=== PATIENT | female | born 1940 | race Caucasian/White ===

== ENCOUNTER → 2019-05-20 | Outpatient (CLI) | payer MEDICARE ==
--- NOTE | 2019-05-20 14:16 | BD ---
EXAMINATION TYPE: Axial Bone Density DATE OF EXAM: 05/20/2019 COMPARISON: 08.26.2014 CLINICAL HISTORY: 79 YR OLD WOMAN...ICD-10 CODE: M85.80 BONE DISORDER Height: 61.4 Weight: 166 FRAX RISK QUESTIONS: Secondary Osteoporosis: YES 4. Malnutrition: YES, VOMITING OFTEN, LACK OF NUTRIENTS. RISK FACTORS HISTORY OF: HX OF ELBOW FX CHILD, Family History of Osteoporosis: POSSIBLY MOTHER, W/O FX OF HIP Diet low in dairy products/other sources of calcium: YES Postmenopausal woman: TOTAL HYST AT AGE 51 Take estrogen and/or progesterone medications: PREMARIN IN THE PAST FOR ABOUT 10 YRS Lost more than 2 inches in height since high school: YES Frequent falls: USES A CANE MEDICATIONS: Thyroid Medications: YES, LEVOTHYROXINE FOR ABOUT 15 YRS Additional Medications: BP MEDS, REFLUX MEDS, VITAMINS, ASPIRIN, TYLENOL, IRON TABLET, STATIN FOR CHO LESTEROL Additional History: FREQUENT VOMITING, OSTEOARTHRITIS, REFLUX, HYPERTENSION, EXAM MEASUREMENTS: Bone mineral densitometry was performed using the Vusion System. Bone mineral density as measured about the Lumbar spine is: ----- L1-L4(G/cm2): 1.355 T Score Values are as follows: ----- L1: 1.1 ----- L2: 0.8 ----- L3: 1.6 ----- L4: 2.1 ----- L1-L4: 1.5 Bone mineral density has: Increased 6.2% SINCE STUDY OF, 08.26.2014 Bone mineral density about the R hip (g/cm2): 0.904 Bone mineral density about the L hip (g/cm2): 0.819 T Score values are as follows: -----R Neck: -2.4 -----L Neck: -2.7 -----R Total: -0.8 -----L Total: -1.5 Bone mineral density has: Decreased -12.5% SINCE STUDY OF , 08.26.2014 FRAX%s: THERE IS A 19.9% CHANCE FOR A MAJOR OSTEOPOROTIC FX AND 7.2% FOR HIP....PROBABILITY FOR FX IN 10 YRS TIME IMPRESSION: Osteoporosis (T Score less than -2.5). There is increased fracture risk and therapy is usually indicated based on age. Re-Screen 1-2 years. NOTE: T-SCORE=SD OF THE YOUNG ADULT MEAN.
--- NOTE | 2019-05-24 09:25 | MM ---
Reason for exam: screening (asymptomatic). Last mammogram was performed 2 years and 8 months ago. History: Patient is postmenopausal. 2 benign excisional biopsies of the left breast. 2 benign excisional biopsies of the right breast. Took estrogen for 13 years beginning at age 51. Physical Findings: A clinical breast exam by your physician is recommended on an annual basis and results should be correlated with mammographic findings. MG 3D Screening Mammo W/Cad Bilateral CC and MLO view(s) were taken. Prior study comparison: September 25, 2016, left breast MG work up mamm w CAD LT. September 09, 2016, bilateral MG screening mammo w CAD. The breast tissue is heterogeneously dense. This may lower the sensitivity of mammography. No significant changes when compared with prior studies. ASSESSMENT: Benign, BI-RAD 2 RECOMMENDATION: Routine screening mammogram of both breasts in 1 year.
== END | disposition home or self-care (01) ==
LOC: RADMAMWWP 09:42
PROVIDERS: ATTEND Internal Medicine
DX: Z12.31 Encounter for screening mammogram for malignant neoplasm of breast (principal); M81.0 Age-related osteoporosis without current pathological fracture
CPT/HCPCS: 77063; 77067; 77080

== ENCOUNTER → 2019-06-29 | Outpatient (CLI) | payer MEDICARE ==
--- NOTE | 2019-06-29 10:44 | US ---
EXAMINATION TYPE: US abdomen complete DATE OF EXAM: 06/29/2019 COMPARISON: NONE CLINICAL HISTORY: Abnormal Wt Loss R63.4. Abnormal weight loss. Bloating. EXAM MEASUREMENTS: Liver Length: 16.9 cm Gallbladder Wall: Surgically absent cm CBD: 0.6 cm Spleen: 8.3 cm Right Kidney: 9.0 x 3.5 x 4.0 cm Left Kidney: 9.3 x 4.0 x 3.3 cm Pancreas: Obscured by bowel gas Liver: Again there are numerous hepatic cysts varying in size. Some of these contain thin internal s epta. These appear to measure up to at least 4.2 cm. No solid hepatic lesion is demonstrated on today 's exam. Numerous hepatic cysts are seen on the prior exam of 02/04/2012. Gallbladder: Surgically absent Evidence for sonographic Contreras's sign: No CBD: wnl Spleen: wnl Right Kidney: wnl Left Kidney: wnl Upper IVC: wnl Abd Aorta: wnl The liver is heterogenous with numerous cysts. The intrahepatic portion of the IVC and proximal abdom inal aorta are within normal limits. Gallbladder surgically absent. Common bile duct is unremarkable . The visualized portions of the pancreas are homogenous. The spleen is unremarkable. Kidneys are symmetric and free of hydronephrosis. No renal lesions are seen. IMPRESSION: 1. Pancreas is obscured by overlying bowel gas. 2. Numerous simple appearing hepatic cysts with no internal complexity nor solid lesion seen at this time.
--- NOTE | 2019-06-29 10:47 | US ---
EXAMINATION TYPE: US pelvic complete DATE OF EXAM: 06/29/2019 COMPARISON: NONE CLINICAL HISTORY: Abnormal Wt Loss R63.4. Abnormal weight loss. Total hysterectomy. TECHNIQUE: Transabdominal (TA). EXAM MEASUREMENTS: Uterus: Surgically absent cm Endometrial Stripe: Surgically absent cm Right Ovary: Surgically absent cm Left Ovary: Surgically absent cm 1. Uterus: Surgically absent 2. Endometrium: Surgically absent 3. Right Ovary: Surgically absent 4. Left Ovary: Surgically absent 5. Bilateral Adnexa: wnl IMPRESSION: Surgical absence of the ovaries and uterus. No solid mass or suspicious cystic mass is se en within the pelvis.
== END | disposition home or self-care (01) ==
LOC: RADUSWWP 09:16
PROVIDERS: ATTEND Internal Medicine Gastroenterology
DX: K76.89 Other specified diseases of liver (principal); Z90.710 Acquired absence of both cervix and uterus; Z90.722 Acquired absence of ovaries, bilateral
CPT/HCPCS: 76700; 76856; 76857

== ENCOUNTER 2019-08-04 10:53 | Day surgery (SDC) | payer MEDICARE ==
[2019-08-02 15:50] VITALS: BMI 30.4
[~2019-08-04 10:53] MED LIST: LACTATED RINGERS 1,000 ML IV SCH; LIDOCAINE 1% 20 ML VIAL (10MG/ML) FOR IV START INTRADERMA PRN
[2019-08-04 11:24] VITALS: RESP 18; TEMP 98.8
[2019-08-04] MEDS ORDERED: LIDOCAINE 1% INJ 10MG/ML (20 ML MDV) ONE (12:31)
[2019-08-04] MEDS ORDERED: PROPOFOL 10 MG/ML 20 ML VIAL IV ONE (12:31)
--- NOTE | 2019-08-04 12:42 | P.PCN ---
Date of Procedure: 08/04/19 Procedure(s) Performed: BRIEF HISTORY: Patient is a 79-year-old, pleasant, white female scheduled for an upper endoscopy as a part of evaluation of chronic persistent intermittent epigastric pain associated with loss of almost 30 pounds in the last 6 months duration. He was treated with Prilosec 20 mg daily with some improvement in his symptoms. She is hence scheduled for an upper endoscopy to evaluate further. PROCEDURE PERFORMED: Esophagogastroduodenoscopy with biopsy. PREOPERATIVE DIAGNOSIS: Chronic intermittent epigastric pain for 6 months duration and progressive weight. IV sedation per anesthesia. PROCEDURE: After informed consent was obtained, the patient was brought into the endoscopy unit. IV sedation was administered by Anesthesia under continuous monitoring. Initially the Olympus GIF-140 video endoscope was inserted into the mouth. Esophagus intubated without any difficulty. It was gradually advanced into the stomach and duodenum and carefully examined. The bulb and the second part of the duodenum appeared normal. The scope at this time was withdrawn to the stomach, adequately insufflated with air, and upon careful examination the antrum had mild gastritis and biopsies were done from this area., Rest of the mucosa of the body, cardia and the fundus appeared normal. The scope was then withdrawn into the esophagus. The GE junction was located at 39 cm from the incisors. There was a moderate size paraesophageal hiatal hernia noted. The esophagus appeared normal. There were no erosions or ulcerations seen and the patient tolerated the procedure well. IMPRESSION: 1. Paraesophageal hiatal hernia. 2. Mild antral gastritis. RECOMMENDATIONS: The findings of this examination were discussed with the patient as well as her family. She was advised to follow with the biopsy results. In the meantime she will continue with Prilosec 20 mg twice daily and follow antireflux measures. She was increased on the small frequent meals. She will also be scheduled for CT of abdomen to rule out pancreatic pathology. She was advised to follow up in office in 2 weeks
[2019-08-04 13:07] VITALS: BP 131/70; PULSE 62
== END 2019-08-04 13:15 | disposition home or self-care (01) ==
LOC: ORWHC2ENDO 10:53
PROVIDERS: ATTEND Internal Medicine Gastroenterology
DX: K29.50 Unspecified chronic gastritis without bleeding (principal); K29.80 Duodenitis without bleeding; K21.9 Gastro-esophageal reflux disease without esophagitis; K44.9 Diaphragmatic hernia without obstruction or gangrene; G89.29 Other chronic pain; I10 Essential (primary) hypertension; E07.9 Disorder of thyroid, unspecified; Z88.2 Allergy status to sulfonamides; Z88.0 Allergy status to penicillin; Z88.1 Allergy status to other antibiotic agents; Z88.5 Allergy status to narcotic agent; Z88.8 Allergy status to other drugs, medicaments and biological substances; Z79.899 Other long term (current) drug therapy; Z79.890 Hormone replacement therapy
CPT/HCPCS: 88305; 43239; J2001; J2704

== ENCOUNTER → 2019-08-06 | Outpatient (CLI) | payer MEDICARE ==
--- NOTE | 2019-08-06 13:32 | CT ---
EXAMINATION TYPE: CT abdomen pelvis w con DATE OF EXAM: 08/06/2019 HISTORY: Abdominal pain and bloating. 20lb weight loss over past year and half. CT DLP: 1190mGycm Automated Exposure Control for Dose Reduction was Utilized. CONTRAST: CT scan of the abdomen and pelvis is performed with IV Contrast, patient injected with 100 mL of Isov ue M300. COMPARISON: Complete abdominal ultrasound June 29, 2019 FINDINGS: LUNG BASES: There is intrathoracic stomach with abnormal twisting as the greater curvature is more cr anial in position than lesser curvature. This is more paraesophageal type as gastroesophageal juncti on remains below diaphragm Moderate three-vessel coronary artery calcification is present which is no manolo marked of underlying coronary artery disease. LIVER/GB: Enlarged right hepatic lobe. Innumerable simple appearing thin-walled cysts along with some lobulated simple cysts and simple appearing cysts within septa are scattered throughout the liver. T here are areas of parenchymal calcification more prominent in the upper liver. Cholecystectomy clips are noted. Findings correlate with ultrasound. PANCREAS: No significant abnormality is seen. SPLEEN: No significant abnormality is seen. ADRENALS: No significant abnormality is seen. KIDNEYS: No significant abnormality is seen. BOWEL: Oral contrast reaches the level of the splenic flexure. Low-lying cecum at the right pelvis is present. No suspicious small or large bowel dilatation. Some diverticula in the left and sigmoid col on are present. No CT evidence for acute diverticulitis. UTERUS/ADNEXA: Uterus is surgically absent. LYMPH NODES: No greater than 1cm abdominal or pelvic lymph nodes are appreciated. OSSEOUS STRUCTURES: Moderate narrowing and spurring left L4-L5 level. OTHER: Moderate calcified plaque of the aorta extends into branch vessels. IMPRESSION: 1. No ascites. No bowel obstruction. 2. No suspicious mass or adenopathy. 3. Large paraesophageal hernia or intrathoracic stomach with abnormal twisting. Advise surgical refer ral if this is not known finding. 4. Right lobe hepatomegaly with innumerable fairly simple appearing cysts scattered throughout the li shari redemonstrated.
== END | disposition home or self-care (01) ==
LOC: RADCTMAIN 10:19
PROVIDERS: ATTEND Internal Medicine Gastroenterology
DX: R16.0 Hepatomegaly, not elsewhere classified (principal); R10.13 Epigastric pain
CPT/HCPCS: 82565; 84520; 74177; 36415; Q9967

== ENCOUNTER 2020-04-25 10:43 | Day surgery (SDC) | payer MEDICARE ==
[2020-04-19 16:22] VITALS: BMI 30.2
[~2020-04-25 10:43] MED LIST changes: +ALPRAZolam 0.25 MG TAB PO PRN; +ALPRAZolam 0.5 MG TAB PO PRN; -LACTATED RINGERS 1,000 ML IV SCH; -LIDOCAINE 1% 20 ML VIAL (10MG/ML) FOR IV START INTRADERMA PRN; +NITROGLYCERIN SL TABS 0.4 MG TAB SUBLINGUAL PRN; +SODIUM CHLORIDE 0.9% 1,000 ML in EMPTY BAG 1 BAG IV ONE
[2020-04-25] MEDS ORDERED: LIDOCAINE 1% INJ 10MG/ML (20 ML MDV) SQ ONE (13:19)
[2020-04-25] MEDS ORDERED: MIDAZOLAM 2 MG/2 ML VIAL IV ONE (13:20)
[2020-04-25] MEDS ORDERED: BIVALIRUDIN BOLUS 250 MG/50 ML IV ONE (13:30)
[2020-04-25] MEDS ORDERED: NITROGLYCERIN 1000MCG/10ML SYRINGE INTRACORON ONE (13:34)
[2020-04-25] MEDS ORDERED: BIVALIRUDIN 250 MG in SODIUM CHLORIDE 0.9% 39.5 ML IV ONE (13:34)
[2020-04-25] MEDS ORDERED: CLOPIDOGREL 75 MG TAB PO ONE (13:34)
[2020-04-25] MEDS ORDERED: IOPAMIDOL-370 125ML BTL INJ ONE (13:35)
[2020-04-25] MEDS ORDERED: ATROPINE SULFATE 0.1 MG/ML 10ML SYRINGE IV PRN (13:48)
[2020-04-25] MEDS ORDERED: MAG HYDROX/AL HYDROX/SIMETH 30 ML CUP PO PRN (13:48)
[2020-04-25] MEDS ORDERED: ZOLPIDEM 5 MG TAB PO PRN (13:48)
[2020-04-25] MEDS ORDERED: RX INFO: IV CONTRAST WAS GIVEN 1 EACH MISC MISCELLANE PRN (13:48)
[2020-04-25] MEDS ORDERED: SODIUM CHLORIDE 0.9% 1,000 ML IV SCH (14:00)
--- NOTE | 2020-04-25 17:03 | CC ---
CARDIAC CATHETERIZATION REPORT DATE OF SERVICE: 04/25/2020. PERFORMING PHYSICIAN: Rosalino Franco M.D. PROCEDURE PERFORMED: 1. Selective right and left coronary angiogram. 2. Left heart catheterization. 3. Successful stenting of the mid right coronary artery using a 4.0 x 15 mm Xience drug-eluting stent with an excellent angiographic result. INDICATION: This is a 80-year-old female patient with hypertension and dyslipidemia who was experiencing symptoms of shortness of breath with exertion in spite of maximized medical treatment. Because of that, heart catheterization was advised. APPROACH: Right common femoral artery. COMPLICATIONS: None. LEVEL OF SEDATION: Moderate, with sedation length of 18 minutes. PROCEDURE DESCRIPTION: After obtaining informed consent, the patient was brought to the cardiac catheter finisher and inspector. The right common femoral artery was cannulated using micropuncture technique. The micropuncture wire passed easily. Then I placed a 6-British sheath. After that I did selective right and left coronary angiogram with JR3.5 and JL3.5 catheters. Left heart catheterization was performed using 6-British pigtail catheter. After that I did intervene on the RCA. Please see separate paragraph for that. SELECTIVE CORONARY ANGIOGRAM: 1. The RCA is a large-caliber vessel. It is a dominant vessel. The mid RCA has a lesion that appeared to be in the range of 70%. 2. The left main is angiographically normal. It bifurcates into LCX and LAD. 3. The LCX is a large-caliber vessel. It is a nondominant vessel. The LCX has mild disease only. In the mid portion it gives rise to an OM1 and OM2 and both appeared to be angiographically normal. 4. The LAD. The proximal LAD appeared to be angiographically normal. The mid LAD has mild disease only by the bifurcation of a medium-sized diagonal branch. The LAD distally appeared to be tortuous but angiographically normal. 5. HEMODYNAMICS: The LVEDP was 10 to 12 mmHg without significant gradient across the aortic valve. of the RCA. PERCUTANEOUS CORONARY INTERVENTION OF THE RIGHT CORONARY ARTERY: Anticoagulation was initiated using Angiomax. Subsequently I did engage the RCA using JR3.5 guide. I did wire it using a run-through wire. After that I did direct stenting of the lesion in the RCA using 4.0 x 15 mm Xience LISA where the stent was positioned under fluoroscopic guidance and deployed under 8 atmospheres for 20 seconds. The following angiogram showed good angiographic results and the procedure was completed without any complication. CONCLUSION: 1. 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 2. Mild disease involving the left coronary system. 3. Successful stenting of the mid RCA using a 4.0 x 15 mm Xience LISA with an excellent angiographic result. POST-PROCEDURE MANAGEMENT: 1. Medical treatment. 2. Follow up with the patient. MMODL / IJN: [id number] /
[2020-04-25] MEDS ORDERED: lisinopriL 20 MG TAB PO SCH (21:00)
[2020-04-26] MEDS ORDERED: LEVOTHYROXINE 100 MCG TAB PO SCH (06:30)
[2020-04-26 07:54] LABS: Basophils % (A) 0 %; Eosinophils # (A) 0.2 k/uL (0-0.7); Eosinophils % (A) 4 %; HCT 35.6 % (34.0-46.0); HGB 11.2 gm/dL (11.4-16.0); Lymphocytes # (A) 1.3 k/uL (1.0-4.8); Lymphocytes % (A) 32 %; MCH 28.9 pg (25.0-35.0); MCHC 31.6 g/dL (31.0-37.0); MCV 91.6 fL (80.0-100.0); Mean Platelet Volume 8.3; Monocytes # (A) 0.3 k/uL (0-1.0); Monocytes % (A) 8 %; Neutrophils # (A) 2.1 k/uL (1.3-7.7); Neutrophils % (A) 52 %; Platelet Count 170 k/uL (150-450); RBC 3.89 m/uL (3.80-5.40); RDW 13.4 % (11.5-15.5)
[2020-04-26 08:06] LABS: African American GFR (CKD) >90 (>60 ml/min/1.73 sqM); Anion Gap 4 mmol/L; Blood Urea Nitrogen 18 mg/dL (7-17); Calcium 8.2 mg/dL (8.4-10.2); Carbon Dioxide 24 mmol/L (22-30); Chloride 108 mmol/L (98-107); Glucose 80 mg/dL (74-99); Non-African American GFR(CKD) 81 (>60 ml/min/1.73 sqM); Potassium 4.1 mmol/L (3.5-5.1); Sodium 136 mmol/L (137-145)
--- NOTE | 2020-04-26 08:17 | P.DS ---
Providers Date of admission: March 262019 Attending physician: Rosalino Franco Consults: 04/25/20 13:48 Consult Physician Routine Consulting Provider: [facility] Consult Reason/Comments: Post Interventional patient Do you want consulting provider notified?: Already Contacted Primary care physician: Olive Hendrickson [facility] Course: This is a 80-year-old female patient was hypertension and dyslipidemia was experiencing symptoms of shortness of breath with exertion. She underwent heart catheterization yesterday and that revealed severe single-vessel coronary artery disease involving the mid RCA. She underwent successful stenting of the RCA with a good angiographic results and without any complication from a right groin approach The right groin is soft and nontender and without any bruises. The patient is going to be discharged home on dual antiplatelet therapy along with high intensity statin. I am going to follow-up with the patient next week in the office. Plan - Discharge Summary Discharge Rx Participant: No New Discharge Prescriptions: New Aspirin 325 mg PO DAILY #90 tab Atorvastatin Calcium [Lipitor] 80 mg PO DAILY #90 tablet Clopidogrel [Plavix] 75 mg PO DAILY #90 tab No Action Nadolol [Corgard] 40 mg PO DAILY Furosemide [Lasix] 20 mg PO DAILY Enalapril [Vasotec] 20 mg PO DAILY Alendronate Sodium [Fosamax] 70 mg PO WE Omeprazole [PriLOSEC] 20 mg PO AC-BRKFST Levothyroxine Sodium 100 mcg PO DAILY Vit C/E/Zn/Coppr/Lutein/Zeaxan [Preservision Areds 2 Softgel] 1 each PO DAILY Multivitamin with Iron [Multivitamins with Iron] 1 each PO DAILY Enalapril [Vasotec] 10 mg PO HS ALPRAZolam [Xanax] 0.25 mg PO BID PRN PRN Reason: Anxiety Acetaminophen Tab [Tylenol] 325 mg PO DAILY PRN PRN Reason: Pain Mineral Supplement 1 tab PO DAILY Discharge Medication List ALPRAZolam [Xanax] 0.25 mg PO BID PRN 08/02/19 [History] Alendronate Sodium [Fosamax] 70 mg PO WE 08/02/19 [History] Enalapril [Vasotec] 10 mg PO HS 08/02/19 [History] Enalapril [Vasotec] 20 mg PO DAILY 08/02/19 [History] Furosemide [Lasix] 20 mg PO DAILY 08/02/19 [History] Levothyroxine Sodium 100 mcg PO DAILY 08/02/19 [History] Multivitamin with Iron [Multivitamins with Iron] 1 each PO DAILY 08/02/19 [History] Nadolol [Corgard] 40 mg PO DAILY 08/02/19 [History] Omeprazole [PriLOSEC] 20 mg PO AC-BRKFST 08/02/19 [History] Vit C/E/Zn/Coppr/Lutein/Zeaxan [Preservision Areds 2 Softgel] 1 each PO DAILY 08/02/19 [History] Acetaminophen Tab [Tylenol] 325 mg PO DAILY PRN 04/19/20 [History] Mineral Supplement 1 tab PO DAILY 04/19/20 [History] Aspirin 325 mg PO DAILY #90 tab 04/26/20 [Rx] Atorvastatin Calcium [Lipitor] 80 mg PO DAILY #90 tablet 04/26/20 [Rx] Clopidogrel [Plavix] 75 mg PO DAILY #90 tab 04/26/20 [Rx] Follow up Appointment(s)/Referral(s): Rosalino Franco MD [STAFF PHYSICIAN] - 05/04/20 1:00 pm
[2020-04-26] MEDS ORDERED: ASPIRIN 325 MG TAB PO SCH (09:00)
[2020-04-26] MEDS ORDERED: lisinopriL 20 MG TAB PO SCH (09:00)
[2020-04-26] MEDS ORDERED: CLOPIDOGREL 75 MG TAB PO SCH (12:00)
[2020-04-26] MEDS ORDERED: NON FORMULARY DRUG (Alendronate Sodium [Fosamax] 70 MG) PO SCH (13:50)
[2020-04-28 05:35] VITALS: BP 143/60; PULSE 54; RESP 16; TEMP 97.5
== END 2020-04-26 10:00 | disposition home or self-care (01) ==
LOC: CATHCVL 10:43 → 3SCARD 18:35 → CATHCVL 04-26 10:00
PROVIDERS: ATTEND Internal Medicine Interventional Cardiology
DX: I25.110 Atherosclerotic heart disease of native coronary artery with unstable angina pectoris (principal); I10 Essential (primary) hypertension; I38 Endocarditis, valve unspecified; E78.5 Hyperlipidemia, unspecified; Z82.49 Family history of ischemic heart disease and other diseases of the circulatory system; Z79.899 Other long term (current) drug therapy; Z88.2 Allergy status to sulfonamides; Z88.5 Allergy status to narcotic agent
CPT/HCPCS: 93458; 80048; 85025; C9600; C1760; C1769 ×3; C1894; C1887; C1874; J2250; J2001; J0583; Q9967

== ENCOUNTER → 2021-05-08 | Outpatient (CLI) | payer MEDICARE ==
--- NOTE | 2021-05-08 10:06 | US ---
EXAMINATION TYPE: US abdomen complete DATE OF EXAM: 05/08/2021 COMPARISON: 08/06/2019, 06/29/2019 CLINICAL HISTORY: R94.5 ABN LIVER FUNCTIONS. no symptoms, h/o liver cysts and cholecystectomy, recent abn liver function test EXAM MEASUREMENTS: Liver Length: 16.0 cm Gallbladder Wall: Surgically absent CBD: 0.8 cm Spleen: 8.0 cm Right Kidney: 9.8 x 3.7 x 3.3 cm Left Kidney: 8.9 x 3.5 x 4.2 cm Pancreas: wnl Liver: innumerable liver cysts seen that distorts views of liver Gallbladder: Surgically absent Evidence for sonographic Contreras's sign: no CBD: wnl Spleen: wnl Right Kidney: wnl Left Kidney: wnl Upper IVC: wnl Abd Aorta: wnl Common bile duct is unremarkable. The visualized portions of the pancreas are homogenous. The splee n is unremarkable. Kidneys are symmetric and free of hydronephrosis. No renal lesions are seen. IMPRESSION: 1. Hepatic cysts are again seen. 2. Status post cholecystectomy.
== END | disposition home or self-care (01) ==
LOC: RADUSWWP 07:44
PROVIDERS: ATTEND Family Medicine
DX: K76.89 Other specified diseases of liver (principal); Z90.49 Acquired absence of other specified parts of digestive tract
CPT/HCPCS: 76700

== ENCOUNTER → 2021-08-28 | Outpatient (CLI) | payer MEDICARE ==
[2021-08-28 11:50] LABS: HGB 12.5 gm/dL (11.4-16.0); MCH 31.2 pg (25.0-35.0); MCHC 33.8 g/dL (31.0-37.0); MCV 92.4 fL (80.0-100.0); Mean Platelet Volume 8.3; Platelet Count 199 k/uL (150-450); RDW 13.3 % (11.5-15.5); WBC 5.5 k/uL (3.8-10.6)
== END | disposition home or self-care (01) ==
LOC: LABPAT 10:23
PROVIDERS: ATTEND Obstetrics & Gynecology
DX: Z01.818 Encounter for other preprocedural examination (principal); I10 Essential (primary) hypertension; Q52.5 Fusion of labia; N95.2 Postmenopausal atrophic vaginitis; R00.1 Bradycardia, unspecified
CPT/HCPCS: 85027; 93005

== ENCOUNTER 2021-08-30 05:57 | Day surgery (SDC) | payer MEDICARE ==
[2021-08-29 10:04] VITALS: BMI 26.9
[~2021-08-30 05:57] MED LIST changes: -ALPRAZolam 0.25 MG TAB PO PRN; -ALPRAZolam 0.5 MG TAB PO PRN; +LACTATED RINGERS 1,000 ML IV SCH; +LIDOCAINE 1% (10MG/ML) FOR IV START INTRADERMA PRN; -NITROGLYCERIN SL TABS 0.4 MG TAB SUBLINGUAL PRN; +ONDANSETRON 4 MG/2 ML VIAL IVP ONE; +Pre Op ABX Message 1 EACH MISC MISCELLANE ONE; -SODIUM CHLORIDE 0.9% 1,000 ML in EMPTY BAG 1 BAG IV ONE
[2021-08-30] MEDS ORDERED: fentaNYL (PF) 50 MCG/ML 2 ML AMP IV PRN (07:00)
[2021-08-30] MEDS ORDERED: LIDOCAINE 1% (10MG/ML) FOR IV START INTRADERMA ONE (07:03)
[2021-08-30] MEDS ORDERED: FAMOTIDINE 20 MG/2 ML VIAL IVP ONE (07:11)
[2021-08-30] MEDS ORDERED: DEXAMETHASONE SOD PHOSPHATE 4 MG/ML 1 ML VIAL IV ONE (07:11)
[2021-08-30] MEDS ORDERED: PROPOFOL 10 MG/ML 20 ML VIAL IV ONE (08:02)
[2021-08-30] MEDS ORDERED: LIDOCAINE 1% INJ 10MG/ML (20 ML MDV) ONE (08:02)
[2021-08-30] MEDS ORDERED: fentaNYL (PF) 50 MCG/ML 2 ML AMP ONE (08:02)
--- NOTE | 2021-08-30 08:32 | P.OP ---
Date of Procedure: 08/30/21 Preoperative Diagnosis: Near complete labial fusion Postoperative Diagnosis: Same, severe vaginal atrophy Procedure(s) Performed: Separation labial fusion Anesthesia: LOULOUA Surgeon: Ashley Fleming Estimated Blood Loss (ml): 2 IV fluids (ml): 100 Urine output (ml): 75 Pathology: none sent Condition: stable Disposition: PACU Description of Procedure: Patient is brought to the operating suite where anesthesia is administered without difficulty. She's placed in the dorsal lithotomy position. The appropriate timeout is performed to assure proper patient and procedural identification after prepping and draping of the perineal body. A Bovie is used on cutting, 25 W power, to begin the labial separation split. Once a plane is developed, sponge rolled finger tips are used to separate the near complete labial fusion. An excellent plane is noted, and the tissues separate with a moderate amount of traction. [place] catheter is then used to drain the bladder as the urethra is now visualized, 75 mL of clear yellow urine obtained. The inner labial amezcua and vaginal vault are hemostatically intact. Silvadene cream is used generously on this area. A 3-4 cm vaginal opening is obtained. Regina Pad is placed. All sponge and instrument counts are correct. Toradol is given, patient is then brought back to the recovery room in stable condition with a pulse of 52, blood pressure 132/57. 99% O2 saturation. Postoperative instructions are provided. Patient will follow-up with me in the office in 2 weeks for postoperative check. The Silvadene cream is given to the family, patient is to use this in each morning on the perineal body, and continue estrogen cream liberally at night.
[2021-08-30 08:39] VITALS: TEMP 97
[2021-08-30] MEDS ORDERED: KETOROLAC 15 MG/ML 1 ML VIAL ONE (08:44)
[2021-08-30] MEDS ORDERED: ONDANSETRON 4 MG/2 ML VIAL ONE (08:44)
[2021-08-30] MEDS ORDERED: ONDANSETRON 4 MG/2 ML VIAL IVP ONE (08:46)
[2021-08-30] MEDS ORDERED: KETOROLAC 15 MG/ML 1 ML VIAL IVP ONE (08:46)
[2021-08-30 09:41] VITALS: RESP 20
[2021-08-30 09:52] VITALS: PULSE 47
[2021-08-30 09:58] VITALS: BP 152/55
== END 2021-08-30 10:25 | disposition home or self-care (01) ==
LOC: OR 05:57
PROVIDERS: ATTEND Obstetrics & Gynecology
DX: N95.2 Postmenopausal atrophic vaginitis (principal)
CPT/HCPCS: 56441; J1100; J2405; J2001; J3010; J1885; J2704

== ENCOUNTER → 2022-05-13 | Outpatient (CLI) | payer MEDICARE ==
--- NOTE | 2022-05-13 09:40 | BD ---
EXAMINATION TYPE: Axial Bone Density DATE OF EXAM: 05/13/2022 COMPARISON: 08.26.2014 IN DATABASE CLINICAL HISTORY: 82 years year old Female. ICD-10 CODE: M81.0 Age-related osteoporosis without curr ent pat Height: 61 Weight: 152 FRAX RISK QUESTIONS: Secondary Osteoporosis: YES 4. Malnutrition: VOMITING OFTEN...LACK OF NUTRIENTS RISK FACTORS HISTORY OF: Family History of Osteoporosis: MOTHER ...NO FX Postmenopausal woman: TOTAL HYST AT 51 YRS OLD Take estrogen and/or progesterone medications: YES, FOR 10 YRS...NONE NOW Lost more than 2 inches in height since high school: YES Frequent falls: USES CANE, A BIT UNSTABLE Hyperparathyroidism: NO Adrenal Insufficiency: NO MEDICATIONS: Thyroid Medications: YES, SYNTHROID PRODUCT FOR 18 YRS Osteoporosis Medications: YES, FOSAMAX IN PAST, CANNOT TAKE NOW, WANTS TO TAKE PROLIA, DR MARIN BD FI RST Additional Medications: BP MEDS, REFLUX MEDS, VITAMINS, ASPIRIN, TYLENOL, FE SUPP. STATIN FOR CHOLEST IRMA, Additional History: ARTHRITIS, FREQUENT VOMITING, REFLUX, HYPERTENSION, EXAM MEASUREMENTS: Bone mineral densitometry was performed using the Scaleform System. Bone mineral density as measured about the Lumbar spine is: ----- L1-L4(G/cm2): 1.244 T Score Values are as follows: ----- L1: 0.6 ----- L2: 1.0 ----- L3: -0.4 ----- L4: 0.4 ----- L1-L4: 0.5 Bone mineral density has: Decreased -1.7% since study of: 08.26.2014 Bone mineral density about the R hip (g/cm2): 0.932 Bone mineral density about the L hip (g/cm2): 0.836 T Score values are as follows: -----R Neck: -2.1 -----L Neck: -2.3 -----R Total: -0.6 -----L Total: -1.4 Bone mineral density has: Decreased -10.2% since study of: 08.26.2014 FRAX%s: The graph provided illustrates a 17.5% chance for a major osteoporotic fx and a 5.9% chance f or the hips probability for fx in 10 years time. IMPRESSION: Osteopenia (T Score between -2.5 and -1). There is slightly increased risk of fracture and the patient may be considered for treatment. Re-Screen 2-5 years. NOTE: T-SCORE=SD OF THE YOUNG ADULT MEAN.
== END | disposition home or self-care (01) ==
LOC: RADBDWWP 08:08
PROVIDERS: ATTEND Internal Medicine
DX: M85.89 Other specified disorders of bone density and structure, multiple sites (principal)
CPT/HCPCS: 77080

== ENCOUNTER 2022-12-06 23:46 | Observation (INO) | payer MEDICARE ==
[2022-12-07] MEDS ORDERED: SODIUM CHLORIDE 0.9% 1,000 ML IV STA (00:11)
[2022-12-07] MEDS ORDERED: ONDANSETRON 4 MG/2 ML VIAL IVP STA ×2 (00:12→02:59)
[2022-12-07] MEDS ORDERED: fentaNYL (PF) 50 MCG/ML 2 ML AMP IVP STA (00:12)
[2022-12-07] MEDS ORDERED: FAMOTIDINE 20 MG/2 ML VIAL IV STA (00:13)
--- NOTE | 2022-12-07 00:19 | ED ---
General Adult HPI - General Chief complaint: Nausea/Vomiting/Diarrhea Stated complaint: Abdominal Pain Time Seen by Provider: 12/06/22 23:58 Source: patient, family, RN notes reviewed, old records reviewed Mode of arrival: wheelchair Limitations: no limitations - History of Present Illness Initial comments: This is a pleasant 82-year-old female that presents with family with complaints of diffuse abdominal pain that started earlier this morning. Patient states that for several years she has had bouts of this abdominal pain that usually only lasts 3-4 hours. This pain is worse then previous episodes and is lasting much longer. She has had an endoscopy and colonoscopy with Dr. Whipple in the past and they're unable to determine the cause of her discomfort. States she felt chilled all day but denies fevers. Has not had a bowel movement today. Did have some vomiting clear liquid today. She does have a history of hiatal hernia, GERD, hypertension and coronary artery disease with stent. Denies any previous abdominal surgeries. -: days(s) (1) Location: abdomen Severity scale (1-10): 4 Quality: constant Consistency: constant Improves with: none Associated Symptoms: fever/chills (chills), nausea/vomiting - Related Data Home Medications Medication Instructions Recorded Confirmed ALPRAZolam [Xanax] 0.25 mg PO BID PRN 08/02/19 08/29/21 Alendronate Sodium [Fosamax] 70 mg PO FR 08/02/19 08/29/21 Enalapril [Vasotec] 20 mg PO DAILY 08/02/19 08/29/21 Furosemide [Lasix] 20 mg PO DAILY 08/02/19 08/29/21 Levothyroxine Sodium 100 mcg PO DAILY 08/02/19 08/29/21 Vit C/E/Zn/Coppr/Lutein/Zeaxan 1 each PO DAILY 08/02/19 08/29/21 [Preservision Areds 2 Softgel] nadoloL [Corgard] 40 mg PO DAILY 08/02/19 08/29/21 Aspirin 81 mg PO DAILY 08/29/21 08/29/21 Atorvastatin Calcium [Lipitor] 40 mg PO DAILY 08/29/21 08/29/21 Allergies Allergy/AdvReac Type Severity Reaction Status Date / Time amoxicillin [From Prevpac] Allergy Unknown Rash/Hives Verified 12/06/22 23:55 clarithromycin [From Prevpac] Allergy Unknown Rash/Hives Verified 08/30/21 06:38 hydrocodone [From Lortab] Allergy Unknown RED FACE Verified 08/30/21 06:38 AND SKIN YELLOW lansoprazole [From Prevpac] Allergy Unknown Rash/Hives Verified 08/30/21 06:38 morphine Allergy Unknown Nausea & Verified 08/30/21 06:38 Vomiting Sulfa (Sulfonamide Allergy Unknown Unknown Verified 08/30/21 06:38 Antibiotics) NSAIDS (Non-Steroidal AdvReac Vomiting Verified 08/30/21 06:38 Anti-Inflamma Patient : No Review of Systems ROS Statement: Those systems with pertinent positive or pertinent negative responses have been documented in the HPI. ROS Other: All systems not noted in ROS Statement are negative. 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 hx palpitations, SOB, "calcificaton in veins in heart", abdominal pain and bloating, diet contol "pre diabetic", urinary leakage, History of Any Multi-Drug Resistant Organisms: None Reported Past Surgical History: Bladder Surgery, Cholecystectomy, Hysterectomy Additional Past Surgical History / Comment(s): CHRISSY CATARACTS, BLADDER SUSPENSION, Past Anesthesia/Blood Transfusion Reactions: No Reported Reaction Additional Past Anesthesia/Blood Transfusion Reaction / Comment(s): DIFF IV STARTS Past Psychological History: Anxiety, Depression Past Alcohol Use History: Rare - Past Family History Mother Family Medical History: Cancer Additional Family Medical History / Comment(s): PANCREATIC CANCER General Exam Limitations: no limitations General appearance: alert, in no apparent distress Head exam: Present: atraumatic Eye exam: Absent: scleral icterus, conjunctival injection, periorbital swelling ENT exam: Present: mucous membranes moist Respiratory exam: Absent: respiratory distress, accessory muscle use Cardiovascular Exam: Present: bradycardia GI/Abdominal exam: Present: soft, tenderness (LLQ and epigastric). Absent: distended, guarding, rebound, rigid Extremities exam: Present: normal capillary refill. Absent: tenderness, pedal edema Neurological exam: Present: alert, oriented X3 Psychiatric exam: Present: normal affect, normal mood Skin exam: Present: warm, dry, normal color. Absent: cyanosis, diaphoretic Course Vital Signs 12/06/22 12/07/22 23:52 00:41 Temperature 98.1 F Pulse Rate 52 L 52 L Respiratory 20 18 Rate Blood Pressure 219/72 145/83 O2 Sat by Pulse 99 97 Oximetry - Reevaluation(s) Reevaluation #1: 12/07/22 02:[address] Mo who states can admit patient and they will watch her. Time: 02:14 EKG Findings - EKG Results: EKG shows: bradycardia (Sinus bradycardia with a ventricular rate of 52, NC interval 0.159, QRS 0.94, QTC 0.426; total T waves noted in V3-V5) Medical Decision Making - Medical Decision Making CT of the abdomen and pelvis shows a very large hiatal hernia and intrathoracic stomach. Heart size is normal. There are numerous cysts throughout the liver. Spleen is intact. No evidence of pancreatic mass. Colonic diverticulosis without diverticulitis. No bowel obstruction. Patient and family state that they are aware of hepatic cysts. Labs are unremarkable. EKG shows sinus bradycardia with a ventricular rate of 52, NC interval 0.159, QRS 0.94, QTC 0.426; total T waves noted in V3-V5 Urinalysis positive for leukocyte esterase, bacteria and 14 white blood cells. She was treated with Rocephin. Case discussed with Dr. Mo who states patient can be admitted with him on consult. Patient and family are agreeable to this plan of care. Case discussed with Dr. Castaneda Was pt. sent in by a medical professional or institution (, PA, OPERATIONS TRAINER, urgent care, hospital, or alf...) When possible be specific @ -no Did you speak to anyone other than the patient for history (EMS, parent, family, police, friend...)? What history was obtained from this source @ -family Did you review nursing and triage notes (agree or disagree)? Why? @ -yes i agree Were old charts reviewed (outside hosp., previous admission, EMS record, old EKG, old radiological studies, urgent care reports/EKG's, alf records)? Report findings @ -old ekg Differential Diagnosis (chest pain, altered mental status, abdominal pain women, abdominal pain men, vaginal bleeding, weakness, fever, dyspnea, syncope, headache, dizziness, GI bleed, back pain, seizure, CVA, palpatations, mental health, musculoskeletal)? @ -Differential Abdominal Pain Women: Appendicitis, Cholecystitis, diverticulosis, ischemic bowel, pancreatitis, hepatitis, UTI, gastroenteritis, AAA, incarcerated hernia, bowel obstruction, constipation, inflammatory bowel, hepatitis, peptic ulcer disease, splenic infarction, perforated viscus, kidney stone, this is not meant to be an all- inclusive list EKG interpreted by me (3pts min.). @ -yes as above X-rays interpreted by me (1pt min.). @ -[None done] CT interpreted by me (1pt min.). @ -CT interpreted by me shows numerous hepatic cysts and a large hiatal hernia. U/S interpreted by me (1pt. min.). @ -[None done] What testing was considered but not performed or refused? (CT, X-rays, U/S, labs)? Why? @ -no What meds were considered but not given or refused? Why? @ -no Did you discuss the management of the patient with other professionals (professionals i.e. , PA, OPERATIONS TRAINER, lab, RT, psych nurse, social media content manager, speech and language tutor, teacher, unclaimed property officer, counter caser)? Give summary @ -Dr Mo surgery Was smoking cessation discussed for >3mins.? @ -n/a Was critical care preformed (if so, how long)? @ -no Were there social determinants of health that impacted care today? How? (Homelessness, low income, unemployed, alcoholism, drug addiction, transportation, low edu. Level, literacy, decrease access to med. care, care home, rehab)? @ -no Was there de-escalation of care discussed even if they declined (Discuss DNR or withdrawal of care, Hospice)? DNR status @ -no What co-morbidities impacted this encounter? (DM, HTN, Smoking, COPD, CAD, Cancer, CVA, ARF, Chemo, Hep., AIDS, mental health diagnosis, sleep apnea, morbi d obesity)? @ -Hypertension, GERD, coronary artery disease Was patient admitted / discharged? Hospital course, mention meds given and route, prescriptions, significant lab abnormalities, going to OR and other pertinent info. @ -admitted Undiagnosed new problem with uncertain prognosis? @ -[No] Drug Therapy requiring intensive monitoring for toxicity (Heparin, Nitro, Insulin, Cardizem)? @ -no Were any procedures done? @ -no Diagnosis/symptom? @ -Large hiatal hernia with intrathoracic stomach, UTI Acute, or Chronic, or Acute on Chronic? @ -Acute on chronic hiatal hernia, acute UTI Uncomplicated (without systemic symptoms) or Complicated (systemic symptoms)? @ -complicated Side effects of treatment? @ -[No] Exacerbation, Progression, or Severe Exacerbation? @ -[No] Poses a threat to life or bodily function? How? (Chest pain, [place], [place], pneumonia, PE, COPD, DKA, ARF, appy, cholecystitis, CVA, Diverticulitis, Homicidal, Suicidal, threat to staff... and all critical care pts) @ -yes, large hiatal hernia with intrathoracic stomach with persistent nausea vomiting - Lab Data Result diagrams: 12/07/22 00:24 12/07/22 00:24 Lab Results 12/07/22 12/07/22 12/07/22 Range/Units 00:24 00:24 00:24 WBC 7.6 (3.8-10.6) k/uL RBC 4.51 (3.80-5.40) m/uL Hgb 13.2 (11.4-16.0) gm/dL Hct 40.8 (34.0-46.0) % MCV 90.5 (80.0-100.0) fL MCH 29.2 (25.0-35.0) pg MCHC 32.3 (31.0-37.0) g/dL RDW 13.7 (11.5-15.5) % Plt Count 202 (150-450) k/uL MPV 8.9 Neutrophils % 70 % Lymphocytes % 18 % Monocytes % 6 % Eosinophils % 3 % Basophils % 1 % Neutrophils # 5.3 (1.3-7.7) k/uL Lymphocytes # 1.4 (1.0-4.8) k/uL Monocytes # 0.5 (0-1.0) k/uL Eosinophils # 0.3 (0-0.7) k/uL Basophils # 0.1 (0-0.2) k/uL PT 10.4 (9.0-12.0) sec INR 1.0 (<1.2) APTT 24.3 (22.0-30.0) sec Sodium (137-145) mmol/L Potassium (3.5-5.1) mmol/L Chloride (98-107) mmol/L Carbon Dioxide (22-30) mmol/L Anion Gap mmol/L BUN (7-17) mg/dL Creatinine (0.52-1.04) mg/dL Est GFR (CKD-EPI)AfAm (>60 ml/min/1.73 sqM) Est GFR (CKD-EPI)NonAf (>60 ml/min/1.73 sqM) Glucose (74-99) mg/dL Plasma Lactic Acid [place] (0.7-2.0) mmol/L Calcium (8.4-10.2) mg/dL Total Bilirubin (0.2-1.3) mg/dL AST (14-36) U/L ALT (4-34) U/L Alkaline Phosphatase (38-126) U/L Troponin I (0.000-0.034) ng/mL Total Protein (6.3-8.2) g/dL Albumin (3.5-5.0) g/dL Amylase (30-110) U/L Lipase (23-300) U/L Urine Color Yellow Urine Appearance Clear (Clear) Urine pH 5.5 (5.0-8.0) Ur Specific [place] 1.023 (1.001-1.035) Urine Protein Negative (Negative) Urine Glucose (UA) Negative (Negative) Urine Ketones 1+ H (Negative) Urine Blood Negative (Negative) Urine Nitrite Negative (Negative) Urine Bilirubin Negative (Negative) Urine Urobilinogen <2.0 (<2.0) mg/dL Ur Leukocyte Esterase Moderate H (Negative) Urine RBC 2 (0-5) /hpf Urine WBC 14 H (0-5) /hpf Ur Squamous Epith Cells 1 (0-4) /hpf Urine Bacteria Rare H (None) /hpf Hyaline Casts 3 H (0-2) /lpf Urine Mucus Rare H (None) /hpf 12/07/22 12/07/22 12/07/22 Range/Units 00:24 00:24 00:24 WBC (3.8-10.6) k/uL RBC (3.80-5.40) m/uL Hgb (11.4-16.0) gm/dL Hct (34.0-46.0) % MCV (80.0-100.0) fL MCH (25.0-35.0) pg MCHC (31.0-37.0) g/dL RDW (11.5-15.5) % Plt Count (150-450) k/uL MPV Neutrophils % % Lymphocytes % % Monocytes % % Eosinophils % % Basophils % % Neutrophils # (1.3-7.7) k/uL Lymphocytes # (1.0-4.8) k/uL Monocytes # (0-1.0) k/uL Eosinophils # (0-0.7) k/uL Basophils # (0-0.2) k/uL PT (9.0-12.0) sec INR (<1.2) APTT (22.0-30.0) sec Sodium 136 L (137-145) mmol/L Potassium 4.4 (3.5-5.1) mmol/L Chloride 106 (98-107) mmol/L Carbon Dioxide 25 (22-30) mmol/L Anion Gap 5 mmol/L BUN 22 H (7-17) mg/dL Creatinine 0.80 (0.52-1.04) mg/dL Est GFR (CKD-EPI)AfAm 80 (>60 ml/min/1.73 sqM) Est GFR (CKD-EPI)NonAf 70 (>60 ml/min/1.73 sqM) Glucose 123 H (74-99) mg/dL Plasma Lactic Acid [place] 1.1 (0.7-2.0) mmol/L Calcium 9.6 (8.4-10.2) mg/dL Total Bilirubin 0.6 (0.2-1.3) mg/dL AST 23 (14-36) U/L ALT 21 (4-34) U/L Alkaline Phosphatase 93 (38-126) U/L Troponin I <0.012 (0.000-0.034) ng/mL Total Protein 6.9 (6.3-8.2) g/dL Albumin 4.2 (3.5-5.0) g/dL Amylase 102 (30-110) U/L Lipase 183 (23-300) U/L Urine Color Urine Appearance (Clear) Urine pH (5.0-8.0) Ur Specific [place] (1.001-1.035) Urine Protein (Negative) Urine Glucose (UA) (Negative) Urine Ketones (Negative) Urine Blood (Negative) Urine Nitrite (Negative) Urine Bilirubin (Negative) Urine Urobilinogen (<2.0) mg/dL Ur Leukocyte Esterase (Negative) Urine RBC (0-5) /hpf Urine WBC (0-5) /hpf Ur Squamous Epith Cells (0-4) /hpf Urine Bacteria (None) /hpf Hyaline Casts (0-2) /lpf Urine Mucus (None) /hpf Disposition Clinical Impression: Large hiatal hernia, UTI (urinary tract infection) Disposition: ADMITTED IP TO THIS HOSP Decision Date: 12/07/22 Decision Time: 02:16
[2022-12-07 01:10] LABS: Albumin 4.2 g/dL (3.5-5.0); Calcium 9.6 mg/dL (8.4-10.2); Potassium 4.4 mmol/L (3.5-5.1); Total Bilirubin 0.6 mg/dL (0.2-1.3); Total Protein 6.9 g/dL (6.3-8.2)
[2022-12-07] MEDS ORDERED: SODIUM CHLORIDE 0.9% 500 ML 500 ML IV ONE (01:23)
[2022-12-07 01:28] LABS: Basophils # (A) 0.1 k/uL (0-0.2); Basophils % (A) 1 %; Eosinophils # (A) 0.3 k/uL (0-0.7); Eosinophils % (A) 3 %; HCT 40.8 % (34.0-46.0); HGB 13.2 gm/dL (11.4-16.0); Lymphocytes # (A) 1.4 k/uL (1.0-4.8); Lymphocytes % (A) 18 %; MCH 29.2 pg (25.0-35.0); MCHC 32.3 g/dL (31.0-37.0); MCV 90.5 fL (80.0-100.0); Mean Platelet Volume 8.9; Monocytes # (A) 0.5 k/uL (0-1.0); Monocytes % (A) 6 %; Neutrophils # (A) 5.3 k/uL (1.3-7.7); Neutrophils % (A) 70 %; Platelet Count 202 k/uL (150-450); RBC 4.51 m/uL (3.80-5.40); RDW 13.7 % (11.5-15.5); WBC 7.6 k/uL (3.8-10.6)
[2022-12-07 01:36] LABS: Partial Thromboplastin Time 24.3 sec (22.0-30.0); Prothrombin Time 10.4 sec (9.0-12.0)
--- NOTE | 2022-12-07 01:55 | CT ---
EXAMINATION TYPE: CT abdomen pelvis w con DATE OF EXAM: 12/07/2022 COMPARISON: 08/06/2019 HISTORY: N/V/D, ABD PAIN. PRIOR ON PACS CT DLP: 773 mGycm Automated exposure control for dose reduction was used. CONTRAST: Performed with IV Contrast, patient injected with 100 mL of Isovue 300. Images obtained from the diaphragm to the floor the pelvis with the IV contrast. Lung bases are clear of consolidation. There is some mild atelectasis at the lung bases. There is shari y large hiatal hernia and intrathoracic stomach. Heart size is normal. No pericardial effusion. No pl eural effusion. There are numerous cysts throughout the liver. Spleen is intact. No evidence of pancr eatic mass. The bile ducts are not dilated. There are clips from cholecystectomy. There is no adrenal mass. Kidneys show satisfactory contrast opacification. No hydronephrosis. The ur eters are not dilated. Bladder distends smoothly. No inguinal hernia. No free fluid in the pelvis. No pelvic mass. There are sigmoid multiple diverticula. No diverticulitis. Abdominal aorta is atheromat ous. There are multiple calcifications throughout the liver. The lumbar vertebra appear intact. No co mpression fracture. There is narrowing at L4-5 disc. The bony pelvis is intact. The hip joints are in tact. Appendix not seen. IMPRESSION: Numerous hepatic cysts. Hepatomegaly. Liver measures 21.5 cm. This is consistent with polycystic dise ase. Intrathoracic stomach. Colonic diverticulosis without diverticulitis. No bowel obstruction. No a dverse change compared to old exam.
[2022-12-07] MEDS ORDERED: NALOXONE 0.4 MG/ML 1 ML VIAL IV PRN (02:23)
[2022-12-07 02:39] LABS: Appearance,Urine Clear (Clear); Bacteria,Urine Rare /hpf; Bilirubin,Urine Negative (Negative); Blood,Urine Negative (Negative); Color,Urine Yellow; Glucose,Urine (UA) Negative (Negative); Hyaline Casts,Urine 3 /lpf (0-2); Ketones,Urine 1+ (Negative); Leukocyte Esterase,Urine Moderate (Negative); Mucus,Urine Rare /hpf; Nitrite,Urine Negative (Negative); PH, Urine 5.5 (5.0-8.0); Protein,Urine Negative (Negative); RBC,Urine 2 /hpf (0-5); Specific Gravity,Urine 1.023 (1.001-1.035); Squamous Epithelial Cell,Urine 1 /hpf (0-4); Urobilinogen,Urine <2.0 mg/dL (<2.0); WBC,Urine 14 /hpf (0-5)
[2022-12-07] MEDS ORDERED: HYDROmorphone 0.5 MG/0.5 ML SYRINGE IVP STA (03:40)
[2022-12-07] MEDS ORDERED: cloNIDine HCL 0.1 MG TAB PO PRN (04:09)
[2022-12-07] MEDS ORDERED: HYDROmorphone 0.5 MG/0.5 ML SYRINGE IVP PRN (04:10)
--- NOTE | 2022-12-07 04:39 | P.HPIM ---
History of Present Illness H&P Date: 12/07/22 Chief Complaint: abd pain , 82 year old female with CAD , hypertension , hypothyroid patient coming in due to worsening abd pain , food intolerance, nausea and dry heaving . she is known to have hiatal hernia , and for years she has been experiencing pain episodes lasting 2-4 hours, however, this time, started suddenly this morning and was not going away, for which she decided to get evaluated, she had EGD and C scope with GI in the past , but she is not sure if anything was found. denies fever, chills, chest pain , trouble breathing, wheezing, focal neuro deficits. denies any urinary changes. she denies any chest pain , or trouble breathing. Review of Systems Pertinent positives as noted in HPI. 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 hx palpitations, SOB, "calcificaton in veins in heart", abdominal pain and bloating, diet contol "pre diabetic", urinary leakage, History of Any Multi-Drug Resistant Organisms: None Reported Past Surgical History: Bladder Surgery, Cholecystectomy, Hysterectomy Additional Past Surgical History / Comment(s): CHRISSY CATARACTS, BLADDER SUSPENSION, Past Anesthesia/Blood Transfusion Reactions: No Reported Reaction Additional Past Anesthesia/Blood Transfusion Reaction / Comment(s): DIFF IV STARTS Past Psychological History: Anxiety, Depression Past Alcohol Use History: Rare - Past Family History Mother Family Medical History: Cancer Additional Family Medical History / Comment(s): PANCREATIC CANCER Medications and Allergies Home Medications Medication Instructions Recorded Confirmed Type ALPRAZolam [Xanax] 0.25 mg PO BID PRN 08/02/19 08/29/21 History Alendronate Sodium [Fosamax] 70 mg PO FR 08/02/19 08/29/21 History Enalapril [Vasotec] 20 mg PO DAILY 08/02/19 08/29/21 History Furosemide [Lasix] 20 mg PO DAILY 08/02/19 08/29/21 History Levothyroxine Sodium 100 mcg PO DAILY 08/02/19 08/29/21 History Vit C/E/Zn/Coppr/Lutein/Zeaxan 1 each PO DAILY 08/02/19 08/29/21 History [Preservision Areds 2 Softgel] nadoloL [Corgard] 40 mg PO DAILY 08/02/19 08/29/21 History Aspirin 81 mg PO DAILY 08/29/21 08/29/21 History Atorvastatin Calcium [Lipitor] 40 mg PO DAILY 08/29/21 08/29/21 History Allergies Allergy/AdvReac Type Severity Reaction Status Date / Time amoxicillin [From [facility]] Allergy Unknown Rash/Hives Verified 12/06/22 23:55 clarithromycin [From [facility]] Allergy Unknown Rash/Hives Verified 08/30/21 06:38 hydrocodone [From Lortab] Allergy Unknown RED FACE Verified 08/30/21 06:38 AND SKIN YELLOW lansoprazole [From [facility]] Allergy Unknown Rash/Hives Verified 08/30/21 06:38 morphine Allergy Unknown Nausea & Verified 08/30/21 06:38 Vomiting Sulfa (Sulfonamide Allergy Unknown Unknown Verified 08/30/21 06:38 Antibiotics) NSAIDS (Non-Steroidal AdvReac Vomiting Verified 08/30/21 06:38 Anti-Inflamma Physical Exam Vitals: Vital Signs Temp Pulse Resp BP Pulse Ox 12/07/22 00:41 52 L 18 145/83 97 12/06/22 23:52 98.1 F 52 L 20 219/72 99 Intake and Output 12/06/22 12/06/22 12/07/22 14:59 22:59 06:59 Other: Weight 63.503 kg Constitutional: No acute distress, conversant, pleasant Eyes: Anicteric sclerae, moist conjunctiva, Pupils equal round reactive to light ENMT: NC/AT Oropharynx clear, no erythema, or exudates Neck: Supple, no masses, or JVD No carotid bruits No thyromegaly Lungs: Clear to auscultation, decrease breath sound right lung base Clear to percussion Normal respiratory effort, no accessory muscle use Cardiovascular: Heart regular in rate and rhythm, No murmurs, gallops, or rubs No peripheral edema Abdominal: Soft Nontender, increase tympanic note of percussion throughout , no guarding, rebound or rigidity Abdomen moving with respiration Normoactive bowel sounds No hepatomegaly, No splenomegaly No palpable mass No abdominal wall hernia noted Skin: Normal temperature, tone, texture, turgor Extremities: No digital cyanosis No clubbing Pedal pulses intact and symmetrical Radial pulses intact and symmetrical No calf tenderness Psychiatric: Alert and oriented to person, place and time Appropriate affect fair judgement Neuro Muscles Strength 5/5 in all 4 extremities Sensation to light touch grossly present throughout Cranial nerves II-XII grossly intact Lymphatics: no palpable cervical or supraclavicular lymph nodes Results CBC & Chem 7: 12/07/22 00:24 12/07/22 00:24 Labs: Abnormal Lab Results - Last 24 Hours (Table) 12/07/22 12/07/22 Range/Units 00:24 00:24 Sodium 136 L (137-145) mmol/L BUN 22 H (7-17) mg/dL Glucose 123 H (74-99) mg/dL Urine Ketones 1+ H (Negative) Ur Leukocyte Esterase Moderate H (Negative) Urine WBC 14 H (0-5) /hpf Urine Bacteria Rare H (None) /hpf Hyaline Casts 3 H (0-2) /lpf Urine Mucus Rare H (None) /hpf Assessment and Plan Assessment: 82 year old female with hypertension , CAD s/p stents, coming in with sudden worsening of abd pain, I discussed the case with ED , I accepted rosalie admission for abd and chest pain , found to have large hiatal hernia , admitted with anticipated length of stay < 48 hours. haital hernia with intrathoracic stomach extension supportive care , IVF hydration whit normal saline and LR pain control with dilaudid IVP 0.5 mg TID PRN for systolic blood pressure >180 CT abd showed polycycstic disease of the liver. zofran 4 mg IVP PRN for nausea and vomiting renal function reviewed and stable NUN22/ Cr0.08 , hemoglobin stable 13.2 EKG showing peaked T wave, no electrolytes abnormalities. IVF hydration . continue with normal saline at 150 cc per our hypertension , poorly controlled , chronic added PRN clonidin 0.1 mg for systolic blood pressure >180 hypothyroid , resume levothyroxin 100 mcg daily h/o CAD s/p stents EKG showing hyperacute t wave K level normal 4.4 continue to monitor chronic afib , resume metoprolol incidental finding of polycystic hepatic system consider OP follow up with PCP no code DVT PPX heparin sc tid
[2022-12-07] MEDS: LEVOTHYROXINE 100 MCG TAB PO SCH (05:47)
[2022-12-07] MEDS: HEPARIN SODIUM,PORCINE/PF 5,000 UNIT/0.5 ML SYRINGE SQ SCH ×3 (09:18→23:29)
[2022-12-07] MEDS: lisinopriL 20 MG TAB PO SCH (09:19)
[2022-12-07] MEDS: PANTOPRAZOLE 40 MG TABLET PO SCH (09:19)
[2022-12-07] MEDS: ATORVASTATIN 40 MG TAB PO SCH (09:19)
--- NOTE | 2022-12-07 09:32 | P.GSCN ---
History of Present Illness Consult date: 12/07/22 Reason for Consult: Intrathoracic stomach History of present illness: This is an 82-year-old female who's had complaints of epigastric pain and dysphagia. Patient has a known hiatal hernia with large intrathoracic stomach. Patient states that her symptoms have worsened over the last several months. They've increased in frequency. 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 hx palpitations, SOB, "calcificaton in veins in heart", abdominal pain and bloating, diet contol "pre diabetic", urinary leakage, History of Any Multi-Drug Resistant Organisms: None Reported Past Surgical History: Bladder Surgery, Cholecystectomy, Hysterectomy Additional Past Surgical History / Comment(s): CHRISSY CATARACTS, BLADDER SUSPENSION, Past Anesthesia/Blood Transfusion Reactions: No Reported Reaction Additional Past Anesthesia/Blood Transfusion Reaction / Comm: DIFF IV STARTS Past Psychological History: Anxiety, Depression Past Alcohol Use History: Rare - Past Family History Mother Family Medical History: Cancer Additional Family Medical History / Comment(s): PANCREATIC CANCER Medications and Allergies Home Medications Medication Instructions Recorded Confirmed Type ALPRAZolam [Xanax] 0.25 mg PO BID PRN 08/02/19 08/29/21 History Alendronate Sodium [Fosamax] 70 mg PO FR 08/02/19 08/29/21 History Enalapril [Vasotec] 20 mg PO DAILY 08/02/19 08/29/21 History Furosemide [Lasix] 20 mg PO DAILY 08/02/19 08/29/21 History Levothyroxine Sodium 100 mcg PO DAILY 08/02/19 08/29/21 History Vit C/E/Zn/Coppr/Lutein/Zeaxan 1 each PO DAILY 08/02/19 08/29/21 History [Preservision Areds 2 Softgel] nadoloL [Corgard] 40 mg PO DAILY 08/02/19 08/29/21 History Aspirin 81 mg PO DAILY 08/29/21 08/29/21 History Atorvastatin Calcium [Lipitor] 40 mg PO DAILY 08/29/21 08/29/21 History Allergies Allergy/AdvReac Type Severity Reaction Status Date / Time amoxicillin [From [facility]] Allergy Unknown Rash/Hives Verified 12/06/22 23:55 clarithromycin [From [facility]] Allergy Unknown Rash/Hives Verified 08/30/21 06:38 hydrocodone [From [facility]] Allergy Unknown RED FACE Verified 08/30/21 06:38 AND SKIN YELLOW lansoprazole [From [facility]] Allergy Unknown Rash/Hives Verified 08/30/21 06:38 morphine Allergy Unknown Nausea & Verified 08/30/21 06:38 Vomiting Sulfa (Sulfonamide Allergy Unknown Unknown Verified 08/30/21 06:38 Antibiotics) NSAIDS (Non-Steroidal AdvReac Vomiting Verified 08/30/21 06:38 Anti-Inflamma Surgical - Exam Vital Signs Temp Pulse Resp BP Pulse Ox 98.1 F 52 L 20 219/72 99 12/06/22 23:52 12/06/22 23:52 12/06/22 23:52 12/06/22 23:52 12/06/22 23:52 - General well developed, well nourished, no distress - Eyes PERRL - ENT normal pinna - Neck no masses - Respiratory normal expansion - Cardiovascular Rhythm: regular - Abdomen Abdomen: soft, non tender Results - Labs 12/07/22 00:24 12/07/22 00:24 Abnormal Lab Results - Last 24 Hours (Table) 12/07/22 12/07/22 Range/Units 00:24 00:24 Sodium 136 L (137-145) mmol/L BUN 22 H (7-17) mg/dL Glucose 123 H (74-99) mg/dL Urine Ketones 1+ H (Negative) Ur Leukocyte Esterase Moderate H (Negative) Urine WBC 14 H (0-5) /hpf Urine Bacteria Rare H (None) /hpf Hyaline Casts 3 H (0-2) /lpf Urine Mucus Rare H (None) /hpf Microbiology - Last 24 Hours (Table) 12/07/22 00:24 Urine Culture - Preliminary Urine,Voided Diabetes panel 12/07/22 Range/Units 00:24 Sodium 136 L (137-145) mmol/L Potassium 4.4 (3.5-5.1) mmol/L Chloride 106 (98-107) mmol/L Carbon Dioxide 25 (22-30) mmol/L BUN 22 H (7-17) mg/dL Creatinine 0.80 (0.52-1.04) mg/dL Glucose 123 H (74-99) mg/dL Calcium 9.6 (8.4-10.2) mg/dL AST 23 (14-36) U/L ALT 21 (4-34) U/L Alkaline Phosphatase 93 (38-126) U/L Total Protein 6.9 (6.3-8.2) g/dL Albumin 4.2 (3.5-5.0) g/dL Calcium panel 12/07/22 Range/Units 00:24 Calcium 9.6 (8.4-10.2) mg/dL Albumin 4.2 (3.5-5.0) g/dL Pituitary panel 12/07/22 Range/Units 00:24 Sodium 136 L (137-145) mmol/L Potassium 4.4 (3.5-5.1) mmol/L Chloride 106 (98-107) mmol/L Carbon Dioxide 25 (22-30) mmol/L BUN 22 H (7-17) mg/dL Creatinine 0.80 (0.52-1.04) mg/dL Glucose 123 H (74-99) mg/dL Calcium 9.6 (8.4-10.2) mg/dL Adrenal panel 12/07/22 Range/Units 00:24 Sodium 136 L (137-145) mmol/L Potassium 4.4 (3.5-5.1) mmol/L Chloride 106 (98-107) mmol/L Carbon Dioxide 25 (22-30) mmol/L BUN 22 H (7-17) mg/dL Creatinine 0.80 (0.52-1.04) mg/dL Glucose 123 H (74-99) mg/dL Calcium 9.6 (8.4-10.2) mg/dL Total Bilirubin 0.6 (0.2-1.3) mg/dL AST 23 (14-36) U/L ALT 21 (4-34) U/L Alkaline Phosphatase 93 (38-126) U/L Total Protein 6.9 (6.3-8.2) g/dL Albumin 4.2 (3.5-5.0) g/dL Assessment and Plan Assessment: Paraesophageal hernia with intrathoracic stomach. Patient will undergo EGD on Friday.
--- NOTE | 2022-12-07 12:53 | P.PN ---
Progress Note - Text Progress Note Date: 12/07/22 Patient was seen today. Please refer to H&P for full documentation. Patient reports well-controlled abdominal pain. She denies any nausea and vomiting. Patient is in no acute distress. Plans to undergo EGD on Friday for paraesophageal hernia with intrathoracic stomach.
[2022-12-08 02:37] VITALS: RESP 17
[2022-12-08] MEDS: LEVOTHYROXINE 100 MCG TAB PO SCH (06:26)
[2022-12-08] MEDS: PANTOPRAZOLE 40 MG TABLET PO SCH (06:26)
[2022-12-08] MEDS: ATORVASTATIN 40 MG TAB PO SCH (09:16)
[2022-12-08] MEDS: HEPARIN SODIUM,PORCINE/PF 5,000 UNIT/0.5 ML SYRINGE SQ SCH ×2 (09:16→17:06)
[2022-12-08] MEDS: lisinopriL 20 MG TAB PO SCH (09:16)
--- NOTE | 2022-12-08 10:55 | P.PN ---
Progress Note - Text Progress Note Date: 12/08/22 Patient feels better today. She has states her epigastric pain is improved. She denies any nausea. She's tolerated some liquids for breakfast this morning. On exam her lesser stable. Abdomen soft. Large hiatal hernia with approximately. Patient is still unsure if she wants to undergo EGD. She has been tentatively aborted for EGD tomorrow. This will be canceled if she does not wish to proceed.
[2022-12-08] MEDS ORDERED: bisacodyL 10 MG SUPP RECTAL STA (11:21)
--- NOTE | 2022-12-08 11:50 | P.PN ---
Subjective Progress Note Date: 12/08/22 Patient has noted complaints today. Says he has not had a bowel movement since arrival.. She says her pain has improved, no longer nauseous. Does not wish to proceed with EGD tomorrow. Gen: awake, alert HEENT: normocephalic, atraumatic, good hearing acuity, moist mucous membranes Resp: good air exchange, breathing comfortably with no accessory muscle use CVS: good distal perfusion x 4, GI: soft, NTTP, ND : no SPT, no CVAT, cardona catheter not present MSK: no pitting edema, no clubbing Neuro: non-focal, moving all extremities Psych: cooperative, euthymic mood Hospital course: 82-year-old woman with medical history of hypertension, CAD status post PCI, hypertension, hypothyroidism, permanent atrial fibrillation, rate controlled, hiatal hernia presented with sudden worsening of abdominal pain. In the emergency room, patient was afebrile, 219/72, heart rate 52, 99% on room air. CBC was unremarkable. Chemistries showed hyponatremia to 136, BUN is 22, creatinine is 0.8. Liver function tests are unremarkable. Troponins less than 0.012. Amylase is 102. Lipase is 183. UA shows 1+ ketones, moderate leukocyte esterase, 14 white blood cells, rare bacteria, 3 hyaline casts. Coags are unremarkable. Abdomen/pelvis CT shows numerous hepatic cysts, hepatomegaly, intrathoracic stomach, colonic diverticulosis without diverticulitis. EKG shows sinus bradycardia with peaked T waves, LVH with early repolarization changes, no ischemic changes. Case was discussed with the emergency room physician and decision was made to admit the patient for observation with consultation to surgery for consideration of EGD. Surgeries recommendations were to proceed with EGD, however, patient symptoms had resolved and she declined to proceed. Assessment: Abdominal pain Hiatal hernia with intrathoracic stomach Hypertensive urgency Hypothyroidism CAD Polycystic hepatic syndrome Plan: No CBC, chemistries to review today Case was discussed with nursing, patient has hesitancy to proceed with EGD, case was also discussed with patient's daughter who is at bedside, patient is been having some memory issues which are worse since hospitalization. Patient reports not having had a bowel movement since admission. Patient reports good appetite. Patient's blood pressures have been reviewed, improved to 151/51, heart rates remained between 48-54. See hospital course above for my independent review and interpretation of EKG See hospital course above for my review of abdomen/pelvis CT note Ordered bisacodyl suppository today Nothing by mouth at midnight for possible EGD tomorrow should patient change her mind Hold parameters added for nadolol, to be held for heart rate less than 55 Patient is no code DVT prophylaxis with heparin 5000 units subcu 3 times a day Objective - Vital Signs Vital signs: Vital Signs Temp 97.8 F 12/08/22 07:37 Pulse 48 L 12/08/22 07:37 Resp 17 12/08/22 07:37 BP 151/51 12/08/22 07:37 Pulse Ox 98 12/08/22 07:37 FiO2 Intake & Output 12/07/22 12/08/22 12/08/22 18:59 06:59 18:59 Other: Voiding Method Toilet # Voids 3 - Labs CBC & Chem 7: 12/07/22 00:24 12/07/22 00:24 Labs: Microbiology - Last 24 Hours (Table) 12/07/22 00:24 Urine Culture - Final Urine,Voided
[2022-12-09] MEDS: HEPARIN SODIUM,PORCINE/PF 5,000 UNIT/0.5 ML SYRINGE SQ SCH ×3 (00:05→15:43)
[2022-12-09 02:10] VITALS: TEMP 98.3
[2022-12-09] MEDS: PANTOPRAZOLE 40 MG TABLET PO SCH (06:36)
[2022-12-09] MEDS: LEVOTHYROXINE 100 MCG TAB PO SCH (06:36)
[2022-12-09 08:56] LABS: Basophils # (A) 0.02 X 10*3/uL (0.00-0.10); Basophils % (A) 0.4 %; Eosinophils # (A) 0.22 X 10*3/uL (0.04-0.35); Eosinophils % (A) 4.7 %; HCT 30.3 % (37.2-46.3); HGB 9.6 g/dL (12.0-15.0); Immature Grans, Automated 0.4 %; Lymphocytes # (A) 1.69 X 10*3/uL (0.90-5.00); Lymphocytes % (A) 36.2 %; MCH 29.3 pg (27.0-32.0); MCHC 31.7 g/dL (32.0-37.0); MCV 92.4 fL (80.0-97.0); Mean Platelet Volume 12.7 fL (9.5-12.2); Monocytes # (A) 0.48 X 10*3/uL (0.20-1.00); Monocytes % (A) 10.3 %; NRBC Per 100 WBC 0 /100 WBCS (0.0-0.0); Neutrophils # (A) 2.24 X 10*3/uL (1.80-7.70); Platelet Count 155 X 10*3/uL (140-440); RBC 3.28 X 10*6/uL (4.10-5.20); RDW 14.6 % (11.5-14.5); WBC 4.67 X 10*3/uL (4.50-10.00)
[2022-12-09 09:15] LABS: African American GFR (CKD) 69.5 (60.0-200.0); Anion Gap 8.4 mmol/L (10.00-18.00); BUN/Creat Ratio 16.22 Ratio (12.00-20.00); Blood Urea Nitrogen 14.6 mg/dL (9.0-27.0); Calcium 8.1 mg/dL (8.7-10.3); Carbon Dioxide 21.6 mmol/L (20.0-27.5); Magnesium 1.9 mg/dL (1.5-2.4)
[2022-12-09 13:11] VITALS: BP 180/72; PULSE 50
[2022-12-09] MEDS: lisinopriL 20 MG TAB PO SCH (13:11)
[2022-12-09] MEDS: ATORVASTATIN 40 MG TAB PO SCH (13:11)
--- NOTE | 2022-12-09 17:43 | P.DS ---
Providers Date of admission: 12/07/22 02:43 Expected date of discharge: 12/09/22 Attending physician: Brian Olmedo MD Consults: 12/07/22 02:23 Consult Physician Routine Consulting Provider: Abdiel Mo Consult Reason/Comments: large hiatal hernia and intrathoracic stomach Do you want consulting provider notified?: Already Contacted Primary care physician: Clint Brown MD Hospital Course: Assessment: Abdominal pain Hiatal hernia with intrathoracic stomach Hypertensive urgency Hypothyroidism CAD Polycystic hepatic syndrome Hospital course: 82-year-old woman with medical history of hypertension, CAD status post PCI, hypertension, hypothyroidism, permanent atrial fibrillation, rate controlled, hiatal hernia presented with sudden worsening of abdominal pain. In the emergency room, patient was afebrile, 219/72, heart rate 52, 99% on room air. CBC was unremarkable. Chemistries showed hyponatremia to 136, BUN is 22, creatinine is 0.8. Liver function tests are unremarkable. Troponins less than 0.012. Amylase is 102. Lipase is 183. UA shows 1+ ketones, moderate leukocyte esterase, 14 white blood cells, rare bacteria, 3 hyaline casts. Coags are unremarkable. Abdomen/pelvis CT shows numerous hepatic cysts, hepatomegaly, intrathoracic stomach, colonic diverticulosis without diverticulitis. EKG shows sinus bradycardia with peaked T waves, LVH with early repolarization changes, no ischemic changes. Case was discussed with the emergency room physician and decision was made to admit the patient for observation with consultation to surgery for consideration of EGD. Surgeries recommendations were to proceed with EGD, however, patient symptoms had resolved and she declined to proceed. Patient was ultimately discharged home with primary care physician follow-up, and she was also referred to outpatient surgery for further evaluation of hiatal hernia with intrathoracic stomach. Patient was noted be intermittently bradycardic during hospitalization, her nadolol was decreased to 20 mg daily. She was also started on PPI daily. I spent 35 minutes corrugating this discharge on 12/09 Gen: awake, alert HEENT: normocephalic, atraumatic, good hearing acuity, moist mucous membranes Resp: good air exchange, breathing comfortably with no accessory muscle use CVS: good distal perfusion x 4, GI: soft, NTTP, ND : no SPT, no CVAT, cardona catheter not present MSK: no pitting edema, no clubbing Neuro: non-focal, moving all extremities Psych: cooperative, euthymic mood Patient Condition at Discharge: Good Plan - Discharge Summary Discharge Rx Participant: Yes New Discharge Prescriptions: New Pantoprazole [Protonix] 40 mg PO AC-BRKFST #30 tab Continue Furosemide [Lasix] 20 mg PO DAILY Enalapril [Vasotec] 20 mg PO DAILY Levothyroxine Sodium 100 mcg PO DAILY Estradiol Cream [Estrace Cream 0.01%] 1 gm VAGINAL HS Changed Atorvastatin Calcium [Lipitor] 40 mg PO HS #0 nadoloL [Corgard] 20 mg PO DAILY #0 Discharge Medication List Enalapril [Vasotec] 20 mg PO DAILY 08/02/19 [History] Furosemide [Lasix] 20 mg PO DAILY 08/02/19 [History] Levothyroxine Sodium 100 mcg PO DAILY 08/02/19 [History] Estradiol Cream [Estrace Cream 0.01%] 1 gm VAGINAL HS 12/07/22 [History] Atorvastatin Calcium [Lipitor] 40 mg PO HS #0 12/09/22 [Rx] Pantoprazole [Protonix] 40 mg PO AC-BRKFST #30 tab 12/09/22 [Rx] nadoloL [Corgard] 20 mg PO DAILY #0 12/09/22 [Rx] Follow up Appointment(s)/Referral(s): Clint Brown MD [Primary Care Provider] - 01/23/23 3:00 pm Gwendolyn Anders DO [Doctor of Osteopathic Medicine] - 12/23/22 11:30 am (for follow up of hiatal hernia) Patient Instructions/Handouts: Pantoprazole (By mouth), Hiatal Hernia (DC), How to Take a Pulse (GEN) Activity/Diet/Wound Care/Special Instructions: Please note the changes to medication dosing - atorvastatin (lipitor) should be taken at night time for maximum effectiveness. Nadolol was cut in half for dosing from 40mg daily to 20mg daily, you can cut your existing tablets in half. Please check heart rate prior to taking this medication, and only take it when the heart rate is greater than or equal to 55 beats/minute. Please follow up with your primary care doctor and Dr. Anders as seen in the appointment section of these discharge instructions. Discharge Disposition: HOME SELF-CARE
== END 2022-12-09 15:55 | disposition home or self-care (01) ==
LOC: EC 23:46 → INTOOBSV 12-07 02:43 → 4SSUR 12-07 02:43 → UNDODISIN 12-09 15:55
PROVIDERS: ADMIT Internal Medicine; ATTEND Internal Medicine
DX: K44.9 Diaphragmatic hernia without obstruction or gangrene (principal); N39.0 Urinary tract infection, site not specified; R00.1 Bradycardia, unspecified; K57.32 Diverticulitis of large intestine without perforation or abscess without bleeding; K76.89 Other specified diseases of liver; K21.9 Gastro-esophageal reflux disease without esophagitis; I16.0 Hypertensive urgency; I10 Essential (primary) hypertension; I25.10 Atherosclerotic heart disease of native coronary artery without angina pectoris; F41.9 Anxiety disorder, unspecified; F32.A Depression, unspecified; M17.0 Bilateral primary osteoarthritis of knee; I70.0 Atherosclerosis of aorta; J98.11 Atelectasis; E03.9 Hypothyroidism, unspecified; Q44.6 Cystic disease of liver; I48.21 Permanent atrial fibrillation; E87.1 Hypo-osmolality and hyponatremia; Z79.82 Long term (current) use of aspirin; Z79.899 Other long term (current) drug therapy; Z88.2 Allergy status to sulfonamides; Z88.5 Allergy status to narcotic agent; Z88.1 Allergy status to other antibiotic agents; Z90.49 Acquired absence of other specified parts of digestive tract; Z90.710 Acquired absence of both cervix and uterus; Z98.42 Cataract extraction status, left eye; Z98.41 Cataract extraction status, right eye; Z80.0 Family history of malignant neoplasm of digestive organs
CPT/HCPCS: 96361 ×2; 96372 ×3; 96375 ×2; 96376; 96374; 99285; 36415; 93005; 80053; 80048; 82150; 83605; 83690; 83735; 84484; 85025 ×2; 85610; 85730; 81001; 87086; 74177; G0378 ×3; J2405; J3010; J1170; Q9967; J1644 ×3

== ENCOUNTER → 2023-05-01 | Outpatient (CLI) | payer MEDICARE ==
[2023-05-01 15:34] LABS: HCT 37.6 % (37.2-46.3); HGB 12.3 d/dL (12.0-15.0); MCH 29.5 pg (27.0-32.0); MCHC 32.7 d/dL (32.0-37.0); MCV 90.2 FL (80.0-97.0); Mean Platelet Volume 11.7 FL (9.5-12.2); NRBC Per 100 WBC 0 X 10*3/uL (0.00-0.01); Platelet Count 220 X 10*3/uL (140-440); RBC 4.17 X 10*6/uL (4.10-5.20); RDW 14.3 % (11.5-14.5); WBC 5.09 X 10*3/uL (4.50-10.00)
[2023-05-01 15:55] LABS: Chloride 101 mmol/L (96-109); Potassium 4.8 mmol/L (3.5-5.5); Sodium 138 mmol/L (135-145)
== END | disposition home or self-care (01) ==
LOC: LABPAT 10:23
PROVIDERS: ATTEND Internal Medicine Interventional Cardiology
DX: Z01.812 Encounter for preprocedural laboratory examination (principal); I25.10 Atherosclerotic heart disease of native coronary artery without angina pectoris
CPT/HCPCS: 80051; 82565; 84520; 85027

== ENCOUNTER → 2023-05-15 | Day surgery (SDC) | payer MEDICARE ==
[2023-05-12 10:56] VITALS: BMI 26.4
[~2023-05-15] MED LIST changes: +ALPRAZolam 0.25 MG TAB PO PRN; +ALPRAZolam 0.5 MG TAB PO ONE; +ALPRAZolam 0.5 MG TAB PO PRN; +ASPIRIN 325 MG TAB PO STA; +ATORVASTATIN 80 MG TAB PO STA; +ENALAPRILAT 1.25 MG/ML 1 ML VIAL IV ONE; +ENALAPRILAT 1.25 MG/ML 1 ML VIAL ONE; +HEPARIN SODIUM 1,000 UN/ML (10ML VL) IV ONE; +HEPARIN SODIUM 1,000 UN/ML (10ML VL) ONE; +HEPARIN SODIUM,PORCINE 10,000 UNIT in SODIUM CHLORIDE 0.9% 1,000 ML IRRIGATION PRN; +HEPARIN SODIUM,PORCINE 2,500 UNIT in SODIUM CHLORIDE 0.9% 250 ML IRRIGATION PRN; +IOPAMIDOL-370 100ML BTL INJ ONE; +IV FLUID CONTINUATION 1,000 ML IV ONE; -LACTATED RINGERS 1,000 ML IV SCH; -LIDOCAINE 1% (10MG/ML) FOR IV START INTRADERMA PRN; +LIDOCAINE 1% INJ 10MG/ML (5 ML VIAL-PF) SQ ONE; +MIDAZOLAM 2 MG/2 ML VIAL IVP ONE; +NITROGLYCERIN SL TABS 0.4 MG TAB SUBLINGUAL PRN; -ONDANSETRON 4 MG/2 ML VIAL IVP ONE; -Pre Op ABX Message 1 EACH MISC MISCELLANE ONE; +RX INFO: IV CONTRAST WAS GIVEN 1 EACH MISC MISCELLANE PRN; +SODIUM CHLORIDE 0.9% 1,000 ML IV SCH; +SODIUM CHLORIDE 0.9% 1,000 ML in EMPTY BAG 1 BAG IV ONE; +VERAPAMIL 2.5 MG/ML 2 ML AMP ONE; +VERAPAMIL SYRINGE (5 MG/10 ML) INTRAARTER ONE
[2023-05-15 06:57] VITALS: RESP 16; TEMP 98.2
--- NOTE | 2023-05-15 08:17 | P.PCN ---
Date of Procedure: 05/15/23 Operative Findings: CARDIAC CATHETERIZATION PERFORMING PHYSICIAN: Rosalino Franco MD, RPVI PROCEDURE PERFORMED: 1. Selective right and left coronary angiogram 2. Left heart catheterization INDICATION: Chest discomfort and abnormal myocardial perfusion imaging stress test COMPLICATION: None APPROACH: Right radial artery LEVEL OF SEDATION: Moderate with a sedation length of 10 minutes PROCEDURE DESCRIPTION: After obtaining an informed consent, the patient was brought to cardiac clinical laboratory aide. Local anesthesia was performed using lidocaine subcutaneously. The right radial artery was cannulated using Seldinger technique, the guidewire passed easily, following that we advanced a 5-[place] sheath dilator assembly, the wire and dilator were removed and sheath was flushed. Following that, 2 mg of verapamil along with 5000 unit heparin were given. Selective right and left coronary angiogram using a 6-[place] JR4 and JL 3.5 catheters. Following that we did left heart catheterization using 6-[place] pigtail catheter. The procedure was completed there was no complication. SELECTIVE CORONARY ANGIOGRAM: The right coronary artery: Large-caliber vessel and a dominant vessel. The RCA stented in the midportion. After that is tortuous was mild disease only Left main: Is normal. The left circumflex: Large caliber vessel nondominant vessel appears to have mild disease only and gives rises into OM1 underwent 2 and both appeared to be angiographically normal The left anterior descending artery: Large-caliber vessel. Proximally appears to be normal. In the midportion appears to have mild disease only. Gives rises into the first and second diagonals was appeared to be angiographically normal HEMODYNAMICS: LVEDP was 6 mmHg was no significant gradient across aortic valve CONCLUSION: 1. Patent stent in the mid RCA. Tortuous mid RCA distal to the stented segment was mild disease only 2. Normal left-sided filling pressure POSTPROCEDURE MANAGEMENT: Medical treatment
[2023-05-15 14:18] VITALS: BP 129/68; PULSE 40
== END ==
LOC: CATHCVL 05:40
PROVIDERS: ATTEND Internal Medicine Interventional Cardiology
DX: I25.10 Atherosclerotic heart disease of native coronary artery without angina pectoris (principal); I10 Essential (primary) hypertension; E78.5 Hyperlipidemia, unspecified; Z86.59 Personal history of other mental and behavioral disorders; Z95.5 Presence of coronary angioplasty implant and graft; Z79.899 Other long term (current) drug therapy
CPT/HCPCS: 93458; C1769 ×2; C1894; J2250; J2001; J1644; Q9967

== ENCOUNTER → 2023-07-07 | Outpatient (CLI) | payer MEDICARE ==
[2023-07-07 10:41] LABS: African American GFR (CKD) 82 (>60 ml/min/1.73 sqM); Blood Urea Nitrogen 14 mg/dL (7-17); Non-African American GFR(CKD) 71 (>60 ml/min/1.73 sqM)
--- NOTE | 2023-07-07 11:16 | CT ---
EXAMINATION TYPE: CT brain wo/w con DATE OF EXAM: 07/07/2023 COMPARISON: HISTORY: Changes in memory. CT DLP: 2180.8mGycm CONTRAST: CT scan of the head is performed without and with IV Contrast, patient injected with 100ml mL of Isov ue 300. Unenhanced followed by contrast enhanced CT of the brain is submitted for evaluation. The ventricles are midline. There is no evidence for intracranial hemorrhage or extra-axial collection. No mass e ffects are identified. Visualized bony calvarium is intact. Contrast is administered and no enhanci ng lesions are detected. No pathologic enhancement is identified. If symptoms persist consider MRI. IMPRESSION: Age-related atrophic and chronic small vessel ischemic change. No acute intracranial proc ess or enhancing lesion seen.
== END | disposition home or self-care (01) ==
LOC: RADCTMAIN 09:50
PROVIDERS: ATTEND Family Medicine
DX: I67.82 Cerebral ischemia (principal); R41.3 Other amnesia; G31.1 Senile degeneration of brain, not elsewhere classified
CPT/HCPCS: 82565; 84520; 70470; 36415; Q9967

== ENCOUNTER → 2023-09-04 | Outpatient (CLI) | payer MEDICARE | END | disposition home or self-care (01) | LOC: LABWHC1 10:21 | PROVIDERS: ATTEND Family Medicine | DX: E03.9 Hypothyroidism, unspecified (principal) | CPT/HCPCS: 36415; 84443 ==

== ENCOUNTER → 2023-12-31 | Outpatient (CLI) | payer MEDICARE ==
[2023-12-31 17:38] LABS: BUN/Creat Ratio 23.33 Ratio (12.00-20.00); Chloride 104 mmol/L (96-109); Glucose 122 mg/dL (70-110); Potassium 4.7 mmol/L (3.5-5.5); Sodium 138 mmol/L (135-145)
[2023-12-31 17:39] LABS: Calcium 9.8 mg/dL (8.7-10.3)
== END | disposition home or self-care (01) ==
LOC: LABWHC1 13:18
PROVIDERS: ATTEND Psychiatry & Neurology Neurology
DX: E87.1 Hypo-osmolality and hyponatremia (principal)
CPT/HCPCS: 36415; 80048; 82306; 82607; 83930; 84207

== ENCOUNTER → 2024-01-22 | Outpatient (CLI) | payer MEDICARE ==
--- NOTE | 2024-01-22 16:36 | MR ---
EXAMINATION TYPE: MR brain wo con DATE OF EXAM: 01/22/2024 COMPARISON: CT brain 07/07/2023 HISTORY: AMS. CONTRAST: Performed utilizing mL intravenous gadolinium contrast. TECHNIQUE: Multiplanar, multiecho imaging on a 3.0 Tamiko magnet is performed through the brain. Stud y is performed within 24 hours of arrival to the hospital. The craniovertebral junction is normal. The pituitary is normal. Diffusion-weighted imaging is performed. No abnormal hyperintensity is present to suggest an acute i ntracranial infarct or acute ischemic change. There are scattered punctate areas of hyperintensity on T2 and Inversion Recovery weighted sequences which are non-specific but can be related to microvascular ischemic changes. Ventricles and sulci are appropriate for the patient age. Mucosal thickening is within the bilateral maxillary sinuses. Small retention cysts within the anteri or left maxillary sinus. Minimal mucosal thickening is diffusely through the ethmoid air cells. Sphen oid sinuses clear. Frontal sinuses are clear. IMPRESSION: 1. Chronic appearing periventricular white matter ischemic-type changes.
== END | disposition home or self-care (01) ==
LOC: RADMRIMAIN 14:38
PROVIDERS: ATTEND Psychiatry & Neurology Neurology
DX: G93.89 Other specified disorders of brain (principal); I67.82 Cerebral ischemia; R41.82 Altered mental status, unspecified
CPT/HCPCS: 70551

== ENCOUNTER → 2024-05-03 | Outpatient (CLI) | payer MEDICARE ==
[2024-05-03 19:50] LABS: Microalbumin Creatinine Ratio <56 mg/g Cr (0-30); Urine Creatinine 21.3 mg/dL (28.0-217.0)
[2024-05-04 03:11] LABS: Blood Urea Nitrogen 22.8 mg/dL (9.0-27.0)
== END | disposition home or self-care (01) ==
LOC: LABWHC1 16:12
PROVIDERS: ATTEND Family Medicine
DX: E11.9 Type 2 diabetes mellitus without complications (principal); E03.9 Hypothyroidism, unspecified
CPT/HCPCS: 36415; 82043; 82565; 82570; 84443; 84520

== ENCOUNTER 2025-01-28 12:43 | Inpatient (IN) | payer MEDICARE ==
[2025-01-28 12:56] LABS: Glucose,Whole Blood 144 mg/dL (70-110)
--- NOTE | 2025-01-28 12:59 | ED ---
General Adult HPI - General Stated complaint: unresponsive Time Seen by Provider: 01/28/25 12:46 Source: EMS Mode of arrival: EMS Limitations: altered mental status - History of Present Illness Initial comments: Patient is an 85-year-old female with unknown past medical history presenting today for altered mental status. Patient presents presents from [facility]. She last known well was 10:30 PM last night. Was found just prior to arrival on the ground with a left gaze and right sided weakness. She was noted to have seizure-like activity on her right side as well and so given was 2.5 mg Versed by EMS. After that patient had snoring respirations and a GCS of 3. She is not on blood thinners. Blood glucose prior to arrival was 150. Reportedly patient had "a very high blood pressure" prior to arrival. - Related Data Home Medications Medication Instructions Recorded Confirmed Enalapril [Vasotec] 20 mg PO BID@08,199908/02/19 01/28/25 Furosemide [Lasix] 20 mg PO DAILY@79908/02/19 01/28/25 Levothyroxine Sodium 100 mcg PO MOTUWETHFRSA@79908/02/19 01/28/25 Aspirin 81 mg PO DAILY@79905/12/23 01/28/25 Acetaminophen Tab [Tylenol] 650 mg PO Q4H PRN 01/28/25 01/28/25 Atorvastatin [Lipitor] 40 mg PO HS@199901/28/25 01/28/25 Fluticasone Nasal [place] [Flonase 1 spray EA NOSTRIL BID@01/28/2501/18 Nasal [place]] Hydrocortisone Oint 1 applic TOPICAL BID@01/28/25 01/28/25 [Hydrocortisone 2.5% Oint] I-Myranda Lutein Tab-Healthy Eyes 1 tab PO DAILY PRN 01/28/25 01/28/25 Levothyroxine Sodium 50 mcg PO HOWARD@79901/28/25 01/28/25 Sertraline [Zoloft] 50 mg PO DAILY@79901/28/25 01/28/25 amLODIPine [Norvasc] 5 mg PO DAILY@79901/28/25 01/28/25 nadoloL [Corgard] 20 mg PO DAILY@79901/28/2525 Allergies Allergy/AdvReac Type Severity Reaction Status Date / Time amoxicillin [From Prevpac] Allergy Unknown Rash/Hives Verified 01/28/25 14:41 clarithromycin [From Prevpac] Allergy Unknown Rash/Hives Verified 01/28/25 14:41 hydrocodone [From Lortab] Allergy Unknown RED FACE Verified 01/28/25 14:41 AND SKIN YELLOW lansoprazole [From Prevpac] Allergy Unknown Rash/Hives Verified 01/28/25 14:41 morphine Allergy Unknown Nausea & Verified 01/28/25 14:41 Vomiting Sulfa (Sulfonamide Allergy Unknown Unknown Verified 01/28/25 14:41 Antibiotics) NSAIDS (Non-Steroidal AdvReac Vomiting Verified 01/28/25 14:41 Anti-Inflamma Review of Systems ROS Statement: Those systems with pertinent positive or pertinent negative responses have been documented in the HPI. 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 hx palpitations, SOB, "calcificaton in veins in heart", abdominal pain and bloating, diet contol "pre diabetic", urinary leakage, alopecia, History of Any Multi-Drug Resistant Organisms: None Reported Past Surgical History: Heart Catheterization With Stent, Hysterectomy Additional Past Surgical History / Comment(s): CHRISSY CATARACTS, BLADDER SUSPENSION, Past Anesthesia/Blood Transfusion Reactions: No Reported Reaction Additional Past Anesthesia/Blood Transfusion Reaction / Comment(s): DIFF IV STARTS Past Psychological History: Anxiety, Depression Smoking Status: Unknown if ever smoked Past Alcohol Use History: Rare Past Drug Use History: Unable to Obtain - Past Family History Mother Family Medical History: Cancer Additional Family Medical History / Comment(s): PANCREATIC CANCER General Exam - General Exam Comments Initial Comments: PE: CONSTITUTIONAL: no apparent distress, ill-appearing, minimally responsive SKIN: Warm, dry, no jaundice, hives or petechiae EYES: Pupils are equally round, appears to have left gaze deviation though intermittent roving eye movements without nystagmus, pupils are 3mm reactive HENT: Normocephalic, atraumatic, moist mucus membranes, oropharynx clear without exudates NECK: , Full range of motion, normal appearance PULMONARY: Clear to auscultation without wheezes, rhonchi, or rales, normal excursion, no accessory muscle use and no stridor CARDIOVASCULAR: Regular rate, rhythm, normal S1 and S2. No appreciated murmurs, rubs or gallops. Strong radial pulses with intact distal perfusion. No lower extremity edema GASTROINTESTINAL: Soft, active bowel sounds throughout, non-tender, non- distended, no palpable masses, no rebound or guarding. No hepatosplenomegaly MUSCULOSKELETAL: Extremities have no gross deformity, no edema, redness, or swelling or signs of injury. No calf swelling NEUROLOGIC:_a/o x 0 GCS 3, exam is limited due to patient's unresponsiveness, no verbal response to painful stimuli, patient does not withdraw extremities to painful stimuli PSYCHIATRIC: Unable to assess 2/2 above Limitations: altered mental status Course Vital Signs 01/28/25 01/28/25 01/28/25 12:45 13:09 14:08 Temperature 97.5 F L 97.6 F Pulse Rate 57 L 57 L 65 Respiratory 18 18 18 Rate Blood Pressure 152/70 185/63 205/75 O2 Sat by Pulse 99 99 97 Oximetry 01/28/25 01/28/25 01/28/25 14:09 15:00 15:30 Temperature 97.6 F Pulse Rate 57 L 66 62 Respiratory 18 16 16 Rate Blood Pressure 185/63 189/72 180/81 O2 Sat by Pulse 99 99 99 Oximetry 01/28/25 01/28/25 01/28/25 16:00 16:30 18:16 Temperature 99.1 F Pulse Rate 67 57 L 67 Respiratory 16 18 20 Rate Blood Pressure 187/74 176/69 151/66 O2 Sat by Pulse 98 98 98 Oximetry 01/28/25 01/28/25 01/29/25 19:03 22:30 05:00 Temperature Pulse Rate 64 72 60 Respiratory 18 18 18 Rate Blood Pressure 144/68 99/57 150/59 O2 Sat by Pulse 96 96 93 L Oximetry 01/29/25 09:33 Temperature Pulse Rate 58 L Respiratory 18 Rate Blood Pressure 141/58 O2 Sat by Pulse 96 Oximetry EKG Findings - EKG Comments: EKG Findings:: EKG shows sinus rhythm, rate 60 bpm NC interval 206 ms, QT/QTc 428/429 ms, normal axis, no ST elevations or depressions no arrhythmia, no STEMI Medical Decision Making - Medical Decision Making Was pt. sent in by a medical professional or institution ([facility]UEL James, [employer], urgent care, hospital, or [facility]...) When possible be specific @ -No Did you speak to anyone other than the patient for history (EMS, parent, family, police, friend...)? What history was obtained from this source @ -Spoke to EMS, state they patient's last known normal 10:30 PM last night, gave her 2.5 mg Versed for right sided seizure-like activity that has since resolved Did you review nursing and triage notes (agree or disagree)? Why? @ -I reviewed nursing and triage notes- disagree, pt was found minimally responsive in her bed this morning, LKW was 10:30 PM last night, GCS 3 was given after receiving versed for seizure like activity, pt reportedly found with left gaze deviation and right sided weakness Were old charts reviewed (outside hosp., previous admission, EMS record, old EKG, old radiological studies, urgent care reports/EKG's, [facility] records)? Report findings @ -Medical records reviewed- reviewed paperwork sent with patient from [facility], patient does not appear to be on any blood thinners Differential Diagnosis (chest pain, altered mental status, abdominal pain women, abdominal pain men, vaginal bleeding, weakness, fever, dyspnea, syncope, headache, dizziness, GI bleed, back pain, seizure, CVA, palpatations, mental health, musculoskeletal)? @Differential Altered Mental Status: Hypoglycemia, DKA, hypercapnia, ETOH, overdose, trauma, myxedema coma, HTN encephalopathy, infection, encephalitis, psychosis, intercranial hemorrhage, hepatic encephalopathy, meningitis, CVA, this is not meant to be an all- inclusive list Differential CVA Ischemic stroke, hemorrhagic stroke, brain tumor, atypical migraine, Wernicke's encephalopathy, seizure, multiple sclerosis, meningitis, encephalitis, hypoglycemia, Guillain-Lewis, electrolytes disturbance, myasthenia gravis.... This is not meant to be an all-inclusive list EKG interpreted by me (3pts min.). @ -As above X-rays interpreted by me (1pt min.). @ Personally reviewed CXR, appears to have few rib fractures on left side anterior ribs, no pneumothorax, perihilar fullness, possible left pleural effusion, Radiologist read as no acute osseous pathology, rib fractures potentially old, notes perihilar fullness potentially due to patient positioning, otherwise agree with radiologist interpretation CT interpreted by me (1pt min.). Reviewed CT brain I see no evidence of hemorrhage or mass effect, reviewed CTA see no evidence of dissection or large vessel occlusion, I agree with radiologist interpretation U/S interpreted by me (1pt. min.). @ -None done What testing was considered but not performed or refused? (CT, X-rays, U/S, labs)? Why? @ -None What meds were considered but not given or refused? Why? @ -None Did you discuss the management of the patient with other professionals (professionals i.e. , PA, WORK TICKET DISTRIBUTOR, lab, RT, psych nurse, social scientist, maternal fetal physician, teacher, anti air warfare operations officer, case supervisor)? Give summary @Was discussed with Dr. Torres, neurointerventionist, out of [facility], patient is not a tNK candidate, as LKW >4.5 hours ago, will follow imaging patient may potentially be a thrombectomy candidate if LVO, however would discuss with patient's family patient's goals of care, before proceeding with intervention. Prior to final read of CTA, I did discuss this possibility with patient's son and daughter who stated patient would not want that type of inter vention/aggressive measures if offered. CTA ultimately read as negative for evidence of occlusion. I did call Dr. Torres back after completion of imaging due to patient's improving, though still altered, mentation. He will review imaging and call back after completion of the case he was currently working on. Was smoking cessation discussed for >3mins.? @ -No Was critical care preformed (if so, how long)? Yes 45 minutes Were there social determinants of health that impacted care today? How? (Ho melessness, low income, unemployed, alcoholism, drug addiction, transportation, low edu. Level, literacy, decrease access to med. care, residential, rehab)? @ -No Was there de-escalation of care discussed even if they declined (Discuss DNR or withdrawal of care, Hospice)? Comfort care/hospice was discussed with patient's daughter daughter and son however as there is no conclusive reason for altered mental status at this point patient will remain DNR/DNI until further investigation can be done What co-morbidities impacted this encounter? (DM, HTN, Smoking, COPD, CAD, Cancer, CVA, ARF, Chemo, Hep., AIDS, mental health diagnosis, sleep apnea, morbid obesity)? Hypertension, Alzheimer's Was patient admitted / discharged? Hospital course, mention meds given and route, prescriptions, significant lab abnormalities, going to OR and other pertinent info. @Admission- Patient is an 85-year-old female presenting from [facility] due to altered mental status. Last known well 10:30 PM last night. Reportedly had left gaze preference with right-sided weakness on EMS arrival with seizure- like activity. Received 2.5 mg Versed prior to arrival and then became minimally responsive. On arrival patient has a GCS of 3, left gaze deviation with roving eye movements. She is protecting her airway however with a pulse ox of 99% on room air, respirations are unlabored, normal rate and rhythm on cardia c exam. Patient is not a tenecteplase candidate however a stroke alert was called as patient w/in 24 hours LKN. Patient was reported to have very high blood pressure prior to arrival, though exact number was not recorded, so I am concerned for hemorrhagic CVA. Please see note above regarding discussion with neurointerventionalist. Imaging was negative for acute intracranial process. On reassessment patient responding to voice when her name is stated and answers with "yes", though does not answer additional questions, eye closed, eye movements remain the same, now withdraws from painful stimuli in all 4 extremities. Patient's son and daughter at bedside, updated them to patient's status and findings thus far. Prior to CTA resulting I did discuss with them the patient's wishes regarding goals of care and the extent to which she would want aggressive interventions/interventions such as thrombectomy if offered, and they stated she would not. She is currently a DNR. They added additional hx, stating she has had progressively working alzheimers, so was transitioned to [facility] earlier this week. Is able to identify her son and daughter at baseline. Patient's workup otherwise significant for hyponatremia with Na 125. Though this could contribute to pt's AMS, I do not think with Na at this level that it precipitated seizure. 500 NS bolus ordered. Patient's BP did increase to 195 systolic. As it is unclear if hypertension contributed to pt's altered mentation, as she was noted to have elevated BP when evaluated and found seizing at [facility], ordered 10 mg IV labetolol to maintain SBP between 180-220. Will allow for some permissive hypertension in case pt's altered mentation is 2/2 CVA. Discussed with patient's son and daughter findings and plan for admission for EEG/MRI/ further monitoring and workup as to what has caused pt's AMS, they are agreeable with POC. Case discussed with Dr. Negrete, kindly accepts pt for admission. Drug Therapy requiring intensive monitoring for toxicity (Heparin, Nitro, Insulin, Cardizem)? @ -No Were any procedures done? @ -No Diagnosis/symptom? @ Acute encephalopathy, new onset seizure-like activity, hyponatremia Acute, or Chronic, or Acute on Chronic? @ acute Uncomplicated (without systemic symptoms) or Complicated (systemic symptoms)? @complicated Side effects of treatment? @ -No Exacerbation, Progression, or Severe Exacerbation? @ -No Poses a threat to life or bodily function? How? (Chest pain, [place], [place], pneumonia, PE, COPD, DKA, ARF, appy, cholecystitis, CVA, Diverticulitis, Homicidal, Suicidal, threat to staff... and all critical care pts) @ Yes - Lab Data Result diagrams: 01/29/25 07:28 01/29/25 07:28 Lab Results 01/28/25 01/28/25 01/28/25 Range/Units 12:54 12:55 12:55 WBC 6.67 (4.50-10.00) 10*3/uL RBC 4.31 (4.10-5.20) 10*6/uL Hgb 12.9 (12.0-15.0) g/dL Hct 36.8 L (37.2-46.3) % MCV 85.4 (80.0-97.0) fL MCH 29.9 (27.0-32.0) pg MCHC 35.1 (32.0-37.0) g/dL Plt Count 271 (140-440) 10*3/uL MPV 9.7 (9.5-12.2) fL Immature Gran % (Auto) 0.6 % Neutrophils % 74.1 % Lymphocytes % 12.0 % Monocytes % 8.4 % Eosinophils % 4.6 % Basophils % 0.3 % Immature Gran # 0.04 (0.00-0.04) 10*3/uL Neutrophils # 4.94 (1.80-7.70) 10*3/uL Lymphocytes # 0.80 L (0.90-5.00) 10*3/uL Monocytes # 0.56 (0.20-1.00) 10*3/uL Eosinophils # 0.31 (0.04-0.35) 10*3/uL Basophils # 0.02 (0.00-0.10) 10*3/uL PT (10.0-12.5) sec INR (<1.2) APTT (22.0-30.0) sec Sodium 125 L (137-145) mmol/L Potassium 4.4 (3.5-5.1) mmol/L Chloride 95 L (98-107) mmol/L Carbon Dioxide 26 (22-30) mmol/L Anion Gap 4 mmol/L BUN 12 (7-17) mg/dL Creatinine 0.56 (0.52-1.04) mg/dL Est GFR (CKD-EPI)AfAm >90 (>60 ml/min/1.73 sqM) Est GFR (CKD-EPI)NonAf 86 (>60 ml/min/1.73 sqM) Glucose 147 H (74-99) mg/dL POC Glucose (mg/dL) 144 H (70-110) mg/dL POC Glu [employer] Assembler ID Jese Zander Osmolality ([phone]) mOsm/kg Calcium 8.8 (8.4-10.2) mg/dL Total Bilirubin 1.0 (0.2-1.3) mg/dL AST 40 H (14-36) U/L ALT 48 H (4-34) U/L Alkaline Phosphatase 116 (38-126) U/L Creatine Kinase 168 H (30-135) U/L Troponin I (0.000-0.034) ng/mL Total Protein 6.7 (6.3-8.2) g/dL Albumin 3.9 (3.5-5.0) g/dL Urine Color Urine Appearance (Clear) Urine pH (5.0-8.0) Ur Specific [place] (1.001-1.035) Urine Protein (Negative) Urine Glucose (UA) (Negative) Urine Ketones (Negative) Urine Blood (Negative) Urine Nitrite (Negative) Urine Bilirubin (Negative) Urine Urobilinogen (<2.0) mg/dL Ur Leukocyte Esterase (Negative) Urine RBC (0-5) /hpf Urine WBC (0-5) /hpf Ur Squamous Epith Cells (0-4) /hpf Hyaline Casts (0-2) /lpf Urine Osmolality (400-1100) mOsm/kg Ur Random Sodium (40-220) mmol/L Urine Opiates Screen (NotDetected) Ur Oxycodone Screen (NotDetected) Urine Methadone Screen (NotDetected) Ur Barbiturates Screen (NotDetected) U Tricyclic Antidepress (NotDetected) Ur Phencyclidine Scrn (NotDetected) Ur Amphetamines Screen (NotDetected) U Methamphetamines Scrn (NotDetected) U Benzodiazepines Scrn (NotDetected) Urine Cocaine Screen (NotDetected) U Marijuana (THC) Screen (NotDetected) 01/28/25 01/28/25 01/28/25 Range/Units 12:55 12:55 13:15 WBC (4.50-10.00) 10*3/uL RBC (4.10-5.20) 10*6/uL Hgb (12.0-15.0) g/dL Hct (37.2-46.3) % MCV (80.0-97.0) fL MCH (27.0-32.0) pg MCHC (32.0-37.0) g/dL Plt Count (140-440) 10*3/uL MPV (9.5-12.2) fL Immature Gran % (Auto) % Neutrophils % % Lymphocytes % % Monocytes % % Eosinophils % % Basophils % % Immature Gran # (0.00-0.04) 10*3/uL Neutrophils # (1.80-7.70) 10*3/uL Lymphocytes # (0.90-5.00) 10*3/uL Monocytes # (0.20-1.00) 10*3/uL Eosinophils # (0.04-0.35) 10*3/uL Basophils # (0.00-0.10) 10*3/uL PT (10.0-12.5) sec INR (<1.2) APTT (22.0-30.0) sec Sodium (137-145) mmol/L Potassium (3.5-5.1) mmol/L Chloride (98-107) mmol/L Carbon Dioxide (22-30) mmol/L Anion Gap mmol/L BUN (7-17) mg/dL Creatinine (0.52-1.04) mg/dL Est GFR (CKD-EPI)AfAm (>60 ml/min/1.73 sqM) Est GFR (CKD-EPI)NonAf (>60 ml/min/1.73 sqM) Glucose (74-99) mg/dL POC Glucose (mg/dL) (70-110) mg/dL POC Glu [employer] Assembler ID Osmolality [id number] L ([id number]) mOsm/kg Calcium (8.4-10.2) mg/dL Total Bilirubin (0.2-1.3) mg/dL AST (14-36) U/L ALT (4-34) U/L Alkaline Phosphatase (38-126) U/L Creatine Kinase (30-135) U/L Troponin I <0.012 (0.000-0.034) ng/mL Total Protein (6.3-8.2) g/dL Albumin (3.5-5.0) g/dL Urine Color Colorless Urine Appearance Clear (Clear) Urine pH 7.0 (5.0-8.0) Ur Specific [place] 1.011 (1.001-1.035) Urine Protein 1+ H (Negative) Urine Glucose (UA) Negative (Negative) Urine Ketones Negative (Negative) Urine Blood Trace H (Negative) Urine Nitrite Negative (Negative) Urine Bilirubin Negative (Negative) Urine Urobilinogen <2.0 (<2.0) mg/dL Ur Leukocyte Esterase Negative (Negative) Urine RBC 11 H (0-5) /hpf Urine WBC <1 (0-5) /hpf Ur Squamous Epith Cells <1 (0-4) /hpf Hyaline Casts 1 (0-2) /lpf Urine Osmolality (400-1100) mOsm/kg Ur Random Sodium (40-220) mmol/L Urine Opiates Screen (NotDetected) Ur Oxycodone Screen (NotDetected) Urine Methadone Screen (NotDetected) Ur Barbiturates Screen (NotDetected) U Tricyclic Antidepress (NotDetected) Ur Phencyclidine Scrn (NotDetected) Ur Amphetamines Screen (NotDetected) U Methamphetamines Scrn (NotDetected) U Benzodiazepines Scrn (NotDetected) Urine Cocaine Screen (NotDetected) U Marijuana (THC) Screen (NotDetected) 01/28/25 01/28/25 01/28/25 Range/Units 13:15 13:15 13:15 WBC (4.50-10.00) 10*3/uL RBC (4.10-5.20) 10*6/uL Hgb (12.0-15.0) g/dL Hct (37.2-46.3) % MCV (80.0-97.0) fL MCH (27.0-32.0) pg MCHC (32.0-37.0) g/dL Plt Count (140-440) 10*3/uL MPV (9.5-12.2) fL Immature Gran % (Auto) % Neutrophils % % Lymphocytes % % Monocytes % % Eosinophils % % Basophils % % Immature Gran # (0.00-0.04) 10*3/uL Neutrophils # (1.80-7.70) 10*3/uL Lymphocytes # (0.90-5.00) 10*3/uL Monocytes # (0.20-1.00) 10*3/uL Eosinophils # (0.04-0.35) 10*3/uL Basophils # (0.00-0.10) 10*3/uL PT (10.0-12.5) sec INR (<1.2) APTT (22.0-30.0) sec Sodium (137-145) mmol/L Potassium (3.5-5.1) mmol/L Chloride (98-107) mmol/L Carbon Dioxide (22-30) mmol/L Anion Gap mmol/L BUN (7-17) mg/dL Creatinine (0.52-1.04) mg/dL Est GFR (CKD-EPI)AfAm (>60 ml/min/1.73 sqM) Est GFR (CKD-EPI)NonAf (>60 ml/min/1.73 sqM) Glucose (74-99) mg/dL POC Glucose (mg/dL) (70-110) mg/dL POC Glu [employer] Assembler ID Osmolality ([id number]) mOsm/kg Calcium (8.4-10.2) mg/dL Total Bilirubin (0.2-1.3) mg/dL AST (14-36) U/L ALT (4-34) U/L Alkaline Phosphatase (38-126) U/L Creatine Kinase (30-135) U/L Troponin I (0.000-0.034) ng/mL Total Protein (6.3-8.2) g/dL Albumin (3.5-5.0) g/dL Urine Color Urine Appearance (Clear) Urine pH (5.0-8.0) Ur Specific [place] (1.001-1.035) Urine Protein (Negative) Urine Glucose (UA) (Negative) Urine Ketones (Negative) Urine Blood (Negative) Urine Nitrite (Negative) Urine Bilirubin (Negative) Urine Urobilinogen (<2.0) mg/dL Ur Leukocyte Esterase (Negative) Urine RBC (0-5) /hpf Urine WBC (0-5) /hpf Ur Squamous Epith Cells (0-4) /hpf Hyaline Casts (0-2) /lpf Urine Osmolality 485 (400-1100) mOsm/kg Ur Random Sodium 178 (40-220) mmol/L Urine Opiates Screen Not Detected (NotDetected) Ur Oxycodone Screen Not Detected (NotDetected) Urine Methadone Screen Not Detected (NotDetected) Ur Barbiturates Screen Not Detected (NotDetected) U Tricyclic Antidepress Not Detected (NotDetected) Ur Phencyclidine Scrn Not Detected (NotDetected) Ur Amphetamines Screen Not Detected (NotDetected) U Methamphetamines Scrn Not Detected (NotDetected) U Benzodiazepines Scrn Not Detected (NotDetected) Urine Cocaine Screen Not Detected (NotDetected) U Marijuana (THC) Screen Not Detected (NotDetected) 01/28/25 Range/Units 13:16 WBC (4.50-10.00) 10*3/uL RBC (4.10-5.20) 10*6/uL Hgb (12.0-15.0) g/dL Hct (37.2-46.3) % MCV (80.0-97.0) fL MCH (27.0-32.0) pg MCHC (32.0-37.0) g/dL Plt Count (140-440) 10*3/uL MPV (9.5-12.2) fL Immature Gran % (Auto) % Neutrophils % % Lymphocytes % % Monocytes % % Eosinophils % % Basophils % % Immature Gran # (0.00-0.04) 10*3/uL Neutrophils # (1.80-7.70) 10*3/uL Lymphocytes # (0.90-5.00) 10*3/uL Monocytes # (0.20-1.00) 10*3/uL Eosinophils # (0.04-0.35) 10*3/uL Basophils # (0.00-0.10) 10*3/uL PT 10.9 (10.0-12.5) sec INR 1.0 (<1.2) APTT 24.7 (22.0-30.0) sec Sodium (137-145) mmol/L Potassium (3.5-5.1) mmol/L Chloride (98-107) mmol/L Carbon Dioxide (22-30) mmol/L Anion Gap mmol/L BUN (7-17) mg/dL Creatinine (0.52-1.04) mg/dL Est GFR (CKD-EPI)AfAm (>60 ml/min/1.73 sqM) Est GFR (CKD-EPI)NonAf (>60 ml/min/1.73 sqM) Glucose (74-99) mg/dL POC Glucose (mg/dL) (70-110) mg/dL POC Glu [employer] As[employer]er ID Osmolality ([id number]) mOsm/kg Calcium (8.4-10.2) mg/dL Total Bilirubin (0.2-1.3) mg/dL AST (14-36) U/L ALT (4-34) U/L Alkaline Phosphatase (38-126) U/L Creatine Kinase (30-135) U/L Troponin I (0.000-0.034) ng/mL Total Protein (6.3-8.2) g/dL Albumin (3.5-5.0) g/dL Urine Color Urine Appearance (Clear) Urine pH (5.0-8.0) Ur Specific [place] (1.001-1.035) Urine Protein (Negative) Urine Glucose (UA) (Negative) Urine Ketones (Negative) Urine Blood (Negative) Urine Nitrite (Negative) Urine Bilirubin (Negative) Urine Urobilinogen (<2.0) mg/dL Ur Leukocyte Esterase (Negative) Urine RBC (0-5) /hpf Urine WBC (0-5) /hpf Ur Squamous Epith Cells (0-4) /hpf Hyaline Casts (0-2) /lpf Urine Osmolality (400-1100) mOsm/kg Ur Random Sodium (40-220) mmol/L Urine Opiates Screen (NotDetected) Ur Oxycodone Screen (NotDetected) Urine Methadone Screen (NotDetected) Ur Barbiturates Screen (NotDetected) U Tricyclic Antidepress (NotDetected) Ur Phencyclidine Scrn (NotDetected) Ur Amphetamines Screen (NotDetected) U Methamphetamines Scrn (NotDetected) U Benzodiazepines Scrn (NotDetected) Urine Cocaine Screen (NotDetected) U Marijuana (THC) Screen (NotDetected) Disposition Clinical Impression: Acute encephalopathy, Hyponatremia Disposition: ADMITTED IP TO THIS [facility] Condition: Stable
[2025-01-28 13:17] LABS: Basophils # (A) 0.02 10*3/uL (0.00-0.10); Basophils % (A) 0.3 %; Eosinophils # (A) 0.31 10*3/uL (0.04-0.35); Eosinophils % (A) 4.6 %; HCT 36.8 % (37.2-46.3); HGB 12.9 g/dL (12.0-15.0); MCH 29.9 pg (27.0-32.0); MCHC 35.1 g/dL (32.0-37.0); MCV 85.4 fL (80.0-97.0); Mean Platelet Volume 9.7 fL (9.5-12.2); Monocytes # (A) 0.56 10*3/uL (0.20-1.00); Monocytes % (A) 8.4 %; Neutrophils # (A) 4.94 10*3/uL (1.80-7.70); Neutrophils % (A) 74.1 %; Platelet Count 271 10*3/uL (140-440); RBC 4.31 10*6/uL (4.10-5.20); RDW 14.1 % (11.5-14.5); WBC 6.67 10*3/uL (4.50-10.00)
--- NOTE | 2025-01-28 13:24 | CT ---
EXAMINATION TYPE: CODE STROKE: CT brain wo contr CT DLP: 1102.6 mGycm, Automated exposure control for dose reduction was used. DATE OF EXAM: 01/28/2025 1:13 PM COMPARISON: CT brain 07/08/2023, MRI brain 01/22/2024 CLINICAL INDICATION:Female, 85 years old with history of Neuro deficit, acute, stroke suspected, Neur o deficits, code stroke TECHNIQUE: Brain: Multiple axial CT images of the brain were obtained without IV contrast. . Coronal and sagitta l reformats reviewed. FINDINGS: Brain: Extra-axial spaces: No abnormal extra-axial fluid collections. Ventricular system: Within normal limits Cerebral parenchyma: Age-appropriate diffuse cerebral volume loss. No acute intraparenchymal hemorrha ge or mass effect. The elliott-white junction is well differentiated. Scattered hypoattenuating areas a re seen within the periventricular white matter. Cerebellum: Unremarkable. Mass effect: No evidence of midline shift. Intracranial vasculature: Atherosclerotic calcifications of the intracranial vessels. Soft tissues: Normal. Calvarium/osseous structures: No depressed skull fracture. Paranasal sinuses and mastoid air cells: Mild scattered paranasal sinus disease. Mastoid air cells ar e clear. Visualized orbits: Bilateral aphakia IMPRESSION: 1. No acute intracranial process. 2. Nonspecific white matter changes, likely secondary to chronic small vessel ischemic disease. Findings called to and discussed with Dr. Shruthi Hopkins at 1:21 PM on 01/28/2025. [facility], , 01/28/2025 1:21 PM
[2025-01-28 13:31] LABS: ALT 48 U/L (4-34); AST 40 U/L (14-36); African American GFR (CKD) >90 (>60 ml/min/1.73 sqM); Albumin 3.9 g/dL (3.5-5.0); Alkaline Phosphatase 116 U/L (38-126); Anion Gap 4 mmol/L; Blood Urea Nitrogen 12 mg/dL (7-17); Calcium 8.8 mg/dL (8.4-10.2); Carbon Dioxide 26 mmol/L (22-30); Chloride 95 mmol/L (98-107); Creatine Kinase 168 U/L (30-135); Glucose 147 mg/dL (74-99); Non-African American GFR(CKD) 86 (>60 ml/min/1.73 sqM); Potassium 4.4 mmol/L (3.5-5.1); Sodium 125 mmol/L (137-145); Total Protein 6.7 g/dL (6.3-8.2)
[2025-01-28 13:35] LABS: Appearance,Urine Clear (Clear); Bilirubin,Urine Negative (Negative); Blood,Urine Trace (Negative); Color,Urine Colorless; Glucose,Urine (UA) Negative (Negative); Hyaline Casts,Urine 1 /lpf (0-2); Ketones,Urine Negative (Negative); Leukocyte Esterase,Urine Negative (Negative); Nitrite,Urine Negative (Negative); Protein,Urine 1+ (Negative); RBC,Urine 11 /hpf (0-5); Specific Gravity,Urine 1.011 (1.001-1.035); Squamous Epithelial Cell,Urine <1 /hpf (0-4); Urobilinogen,Urine <2.0 mg/dL (<2.0); WBC,Urine <1 /hpf (0-5)
--- NOTE | 2025-01-28 13:35 | XR ---
EXAMINATION TYPE: XR chest 1V portable DATE OF EXAM: 01/28/2025 1:25 PM COMPARISON: Chest radiographs from 08/22/2014. CLINICAL INDICATION: Female, 85 years old with history of altered mental status; TECHNIQUE: XR chest 1V portable Frontal view of the chest. FINDINGS: Lungs/Pleura: There is no evidence of pleural effusion, focal consolidation, or pneumothorax. Pulmonary vascularity: Unremarkable. Heart/mediastinum: Cardiomediastinal silhouette is unremarkable. Musculoskeletal: No acute osseous pathology. IMPRESSION: Perihilar fullness bilaterally possibly due to patient positioning. Consider CT imaging for further e valuation of the perihilar regions. Large heterogenous and periosteal appreciated. Correlate for repair. [facility], , 01/28/2025 1:33 PM
--- NOTE | 2025-01-28 13:40 | CT ---
EXAMINATION TYPE: CT angio head neck CT DLP: 359 mGycm, Automated exposure control for dose reduction was used. DATE OF EXAM: 01/28/2025 1:27 PM COMPARISON: CT brain 01/28/2025, 07/07/2023, MRI brain 01/22/2024. CLINICAL INDICATION:Female, 85 years old with history of Neuro deficit, acute, stroke suspected; PHH, altered mental status TECHNIQUE: Axially acquired helical CT angiogram of the head and neck was obtained with contrast util izing 75 cc of Isovue-370 administered intravenously. Axial images are supplemented with 3D reconstru ctions which were post-processed at an independent workstation. NASCET criteria used. MIP imaging performed on a separate workstation and submitted for review. FINDINGS: CTA HEAD: No evidence of acute intracranial hemorrhage, mass effect, or midline shift. The ventricles, sulci, a nd cisterns are unremarkable. The visualized portions of the internal carotid arteries, middle cerebral arteries, anterior cerebral arteries, and posterior cerebral arteries are patent. origin of bilateral COURT TRANSCRIBER. The basilar and vertebral arteries are patent. CTA NECK: Right Carotid System: The common carotid artery and external carotid artery are patent. Moderate calcified plaque at the ca rotid bifurcation extending into the proximal internal carotid artery. No significant stenosis. The r emaining portions of the internal carotid artery demonstrate normal size without significant narrowin g. Left Carotid System: The common carotid artery and external carotid artery are patent. Mild calcified plaque at the caroti d bifurcation extending into the proximal internal carotid artery without significant stenosis. The r emaining portions of the internal carotid artery demonstrate normal size without significant narrowin g. Vertebral arteries are patent without evidence hemodynamically significant stenosis. Right vertebral artery is dominant. There is a three-vessel aortic arch. The origins of the great vessels are patent. No evidence of hemo dynamically significant stenosis. Partial visualization of left pleural effusion. Left thyroid lobe 6 mm hypodense nodule. Bilateral ma xillary sinus small mucous retention cyst. Advanced right shoulder arthropathy. Mild multilevel degen erative disc disease of the cervical spine. IMPRESSION: 1. No evidence of dissection of the cervical internal carotid arteries or vertebral arteries or any e vidence of significant stenosis at the carotid bifurcations. 2. No evidence of high-grade stenosis or intracranial aneurysm. 3. Partial visualization of left pleural effusion. [facility], , 01/28/2025 1:37 PM
[2025-01-28 13:44] LABS: Partial Thromboplastin Time 24.7 sec (22.0-30.0); Prothrombin Time 10.9 sec (10.0-12.5)
[2025-01-28] MEDS: SODIUM CHLORIDE 0.9% 500 ML 500 ML IV ONE (13:52)
[2025-01-28] MEDS: LABETALOL 5 MG/ML VIAL MDV IVP STA (14:08)
[2025-01-28] MEDS ORDERED: MAG HYDROX/AL HYDROX/SIMETH 30 ML CUP PO PRN (14:33)
[2025-01-28] MEDS ORDERED: CALCIUM CARBONATE 500 MG CHEWABLE PO PRN (14:33)
[2025-01-28] MEDS ORDERED: NALOXONE 0.4 MG/ML 1 ML VIAL IV PRN (14:33)
[2025-01-28] MEDS: ONDANSETRON 4 MG/2 ML VIAL IVP PRN (16:30)
--- NOTE | 2025-01-28 17:04 | P.HPIM ---
History of Present Illness H&P Date: 01/28/25 History of present illness; 85-year-old female with a PMH of hypertension, hyperlipidemia, CAD s/p stenting (follows with Dr. Franco), hypothyroidism, early Alzheimer's disease (follows with Dr. Marcelino), diabetes mellitus, anxiety/depression. She presents to the emergency department after being found unresponsive this morning in her bed at [facility]. Apparently, this morning she was on the phone with her children, at that time she seemed a bit agitated and confused however they were not discussed with her. They were then contacted later that morning with the report that she was found unresponsive in her room at [facility]. EMS apparently noted what they deemed to be seizure-like activity and she received 2.5 of Versed en route to the hospital. Upon arrival to the ED she was noted to be unresponsive and appeared to be obtunded. Upon seeing her at bedside, she remains minimally responsive to command, however is able to recite her name, was able to squeeze my hand utilizing her right hand did show some movement in all 4 extremities, albeit requiring multiple prompts in order to do so. On repeat evaluation approximately 1 hour later, she was stopped, alert and oriented ta lking to family at the bedside and interacting/responding to questions. Labratory review: -WBC 6.67, hemoglobin 12.1, hematocrit 36.8, platelet 271; sodium 125, potassium 4.4, chloride 95, bicarb 26, BUN 12, creatinine 0.56, calcium 8.8, total bilirubin 1.0, AST 40, ALT 48, alkaline phosphatase 116, creatinine kinase 168 -UA: Unremarkable Imaging: -Chest x-ray done in the ER independently read and interpreted showed perihilar fullness bilaterally possibly due to patient positioning, consider CT imaging further evaluation of the perihilar regions -CT shows no acute intracranial process; nonspecific white matter changes, likely secondary to chronic small vessel ischemic disease -CTA head/neck done showed no evidence of dissection of the cervical internal carotid arteries or vertebral arteries or any evidence of significant stenosis at the carotid bifurcation; no evidence of high-grade stenosis or intracranial aneurysm; partial visualization of the pleural effusion -EKG done in the ER showed heart rate of 60, no ST segment elevation or depression seen, no T-wave inversions seen. Vitals: -On arrival: Blood pressure 152/70, heart rate 57, respiratory to 18, SpO2 99% on 4 L nasal cannula -Most recently: Blood pressure 205/75, heart rate 65, respiratory rate 18, SpO2 97% on 4 L nasal cannula Patient admitted to internal medicine service REVIEW OF SYSTEMS: Pertinent positives and negatives noted in HPI. The rest of the 14-point review of systems is negative. Physical Exam: General: nontoxic, no distress, appears at stated age; poor dentition Derm: warm, dry, intact Head: atraumatic, normocephalic, symmetric Eyes: EOMI, anicteric sclera Mouth: no lip lesion, mucus membranes moist Cardiovascular: S1 S2 reg, no murmur, rubs, or gallops Lungs: CTA bilateral, no rales, no accessory muscle use Abdominal: soft, non-tender to palpataion, no appreciable organomegaly Extremities: no gross muscle atrophy, mild edema noted in the bilateral lower extremities Neuro: Alert, Oriented, CNII-XII grossly intact, gait normal Psych: well appearing, appropriate affect Assessment and plan 85-year-old female with a PMH of hypertension, hyperlipidemia, CAD s/p stenting (follows with Dr. Franco), hypothyroidism, early Alzheimer's disease (follows with Dr. Marcelino), diabetes mellitus, anxiety/depression. She presents to the [facility] department after being found unresponsive this morning in her bed at [facility]. #Acute onset encephalopathy, possibly due to CVA vs subclinical seizures vs infectious cause -CT brain read and reviewed; CTA head/neck read and reviewed; chest x-ray read and reviewed -EEG ordered, currently pending -MRI brain w/o contrast ordered, currently pending -Echocardiogram ordered, currently pending -Cepheid 4 Plex, drug screen, TSH, folate, thiamine, B12 all ordered, currently pending -Initiated on Keppra 500 mg every 12 hours -Neurochecks -Cardiac monitoring -Neurology following #Hyponatremia, likely hypovolemic -Sodium 125 on arrival -Received 500 cc bolus normal saline in the ED -Rechecking sodium this afternoon, reevaluate at the time -Urine sodium, urine osmolality, serum osmolality ordered, currently pending #Hypertension -Resume home nadolol 20 mg daily, lisinopril 40 mg twice daily -Hydralazine 5 mg every 6 hours as needed for BP > 180/120 -Hold home Norvasc secondary to lower extremity edema -Continue to reevaluate vital signs and make additional changes as needed Chronic conditions: #Anxiety/depression #Alzheimer's dementia #CAD s/p stenting GI prophylaxis: Famotidine 20 mg twice daily DVT prophylaxis: Heparin 5000 units SQ every 12 hours The patient is admitted as inpatient with an anticipated more than than 2 midnight stay for evaluation of acute encephalopathy possibly secondary to CVA v subclinical seizure v infectious cause CODE STATUS: No code Discussed with: Patient Anticipated discharge place: Pending clinical course Dictation was produced using [employer] dictation software. please excuse any grammatical, word or spelling errors. Ryan Waldrop MD PGY-1 IM I have seen and evaluated the patient today. Discussed with the resident and a gree with the residents finding and plan as documented in the resident's note. Changes highlighted in blue font. Past Medical History Past Medical History: Dementia, Diabetes Mellitus, GERD/Reflux, Hypertension, Osteoarthritis (OA), Thyroid Disorder Additional Past Medical History / Comment(s): HX ANEMIA, HIATAL HERNIA, STATES "SORE SPOT" IN STOMACH AND OCCASIONAL VOMITING., ARTHRITIS IN KNEES - USES CANE PRN. hx palpitations, SOB, "calcificaton in veins in heart", abdominal pain and bloating, diet contol "pre diabetic", urinary leakage, alopecia, History of Any Multi-Drug Resistant Organisms: None Reported Past Surgical History: Heart Catheterization With Stent, Hysterectomy Additional Past Surgical History / Comment(s): CHRISSY CATARACTS, BLADDER SUSPENSION, Past Anesthesia/Blood Transfusion Reactions: No Reported Reaction Additional Past Anesthesia/Blood Transfusion Reaction / Comment(s): DIFF IV STARTS Past Psychological History: Anxiety, Depression Smoking Status: Unknown if ever smoked Past Alcohol Use History: Rare Past Drug Use History: Unable to Obtain - Past Family History Mother Family Medical History: Cancer Additional Family Medical History / Comment(s): PANCREATIC CANCER Medications and Allergies Home Medications Medication Instructions Recorded Confirmed Type Enalapril [Vasotec] 20 mg PO BID@0800,199908/02/19 01/28/25 History Furosemide [Lasix] 20 mg PO DAILY@0800 08/02/19 01/28/25 History Levothyroxine Sodium 100 mcg PO MOTUWETHFRSA@0800 08/02/19 01/28/25 History Aspirin 81 mg PO DAILY@0800 05/12/23 01/28/25 History Acetaminophen Tab [Tylenol] 650 mg PO Q4H PRN 01/28/25 01/28/25 History Atorvastatin [Lipitor] 40 mg PO HS@199901/28/25 01/28/25 History Fluticasone Nasal Elfrida [Flonase 1 spray EA NOSTRIL BID@08,199901/28/25 01/28/25 History Nasal Elfrida] Hydrocortisone Oint 1 applic TOPICAL BID@799,199901/28/25 01/28/25 History [Hydrocortisone 2.5% Oint] I-Myranda Lutein Tab-Healthy Eyes 1 tab PO DAILY PRN 01/28/25 01/28/25 History Levothyroxine Sodium 50 mcg PO HOWARD@79901/28/25 01/28/25 History Sertraline [Zoloft] 50 mg PO DAILY@79901/28/25 01/28/25 History amLODIPine [Norvasc] 5 mg PO DAILY@0801/28/25 01/28/25 History nadoloL [Corgard] 20 mg PO DAILY@79901/28/25 01/28/25 History Allergies Allergy/AdvReac Type Severity Reaction Status Date / Time amoxicillin [From Prevpac] Allergy Unknown Rash/Hives Verified 01/28/25 14:41 clarithromycin [From Prevpac] Allergy Unknown Rash/Hives Verified 01/28/25 14:41 hydrocodone [From Lortab] Allergy Unknown RED FACE Verified 01/28/25 14:41 AND SKIN YELLOW lansoprazole [From Prevpac] Allergy Unknown Rash/Hives Verified 01/28/25 14:41 morphine Allergy Unknown Nausea & Verified 01/28/25 14:41 Vomiting Sulfa (Sulfonamide Allergy Unknown Unknown Verified 01/28/25 14:41 Antibiotics) NSAIDS (Non-Steroidal AdvReac Vomiting Verified 01/28/25 14:41 Anti-Inflamma Physical Exam Vitals: Vital Signs Temp Pulse Resp BP Pulse Ox 01/28/25 14:08 65 18 205/75 97 01/28/25 13:09 97.6 F 57 L 18 185/63 99 01/28/25 12:45 97.5 F L 57 L 18 152/70 99 Intake and Output 01/27/25 01/28/25 01/28/25 22:59 06:59 14:59 Other: Weight 74.843 kg Results CBC & Chem 7: 01/28/25 12:55 01/28/25 12:55 Labs: Abnormal Lab Results - Last 24 Hours (Table) 01/28/25 01/28/25 01/28/25 Range/Units 12:54 12:55 12:55 Hct 36.8 L (37.2-46.3) % Lymphocytes # 0.80 L (0.90-5.00) 10*3/uL Sodium 125 L (137-145) mmol/L Chloride 95 L (98-107) mmol/L Glucose 147 H (74-99) mg/dL POC Glucose (mg/dL) 144 H (70-110) mg/dL AST 40 H (14-36) U/L ALT 48 H (4-34) U/L Creatine Kinase 168 H (30-135) U/L Urine Protein (Negative) Urine Blood (Negative) Urine RBC (0-5) /hpf 01/28/25 Range/Units 13:15 Hct (37.2-46.3) % Lymphocytes # (0.90-5.00) 10*3/uL Sodium (137-145) mmol/L Chloride (98-107) mmol/L Glucose (74-99) mg/dL POC Glucose (mg/dL) (70-110) mg/dL AST (14-36) U/L ALT (4-34) U/L Creatine Kinase (30-135) U/L Urine Protein 1+ H (Negative) Urine Blood Trace H (Negative) Urine RBC 11 H (0-5) /hpf
[2025-01-28 17:23] LABS: Amphetamine Screen,Urine Not Detected (NotDetected); Barbiturate Screen,Urine Not Detected (NotDetected); Benzodiazepines Screen,Urine Not Detected (NotDetected); Cocaine Screen,Urine Not Detected (NotDetected); Methadone Screen, Urine Not Detected (NotDetected); Opiate Screen,Urine Not Detected (NotDetected); Oxycodone Screen, Urine Not Detected (NotDetected); Phencyclidine Screen,Urine Not Detected (NotDetected); Tricyclic Antidepressant,Urine Not Detected (NotDetected); Urn Cannabinoid Scrn Not Detected (NotDetected)
[2025-01-28 17:23] LABS: Influenza A Not Detected (Not Detectd); Influenza B Not Detected (Not Detectd); RSV Not Detected (Not Detectd)
[2025-01-28] MEDS: ONDANSETRON 4 MG/2 ML VIAL IVP STA (18:15)
[2025-01-28] MEDS: ATORVASTATIN 40 MG TAB PO SCH (19:11)
[2025-01-28] MEDS: lisinopriL 20 MG TAB PO SCH (19:12)
--- NOTE | 2025-01-28 19:20 | P.CNNES ---
History of Present Illness Consult date: 01/28/25 Requesting physician: Shruthi Hopkins Reason for Consult: ams History of Present Illness: This is an 85-year-old woman with history of Alzheimer's dementia who presents to the emergency department because of altered mental status. History is obtained from the patient's daughter who is at bedside as well as medical recor d. According to the daughter she just moved into [facility] over the last 2 days and today the patient was feeling well. And around 8:30 AM the daughter got a call from the nursing facility that the patient was having gaze deviation and shaking of the left arm and nonresponsive. Patient does not have any history of seizures. She does not have any history of stroke. The emergency department note seems that the last normal was 10:30 PM last night and today she was found on the ground with left gaze deviation and right sided weakness there was noted to have seizure-like activity. Over her right side and was given 2.5 mg of Versed by EMS. Upon arrival her GCS was at 3. Her blood sugar prior to arrival was 150. And reportedly her blood pressure was elevated prior to arrival. She has been having progressive dementia for at least the 5 years and she was diagnosed with Alzheimer's dementia about a year and a half ago by local neurologist, Dr. Marcelino. She is oriented x 1 to herself. But can have a normal conversation with family members. Sometimes she would not know her daughter's name. In the past she had falls with rib fracture and according to the daughter she had falls because of unsteady gait. Some of the workup during this hospital visit consisted of: Sodium is 125 AST is 40 and ALT is 48 I reviewed the rest of the lab workup. CT of the head is reported as no acute intracranial process. I reviewed the CT head and agree with the report CT angiography of the head and neck is reported as no evidence of dissection of cervical internal carotid artery or vertebral artery or any evidence of significant stenosis at the carotid bifurcation. No evidence of high-grade stenosis or intracranial aneurysm. Partial visualization of the left pleural effusion. Review of Systems Limited but as per HPI. Past Medical History Past Medical History: Dementia, Diabetes Mellitus, GERD/Reflux, Hypertension, Osteoarthritis (OA), Thyroid Disorder Additional Past Medical History / Comment(s): HX ANEMIA, HIATAL HERNIA, STATES "SORE SPOT" IN STOMACH AND OCCASIONAL VOMITING., ARTHRITIS IN KNEES - USES CANE PRN. hx palpitations, SOB, "calcificaton in veins in heart", abdominal pain and bloating, diet contol "pre diabetic", urinary leakage, alopecia, History of Any Multi-Drug Resistant Organisms: None Reported Past Surgical History: Heart Catheterization With Stent, Hysterectomy Additional Past Surgical History / Comment(s): CHRISSY CATARACTS, BLADDER SUSPENSION, Past Anesthesia/Blood Transfusion Reactions: No Reported Reaction Additional Past Anesthesia/Blood Transfusion Reaction / Comment(s): DIFF IV STARTS Past Psychological History: Anxiety, Depression Smoking Status: Unknown if ever smoked Past Alcohol Use History: Rare Past Drug Use History: Unable to Obtain - Past Family History Mother Family Medical History: Cancer Additional Family Medical History / Comment(s): PANCREATIC CANCER Medications and Allergies Home Medications Medication Instructions Recorded Confirmed Type Enalapril [Vasotec] 20 mg PO BID@08,199908/02/19 01/28/25 History Furosemide [Lasix] 20 mg PO DAILY@79908/02/19 01/28/25 History Levothyroxine Sodium 100 mcg PO MOTUWETHFRSA@79908/02/19 01/28/25 History Aspirin 81 mg PO DAILY@79905/12/23 01/28/25 History Acetaminophen Tab [Tylenol] 650 mg PO Q4H PRN 01/28/25 01/28/25 History Atorvastatin [Lipitor] 40 mg PO HS@199901/28/25 01/28/25 History Fluticasone Nasal Delight [Flonase 1 spray EA NOSTRIL BID@799,199901/28/25 01/28/25 History Nasal Delight] Hydrocortisone Oint 1 applic TOPICAL BID@799,199901/28/25 01/28/25 History [Hydrocortisone 2.5% Oint] I-Myranda Lutein Tab-Healthy Eyes 1 tab PO DAILY PRN 01/28/25 01/28/25 History Levothyroxine Sodium 50 mcg PO HOWARD@79901/28/25 01/28/25 History Sertraline [Zoloft] 50 mg PO DAILY@79901/28/25 01/28/25 History amLODIPine [Norvasc] 5 mg PO DAILY@79901/28/25 01/28/25 History nadoloL [Corgard] 20 mg PO DAILY@79901/28/25 01/28/25 History Allergies Allergy/AdvReac Type Severity Reaction Status Date / Time amoxicillin [From Prevpa] Allergy Unknown Rash/Hives Verified 01/28/25 14:41 clarithromycin [From Prevpac] Allergy Unknown Rash/Hives Verified 01/28/25 14:41 hydrocodone [From Lortab] Allergy Unknown RED FACE Verified 01/28/25 14:41 AND SKIN YELLOW lansoprazole [From Prevpac] Allergy Unknown Rash/Hives Verified 01/28/25 14:41 morphine Allergy Unknown Nausea & Verified 01/28/25 14:41 Vomiting Sulfa (Sulfonamide Allergy Unknown Unknown Verified 01/28/25 14:41 Antibiotics) NSAIDS (Non-Steroidal AdvReac Vomiting Verified 01/28/25 14:41 Anti-Inflamma Physical Examination - Vital Signs Vital Signs: Vital Signs Temp Pulse Resp BP Pulse Ox 01/28/25 19:03 64 18 144/68 96 01/28/25 18:16 99.1 F 67 20 151/66 98 01/28/25 16:30 57 L 18 176/69 98 01/28/25 16:00 67 16 187/74 98 01/28/25 15:30 62 16 180/81 99 01/28/25 15:00 66 16 189/72 99 01/28/25 14:09 97.6 F 57 L 18 185/63 99 01/28/25 14:08 65 18 205/75 97 01/28/25 13:09 97.6 F 57 L 18 185/63 99 01/28/25 12:45 97.5 F L 57 L 18 152/70 99 Intake and Output 01/28/25 01/28/25 01/28/25 06:59 14:59 22:59 Other: Weight 74.843 kg General: Lying in bed and does not appear in acute distress. Neuro: Very limited. Patient is severely drowsy but is briefly awakeable to voice. She responded to her daughter and was oriented to self (and per daughter better compared to earlier). She repeated some phrases. I had to manually open her eyes and initially had left gaze but was able to look to right after multiple tries. No facial weakness. No limited language no dysarthria. Motor: Unable to assess. Plantars: Mute. Results - Laboratory Findings CBC and BMP: 01/28/25 12:55 01/28/25 12:55 Abnormal Lab Findings: Abnormal Labs 01/28/25 01/28/25 01/28/25 12:54 12:55 12:55 Hct 36.8 L Lymphocytes # 0.80 L Sodium 125 L Chloride 95 L Glucose 147 H POC Glucose (mg/dL) 144 H AST 40 H ALT 48 H Creatine Kinase 168 H Urine Protein Urine Blood Urine RBC 01/28/25 13:15 Hct Lymphocytes # Sodium Chloride Glucose POC Glucose (mg/dL) AST ALT Creatine Kinase Urine Protein 1+ H Urine Blood Trace H Urine RBC 11 H Assessment and Plan Assessment: This is an 85-year-old woman history of Alzheimer's who presents the emergency department from her nursing facility because of being found on the ground with left gaze deviation and right-sided weakness then had seizure-like activity over the right side. 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 I think the likely culprit of her seizure is likely due to her Alzheimer's dementia. Also hyponatremic can increase risk for seizure but her hyponatremia is not significant enough to provoke seizure. Mild to moderate hyponatremia of 125 History of Alzheimer's dementia at baseline patient is oriented x 1 and that to herself only. History of falls Plan: MRI of the brain was ordered by the primary team I agree with the primary team starting her on Keppra 500 mg every 12 hours Seizure precautions seizure pads.. Patient is on Ativan. Preliminary EEG was negative for any seizure but showed sharply contoured activity over the right parietal region Patient started on aspirin 81 mg daily as well as Lipitor 40 mg nightly by the primary team Continue neurochecks PT OT and [employer] [facility] are consulted Will defer the rest of the medical management department other specialist The plan discussed with the patient daughter who is at bedside and her son-in-law. Thank you for the consultation Dr. Castellanos will resume neurology service tomorrow A.M. Time with Patient: Greater than 30
[2025-01-28] MEDS: FAMOTIDINE 20 MG TAB PO SCH (20:00)
[2025-01-28] MEDS: levETIRAcetam IV 500 MG/5 ML VIAL IVP SCH (20:05)
[2025-01-28] MEDS: HEPARIN SODIUM,PORCINE 5,000 UNIT/ML 1 ML VIAL SQ SCH (20:05)
[2025-01-28] MEDS: LORazepam 2 MG/ML INJ IV PRN (23:33)
--- NOTE | 2025-01-29 03:32 | EEG ---
ELECTROENCEPHALOGRAM REPORT CLINICAL HISTORY: This is an 85-year-old woman with altered mental status. The video EEG is obtained to evaluate for seizure epileptiform activity. RELEVANT MEDICATIONS: The patient is not on any antiepileptic drugs. EEG TYPE: This is a routine 21-channel EEG with video using the 10/20 electrode placement system. DESCRIPTION: Wakefulness and drowsiness are obtained. During awake state, the background consists of [id number] voltage of 6-7 hertz activity intermixed with delta activity. There is no physiological stage 2 sleep architecture. There is no focal slowing. Interictal and ictal, there is sharply contoured activity over the right parietal region. No clear discharges or seizure on the EEG. ACTIVATION PROCEDURES: Photic stimulation and hyperventilation are not performed. CLINICAL INTERPRETATION: This is an abnormal limited routine EEG. The background slowing is suggestive of moderate encephalopathy. There is no focal slowing, clear epileptiform discharge, or seizure on the EEG. There is sharply contoured activity over the right parietal that can increase cortical irritability as stated earlier. No clear discharges. Clinical correlation is recommended. MMCARL / TANNERN: [id number] /
[2025-01-29] MEDS: LEVOTHYROXINE 100 MCG TAB PO SCH (06:28)
[2025-01-29 07:40] LABS: Basophils # (A) 0.03 10*3/uL (0.00-0.10); Basophils % (A) 0.4 %; HCT 36.2 % (37.2-46.3); HGB 12.7 g/dL (12.0-15.0); Lymphocytes # (A) 1.14 10*3/uL (0.90-5.00); Lymphocytes % (A) 15.3 %; MCHC 35.1 g/dL (32.0-37.0); MCV 85.4 fL (80.0-97.0); Mean Platelet Volume 10.4 fL (9.5-12.2); Monocytes # (A) 0.82 10*3/uL (0.20-1.00); Neutrophils # (A) 5.11 10*3/uL (1.80-7.70); Neutrophils % (A) 68.4 %; Platelet Count 285 10*3/uL (140-440); RBC 4.24 10*6/uL (4.10-5.20); RDW 14.4 % (11.5-14.5); WBC 7.47 10*3/uL (4.50-10.00)
[2025-01-29] MEDS ORDERED: amLODIPine 5 MG TAB PO SCH (08:00)
[2025-01-29 08:28] LABS: ALT 56 U/L (4-34); AST 49 U/L (14-36); African American GFR (CKD) 87 (>60 ml/min/1.73 sqM); Albumin 3.7 g/dL (3.5-5.0); Alkaline Phosphatase 123 U/L (38-126); Anion Gap 8 mmol/L; Blood Urea Nitrogen 19 mg/dL (7-17); Calcium 8.8 mg/dL (8.4-10.2); Carbon Dioxide 24 mmol/L (22-30); Chloride 95 mmol/L (98-107); Creatine Kinase 264 U/L (30-135); Glucose 103 mg/dL (74-99); Non-African American GFR(CKD) 75 (>60 ml/min/1.73 sqM); Potassium 4.4 mmol/L (3.5-5.1); Sodium 127 mmol/L (137-145); Total Protein 6.3 g/dL (6.3-8.2)
[2025-01-29] MEDS: ASPIRIN 81 MG PO SCH (09:43)
[2025-01-29] MEDS: SERTRALINE 50 MG TAB PO SCH (09:43)
[2025-01-29] MEDS: lisinopriL 20 MG TAB PO SCH (09:44)
[2025-01-29] MEDS: SODIUM CHLORIDE 0.9% 1,000 ML IV SCH (10:45)
[2025-01-29] MEDS: levETIRAcetam IV 500 MG/5 ML VIAL IVP STA (10:46)
--- NOTE | 2025-01-29 11:20 | P.PN ---
Subjective Progress Note Date: 01/29/25 History of present illness; 85-year-old female with a PMH of hypertension, hyperlipidemia, CAD s/p stenting (follows with Dr. Franco), hypothyroidism, early Alzheimer's disease (follows with Dr. Marcelino), diabetes mellitus, anxiety/depression. She presents to the emergency department after being found unresponsive this morning in her bed at [facility]. Apparently, this morning she was on the phone with her children, at that time she seemed a bit agitated and confused however they were not discussed with her. They were then contacted later that morning with the report that she was found unresponsive in her room at [facility]. EMS apparently noted what they deemed to be seizure-like activity and she received 2.5 of Versed en route to the hospital. Upon arrival to the ED she was noted to be unresponsive and appeared to be obtunded. Upon seeing her at bedside, she remains minimally responsive to command, however is able to recite her name, was able to squeeze my hand utilizing her right hand did show some movement in all 4 extremities, albeit requiring multiple prompts in order to do so. On repeat evaluation approximately 1 hour later, she was stopped, alert and oriented talking to family at the bedside and interacting/responding to questions. 01/29 - She is seen and examined at bedside this morning, remaining in the ED. late last night she returned to a similar presentation to how she arrived, being less alert and oriented as well as limitations in interacting. Overnight, she woke up at 1 point and was noted to be very confused, speaking nonsensically, and more agitated to the point where she was given Ativan which helped settle her down. Upon being seen this morning, she responds to deep sternal rub with grunting, however does not follow commands and speech or physical movement. REVIEW OF SYSTEMS: Pertinent positives and negatives noted in HPI. Physical Exam: General: nontoxic, no distress, appears at stated age; poor dentition Derm: warm, dry, intact Head: atraumatic, normocephalic, symmetric Eyes: EOMI, anicteric sclera Mouth: no lip lesion, mucus membranes moist Cardiovascular: S1 S2 reg, no murmur, rubs, or gallops Lungs: CTA bilateral, no rales, no accessory muscle use Abdominal: soft, non-tender to palpataion, no appreciable organomegaly Extremities: no gross muscle atrophy, mild edema noted in the bilateral lower extremities Neuro: A&O x 0 this morning, unable to assess physical ability Psych: well appearing, appropriate affect Data Received Today: Labs: -WBCs 7.47, hemoglobin 12.7 hematocrit 36.2, platelet 285; sodium 127, potassium 4.4, BUN 19, creatinine 0.74, calcium 8.8, total bilirubin 1.0, AST 49, ALT 56, alkaline phosphatase 123, creatinine kinase 264, TSH 1.540 -Urine osmolality 45, urine random sodium 178, serum osmolality 270 -Urine tox screen all negative -Viral respiratory panel negative Imagining: EEG from last night is considered abnormal, with background slowing s uggestive of moderate encephalopathy Assessment and plan 85-year-old female with a PMH of hypertension, hyperlipidemia, CAD s/p stenting (follows with Dr. Franco), hypothyroidism, early Alzheimer's disease (follows with Dr. Marcelino), diabetes mellitus, anxiety/depression. She presents to the emergency department after being found unresponsive this morning in her bed at [facility]. #Acute onset encephalopathy, possibly due to CVA vs subclinical seizures vs less likely, infectious cause -EEG results read and reviewed -MRI brain w/o contrast ordered, currently pending -Echocardiogram ordered, currently pending -Cepheid 4 Plex, drug screen all negative -TSH 1.540 -Folate, thiamine, B12 all ordered, currently pending -Keppra increased to 1,000 mg every 12 hours -Neurochecks -Cardiac monitoring -Neurology following #Hyponatremia, likely hypovolemic -Sodium 127 this morning -Continue with NS at 130 cc/h -Continue to monitor sodium -Urine sodium 178, urine osmolality 45, serum osmolality 270 #Hypertension -Resume home nadolol 20 mg daily, lisinopril decreased to 40 mg once daily -Hydralazine 5 mg every 6 hours as needed for BP > 180/120 -Hold home Norvasc secondary to lower extremity edema -Continue to reevaluate vital signs and make additional changes as needed Chronic conditions: #Anxiety/depression #Alzheimer's dementia #CAD s/p stenting GI prophylaxis: Famotidine 20 mg twice daily DVT prophylaxis: Heparin 5000 units SQ every 12 hours Code status: No code F: NS 130 cc/h E: Replete as needed N: N.p.o. A: Ambulatory Anticipated discharge place: Pending clinical course Anticipated discharge time: Pending clinical course Dictation was produced using [employer] dictation software. please excuse any grammatical, word or spelling errors. Ryan Waldrop MD PGY-1 IM I have seen and evaluated the patient today. Discussed with the resident and agree with the residents finding and plan as documented in the resident's note. Changes highlighted in blue font. Severely ill, needs close monitoring Objective - Vital Signs Vital signs: Vital Signs Temp 99.1 F 01/28/25 18:16 Pulse 60 01/29/25 05:00 Resp 18 01/29/25 05:00 BP 150/59 01/29/25 05:00 Pulse Ox 93 L 01/29/25 05:00 FiO2 Intake & Output 01/28/25 01/29/25 01/29/25 18:59 06:59 18:59 Weight 74.843 kg - Labs CBC & Chem 7: 01/29/25 07:28 01/29/25 07:28 Labs: Abnormal Lab Results - Last 24 Hours (Table) 01/28/25 01/28/25 01/28/25 Range/Units 12:54 12:55 12:55 Hct 36.8 L (37.2-46.3) % Lymphocytes # 0.80 L (0.90-5.00) 10*3/uL Sodium 125 L (137-145) mmol/L Chloride 95 L (98-107) mmol/L Glucose 147 H (74-99) mg/dL POC Glucose (mg/dL) 144 H (70-110) mg/dL Osmolality (275-295) mOsm/kg AST 40 H (14-36) U/L ALT 48 H (4-34) U/L Creatine Kinase 168 H (30-135) U/L Urine Protein (Negative) Urine Blood (Negative) Urine RBC (0-5) /hpf 01/28/25 01/28/25 01/28/25 Range/Units 12:55 13:15 19:40 Hct (37.2-46.3) % Lymphocytes # (0.90-5.00) 10*3/uL Sodium 126 L (137-145) mmol/L Chloride (98-107) mmol/L Glucose (74-99) mg/dL POC Glucose (mg/dL) (70-110) mg/dL Osmolality 270 L (275-295) mOsm/kg AST (14-36) U/L ALT (4-34) U/L Creatine Kinase (30-135) U/L Urine Protein 1+ H (Negative) Urine Blood Trace H (Negative) Urine RBC 11 H (0-5) /hpf
--- NOTE | 2025-01-29 14:50 | P.PN ---
Subjective Progress Note Date: 01/29/25 The patient is a 85-year-old female who was seen in neurologic follow-up on January 29, 2025, in collaboration with Kari Johnson, via teleneurology. The patient's chart has been reviewed. EEG was completed yesterday and was found to be negative for seizure activity. Sodium is slightly up higher today at 127. The patient's daughter is at the bedside at the time of the evaluation. She says she was with her mother all night long. She reports that there were no further seizures. It is noted in review of the hospitalist note, the patient did become more alert yesterday afternoon. She was interacting with people and answering questions. This morning, on my evaluation, the patient is obtunded. She is unable to answer any questions. She reportedly received Ativan during the night, for agitation. Objective - Vital Signs Vital signs: Vital Signs Temp 99.1 F 01/28/25 18:16 Pulse 60 01/29/25 05:00 Resp 18 01/29/25 05:00 BP 150/59 01/29/25 05:00 Pulse Ox 93 L 01/29/25 05:00 FiO2 Intake & Output 01/28/25 01/29/25 01/29/25 18:59 06:59 18:59 Weight 74.843 kg 74.843 kg - Exam General: The patient is well-nourished, well-developed and in no acute distress. She is seen in the emergency department, she is laying on the gurney. HEENT: Head is atraumatic, normocephalic. Fundus not visualized. There is no scleral icterus. Mucous membranes are moist. Neurological examination Mental status: The patient does not open her eyes to verbal or noxious stim ulation. She follows no commands. She does appear to be somewhat responsive and that she turns her head away and toward verbal stimulation. The patient is nonverbal, other than to say "ouch" and "yes" Cranial nerves: Pupils are equal at 2 mm and minimally reactive. Eyes are midline when eyelids are passively opened. There is no obvious facial asymmetry. Motor: The patient does not follow instructions for strength testing however, is repositioning herself in the bed and moving all 4 extremities Sensation: The patient does withdraw all 4 extremities, from noxious stimulation Deep tendon reflexes: Absent in the bilateral upper extremities. Right patellar reflex 2+/4+. Left patellar reflex absent secondary to knee replacement surgery. Coordination: Unable to be assessed at this time Gait: Unable to be assessed at this time - Labs CBC & Chem 7: 01/29/25 07:28 01/29/25 07:28 Labs: Abnormal Lab Results - Last 24 Hours (Table) 01/28/25 01/28/25 01/28/25 Range/Units 12:54 12:55 12:55 Hct 36.8 L (37.2-46.3) % Immature Gran # (0.00-0.04) 10*3/uL Lymphocytes # 0.80 L (0.90-5.00) 10*3/uL Sodium 125 L (137-145) mmol/L Chloride 95 L (98-107) mmol/L BUN (7-17) mg/dL Glucose 147 H (74-99) mg/dL POC Glucose (mg/dL) 144 H (70-110) mg/dL Osmolality (275-295) mOsm/kg AST 40 H (14-36) U/L ALT 48 H (4-34) U/L Creatine Kinase 168 H (30-135) U/L Urine Protein (Negative) Urine Blood (Negative) Urine RBC (0-5) /hpf 01/28/25 01/28/25 01/28/25 Range/Units 12:55 13:15 19:40 Hct (37.2-46.3) % Immature Gran # (0.00-0.04) 10*3/uL Lymphocytes # (0.90-5.00) 10*3/uL Sodium 126 L (137-145) mmol/L Chloride (98-107) mmol/L BUN (7-17) mg/dL Glucose (74-99) mg/dL POC Glucose (mg/dL) (70-110) mg/dL Osmolality 270 L (275-295) mOsm/kg AST (14-36) U/L ALT (4-34) U/L Creatine Kinase (30-135) U/L Urine Protein 1+ H (Negative) Urine Blood Trace H (Negative) Urine RBC 11 H (0-5) /hpf 01/29/25 01/29/25 Range/Units 07:28 07:28 Hct 36.2 L (37.2-46.3) % Immature Gran # 0.07 H (0.00-0.04) 10*3/uL Lymphocytes # (0.90-5.00) 10*3/uL Sodium 127 L (137-145) mmol/L Chloride 95 L (98-107) mmol/L BUN 19 H (7-17) mg/dL Glucose 103 H (74-99) mg/dL POC Glucose (mg/dL) (70-110) mg/dL Osmolality (275-295) mOsm/kg AST 49 H (14-36) U/L ALT 56 H (4-34) U/L Creatine Kinase 264 H (30-135) U/L Urine Protein (Negative) Urine Blood (Negative) Urine RBC (0-5) /hpf Assessment and Plan Assessment: 1. 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 I think the lik shimon culprit of her seizure is likely due to her Alzheimer's dementia. Also hyponatremic can increase risk for seizure but her hyponatremia is not significant enough to provoke seizure. 2. Mild to moderate hyponatremia of 125 3. History of Alzheimer's dementia at baseline patient is oriented x 1 and that to herself only. 4. History of falls Plan: Plan: 1. MRI of the brain was ordered by the primary team 2. I agree with the primary team starting her on Keppra 500 mg every 12 hours 3. Seizure precautions seizure pads.. 4. Patient is on Ativan, as needed breakthrough seizure 5. Preliminary EEG was negative for any seizure but showed sharply contoured activity over the right parietal region 6. Patient started on aspirin 81 mg daily as well as Lipitor 40 mg nightly by the primary team 7. Continue neurochecks 8. PT OT and MACHINE PACK ASSEMBLER are consulted Will defer the rest of the medical management department other specialist Time with Patient: Greater than 30 (35 minutes were spent caring for this patient today including, obtaining history, examining patient, reviewing imaging, chart documentation, labs, placing orders and creating this note)
[2025-01-29] MEDS: hydrALAZINE HCL 20 MG/ML 1 ML VIAL IVP PRN (17:35)
[2025-01-29] MEDS ORDERED: LORazepam 1 MG/0.5 ML VIAL IV PRN (19:33)
[2025-01-29] MEDS: levETIRAcetam IV 500 MG/5 ML VIAL IVP SCH (20:14)
[2025-01-29] MEDS: OLANZapine 10 MG VIAL IM PRN (21:47)
[2025-01-30] MEDS: LORazepam 1 MG/0.5 ML VIAL IV STA (00:16)
[2025-01-30] MEDS: LEVOTHYROXINE 50 MCG TAB PO SCH (05:56)
[2025-01-30 09:10] LABS: Basophils # (A) 0.05 10*3/uL (0.00-0.10); Basophils % (A) 0.6 %; Eosinophils # (A) 0.35 10*3/uL (0.04-0.35); Eosinophils % (A) 4.5 %; HCT 35.4 % (37.2-46.3); HGB 12.3 g/dL (12.0-15.0); Lymphocytes # (A) 1.28 10*3/uL (0.90-5.00); Lymphocytes % (A) 16.5 %; MCHC 34.7 g/dL (32.0-37.0); MCV 86.3 fL (80.0-97.0); Mean Platelet Volume 9.4 fL (9.5-12.2); Monocytes # (A) 0.89 10*3/uL (0.20-1.00); Monocytes % (A) 11.5 %; Neutrophils # (A) 5.16 10*3/uL (1.80-7.70); Neutrophils % (A) 66.4 %; Platelet Count 282 10*3/uL (140-440); RDW 14.6 % (11.5-14.5); WBC 7.77 10*3/uL (4.50-10.00)
[2025-01-30 09:20] LABS: African American GFR (CKD) >90 (>60 ml/min/1.73 sqM); Anion Gap 10 mmol/L; Blood Urea Nitrogen 19 mg/dL (7-17); Calcium 8.6 mg/dL (8.4-10.2); Carbon Dioxide 19 mmol/L (22-30); Chloride 103 mmol/L (98-107); Glucose 84 mg/dL (74-99); Magnesium 1.8 mg/dL (1.6-2.3); Non-African American GFR(CKD) 83 (>60 ml/min/1.73 sqM); Potassium 3.9 mmol/L (3.5-5.1); Sodium 132 mmol/L (137-145)
--- NOTE | 2025-01-30 11:05 | P.PN ---
Subjective Progress Note Date: 01/30/25 Subjective: Patient seen and examined at bedside. Overnight she did have agitation. No bowel movements, poor oral intake. Urinating well. She also had episode of atrial fibrillation with RVR, now in sinus. Pertinent positives and negatives as discussed above, a complete review of systems was performed and all other systems are negative. Vitals Signs Reviewed. General: Nontoxic, no distress, appears at stated age chronically ill-appearing Derm: Warm, dry Head: Atraumatic, normocephalic, symmetric Eyes: EOMI, no lid lag, anicteric sclera Mouth: No lip lesion, mucus membranes moist, poor senior care Cardiovascular: S1S2 reg, no murmur Lungs: CTA bilateral, no rhonchi, no rales, no accessory muscle use Abdominal: Soft, nontender to palpation, no guarding, no appreciable organomega ly Ext: No gross muscle atrophy, trace peripheral edema, no contractures Neuro: Not following commands, no focal neuro deficits Psych: Somnolent, appropriate affect Data Reviewed Today: Pertinent Labs: WBC 7.77, hemoglobin 12.3, platelet 282, sodium 132, creatinine 0.62, magnesium 1.8, B12 582, folate 19.9, TSH 1.5 Imaging: No new imaging Assessment and Plan: Active: Acute encephalopathy, likely metabolic Suspected seizure History of Alzheimer's dementia - MRI and echocardiogram pending - Neurology following - On aspirin 81 mg, atorvastatin 40 mg, Keppra thousand IV every 12 hours - Likely also has delirium New onset A-fib with RVR, now in sinus - Echocardiogram pending - TSH was normal - Patient should be considered for anticoagulation, however per family, the benefit may outweigh the risk at the moment - Continue telemetry monitoring Hyponatremia, hypovolemic, resolving - Continue normal saline at 130 cc an hour - Repeat BMP tomorrow - Continue to hold Lasix Hypertension - Continue nadolol 20 mg daily, lisinopril 40 mg daily, holding amlodipine and Lasix Chronic: Hypothyroidism Depression DVT ppx: Subcu heparin Code status: DNR/DNI Anticipated discharge place: Pending clinical course Anticipated discharge time: Pending clinical course Objective - Vital Signs Vital signs: Vital Signs Temp 98.1 F 01/30/25 08:45 Pulse 63 01/30/25 08:45 Resp 19 01/30/25 08:45 BP 127/70 01/30/25 08:45 Pulse Ox 96 01/30/25 08:45 FiO2 Intake & Output 01/29/25 01/30/25 01/30/25 18:59 06:59 18:59 Output Total 700 Balance -700 Weight 74.843 kg 67 kg Output: Urine 700 Other: Voiding Method Indwelling Catheter Indwelling Catheter - Labs CBC & Chem 7: 01/30/25 08:53 01/30/25 08:53 Labs: Abnormal Lab Results - Last 24 Hours (Table) 01/29/25 01/30/25 01/30/25 Range/Units 16:08 08:53 08:53 Hct 35.4 L (37.2-46.3) % MPV 9.4 L (9.5-12.2) fL Sodium 128 L 132 L (137-145) mmol/L Carbon Dioxide 19 L (22-30) mmol/L BUN 19 H (7-17) mg/dL
--- NOTE | 2025-01-30 15:40 | P.PN ---
Subjective Progress Note Date: 01/30/25 The patient is a 85-year-old female who was seen in neurologic follow-up on January 29, 2025, in collaboration with Kari Johnson, via teleneurology. The patient's chart has been reviewed. EEG was completed yesterday and was found to be negative for seizure activity. Sodium is slightly up higher today at 127. The patient's daughter is at the bedside at the time of the evaluation. She says she was with her mother all night long. She reports that there were no further seizures. It is noted in review of the hospitalist note, the patient did become more alert yesterday afternoon. She was interacting with people and answering questions. This morning, on my evaluation, the patient is obtunded. She is unable to answer any questions. She reportedly received Ativan during the night, for agitation. The patient is seen in neurologic follow-up on January 30, 2025, in collaboration with Kari Johnson, via teleneurology. The patient's son is present in the room at the time of evaluation. He reports that the patient was apparently awake earlier this morning and had some applesauce. She was minimally verbal. She was not awake for very long. There have been no observed or documented breakthrough seizures. Objective - Vital Signs Vital signs: Vital Signs Temp 98.1 F 01/30/25 08:45 Pulse 63 01/30/25 08:45 Resp 19 01/30/25 08:45 BP 127/70 01/30/25 08:45 Pulse Ox 96 01/30/25 08:45 FiO2 Intake & Output 01/29/25 01/30/25 01/30/25 18:59 06:59 18:59 Weight 74.843 kg 67 kg Other: Voiding Method Indwelling Catheter Indwelling Catheter - Exam General: The patient is well-nourished, well-developed and in no acute distress. HEENT: Head is atraumatic, normocephalic. Fundus not visualized. There is no scleral icterus. Mucous membranes are moist. Neurological examination Mental status: The patient does not open her eyes to verbal or noxious stimulation. She follows no commands. She does appear to be somewhat responsive in that she turns her head away and toward verbal stimulation. The patient is nonverbal. Cranial nerves: Pupils are equal at 2 mm and minimally reactive. Eyes are midline when eyelids are passively opened. There is no obvious facial asymmetry. Motor: The patient does not follow instructions for strength testing however, is repositioning herself in the bed and moving all 4 extremities Sensation: The patient does withdraw all 4 extremities, from noxious stimulation Deep tendon reflexes: Absent in the bilateral upper extremities. Right patellar reflex 2+/4+. Left patellar reflex absent secondary to knee replacement surgery. Coordination: Unable to be assessed at this time Gait: Unable to be assessed at this time - Labs CBC & Chem 7: 01/30/25 08:53 01/30/25 08:53 Labs: Abnormal Lab Results - Last 24 Hours (Table) 01/29/25 01/30/25 01/30/25 Range/Units 16:08 08:53 08:53 Hct 35.4 L (37.2-46.3) % MPV 9.4 L (9.5-12.2) fL Sodium 128 L 132 L (137-145) mmol/L Carbon Dioxide 19 L (22-30) mmol/L BUN 19 H (7-17) mg/dL Assessment and Plan Assessment: 1. 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 The likely etiology of her seizure is due to her Alzheimer's dementia. Also hyponatremia can increase risk for seizure. Hyponatremia is improved today. 2. Sodium has improved to 130 3. History of Alzheimer's dementia at baseline patient is oriented x 1 and that to herself only. 4. History of falls Plan: Plan: 1. MRI of the brain was ordered by the primary team 2. I agree with the primary team starting her on Keppra 500 mg every 12 hours 3. Seizure precautions seizure pads.. 4. Patient is on Ativan, as needed breakthrough seizure 5. Preliminary EEG was negative for any seizure but showed sharply contoured activity over the right parietal region 6. Patient started on aspirin 81 mg daily as well as Lipitor 40 mg nightly by the primary team 7. Continue neurochecks 8. PT OT and LEAD LOADER are consulted 9. Repeat EEG has been ordered 10. Dr. Yates will assume neurologic coverage of this patient as of January 31, 2025 Will defer the rest of the medical management department other specialist Time with Patient: Greater than 30 (35 minutes were spent caring for this patient today including, obtaining an interim history, examining the patient, reviewing chart documentation, imaging, labs, placing orders and creating this note)
[2025-01-31 05:23] LABS: African American GFR (CKD) >90 (>60 ml/min/1.73 sqM); Anion Gap 8 mmol/L; Blood Urea Nitrogen 20 mg/dL (7-17); Calcium 8.7 mg/dL (8.4-10.2); Carbon Dioxide 20 mmol/L (22-30); Chloride 104 mmol/L (98-107); Glucose 80 mg/dL (74-99); Magnesium 1.8 mg/dL (1.6-2.3); Non-African American GFR(CKD) 80 (>60 ml/min/1.73 sqM); Potassium 3.8 mmol/L (3.5-5.1); Sodium 132 mmol/L (137-145)
[2025-01-31] MEDS: LORazepam 1 MG TAB PO ONE (09:12)
--- NOTE | 2025-01-31 10:08 | MR ---
INDICATION: Patient age:Female; 85 years old; Reason for study: Possible CVA; PHH. COMPARISON: MRI brain 01/22/2024, CT brain 01/28/2025, CTA head and neck 01/28/2025, CT brain 07/07/2023. TECHNIQUE: Multi planar, multi sequence imaging was performed through the brain without administratio n of intravenous contrast. FINDINGS: The elliott-white junctions, ventricular system, basal cisterns appear unremarkable. Age-appropriate cer ebral parenchymal volume loss. Diffusion-weighted imaging shows no evidence of restricted diffusion t o suggest acute/subacute infarct. Intracranial arterial flow voids are maintained. Midline structures show no abnormality. Patchy areas of high T2 signal intensity are seen within the supratentorial per iventricular and subcortical white matter. There is increasing FLAIR signal regions within the subcor tical white matter of the bilateral occipital and left frontal lobes. The susceptibility weighted whitley ges do not reveal any evidence for micro-hemorrhage. The bone marrow signal is within normal limits. Bilateral aphakia. Mild mucosal thickening inferior b ilateral maxillary sinuses. Trace bilateral mastoid effusions. IMPRESSION: 1. No evidence of intracranial mass or acute/subacute infarct. 2. Increasing nonspecific white matter changes from prior MR, likely related to small vessel ischemic disease. Demyelinating disease, chronic migraines, vasculitis, Lyme disease are other considerations . [facility], , 01/31/2025 10:06 AM
--- NOTE | 2025-01-31 10:58 | P.PN ---
Subjective Progress Note Date: 01/31/25 History of present illness; 85-year-old female with a PMH of hypertension, hyperlipidemia, CAD s/p stenting (follows with Dr. Franco), hypothyroidism, early Alzheimer's disease (follows with Dr. Marcelino), diabetes mellitus, anxiety/depression. She presents to the emergency department after being found unresponsive this morning in her bed at [facility]. Apparently, this morning she was on the phone with her children, at that time she seemed a bit agitated and confused however they were not discussed with her. They were then contacted later that morning with the report that she was found unresponsive in her room at [facility]. EMS apparently noted what they deemed to be seizure-like activity and she received 2.5 of Versed en route to the hospital. Upon arrival to the ED she was noted to be unresponsive and appeared to be obtunded. Upon seeing her at bedside, she remains minimally responsive to command, however is able to recite her name, was able to squeeze my hand utilizing her right hand did show some movement in all 4 extremities, albeit requiring multiple prompts in order to do so. On repeat evaluation approximately 1 hour later, she was stopped, alert and oriented talking to family at the bedside and interacting/responding to questions. 01/29 - She is seen and examined at bedside this morning, remaining in the ED. late last night she returned to a similar presentation to how she arrived, being less alert and oriented as well as limitations in interacting. Overnight, she woke up at 1 point and was noted to be very confused, speaking nonsensically, and more agitated to the point where she was given Ativan which helped settle her down. Upon being seen this morning, she responds to deep sternal rub with grunting, however does not follow commands and speech or physical movement. 01/30 - She is seen and examined at bedside this morning. Patient seen and examined at bedside. Overnight she did have agitation. No bowel movements, poor oral intake. Urinating well. She also had episode of atrial fibrillation with RVR, now in sinus. 01/31 - She was seen and examined at bedside this morning, apparently overnight she became agitated and was given Ativan. She has no acute complaints at this time, remaining seemingly obtunded when examined this morning. She has intermittent episodes of being able to tolerate oral intake. Diving advanced to pured diet with supervision, as she passed her bedside swallow study, we will continue to reassess as needed. REVIEW OF SYSTEMS: Pertinent positives and negatives noted in HPI. Physical Exam: General: nontoxic, no distress, appears at stated age; poor dentition Derm: warm, dry, intact Head: atraumatic, normocephalic, symmetric Eyes: EOMI, anicteric sclera Mouth: no lip lesion, mucus membranes moist Cardiovascular: S1 S2 reg, no murmur, rubs, or gallops Lungs: CTA bilateral, no rales, no accessory muscle use Abdominal: soft, non-tender to palpataion, no appreciable organomegaly Extremities: no gross muscle atrophy, mild edema noted in the bilateral lower extremities Neuro: A&O x 0 this morning, unable to assess physical ability Psych: well appearing, appropriate affect Data Received Today: Labs: Sodium 132, potassium 3.8, BUN 20, creatinine 0.69, calcium 8.7, magnesium 1.8 Imagining: Echocardiogram and EEG pending Assessment and plan 85-year-old female with a PMH of hypertension, hyperlipidemia, CAD s/p stenting (follows with Dr. Franco), hypothyroidism, early Alzheimer's disease (follows with Dr. Marcelino), diabetes mellitus, anxiety/depression. She presents to the emergency department after being found unresponsive this morning in her bed at [facility]. #Acute onset encephalopathy, likely metabolic #Suspected seizure #History of Alzheimer's dementia -MRI brain w/o contrast ordered, currently pending -Echocardiogram ordered, currently pending -Keppra increased to 1,000 mg every 12 hours -Neurochecks -Cardiac monitoring -Neurology following -For acute episodes of agitation/sundowning please avoid the use of Ativan and/or Zyprexa, consider Haldol as a substitute #New onset A-fib with RVR, now in sinus -Echocardiogram pending -TSH normal -Patient to be considered for anticoagulation, however per family, risk may outweigh benefit -Continue telemetry monitoring #Hyponatremia, hypovolemic, resolving -Sodium 132 this morning -Continue with NS at 130 cc/h -Continue to monitor sodium -Continue to hold Lasix #Hypertension -Resume home nadolol 20 mg daily, lisinopril decreased to 40 mg once daily -Hydralazine 5 mg every 6 hours as needed for BP > 180/120 -Hold home Norvasc secondary to lower extremity edema and Lasix Chronic conditions: #Anxiety/depression #CAD s/p stenting GI prophylaxis: Famotidine 20 mg twice daily DVT prophylaxis: Heparin 5000 units SQ every 12 hours Code status: No code F: NS 130 cc/h E: Replete as needed N: Regular diet A: Ambulatory Anticipated discharge place: Pending clinical course Anticipated discharge time: Pending clinical course Dictation was produced using [employer] dictation software. please excuse any grammatical, word or spelling errors. Ryan Waldrop MD PGY-1 IM I have seen and evaluated the patient today. Discussed with the resident and agree with the residents finding and plan as documented in the resident's note. Changes highlighted in blue font. Objective - Vital Signs Vital signs: Vital Signs Temp 97.9 F 01/31/25 03:21 Pulse 55 L 01/31/25 03:21 Resp 18 01/31/25 03:21 BP 149/64 01/31/25 03:21 Pulse Ox 94 L 01/31/25 03:21 FiO2 Intake & Output 01/30/25 01/31/25 01/31/25 18:59 06:59 18:59 Intake Total 10 Output Total 700 200 Balance -700 -190 Weight 70.5 kg Intake: IV 10 Invasive Line 3 10 Output: Urine 700 200 Other: Voiding Method Indwelling Catheter Indwelling Catheter # Bowel Movements 0 - Labs CBC & Chem 7: 01/30/25 08:53 01/31/25 04:40 Labs: Abnormal Lab Results - Last 24 Hours (Table) 01/30/25 01/30/25 01/31/25 Range/Units 08:53 08:53 04:40 Hct 35.4 L (37.2-46.3) % MPV 9.4 L (9.5-12.2) fL Sodium 132 L 132 L (137-145) mmol/L Carbon Dioxide 19 L 20 L (22-30) mmol/L BUN 19 H 20 H (7-17) mg/dL
[2025-01-31] MEDS: ACYCLOVIR SODIUM 700 MG in SODIUM CHLORIDE 0.9% 100 ML IVPB SCH (13:44)
--- NOTE | 2025-01-31 13:44 | CA ---
Transthoracic Echo Report Name: Leilani Delgadillo Age: 85 Gender: F : 1940 Exam Date: 01/31/2025 08:41 Exam Location: [place] [facility] Ht (in): 66 Wt (lb): 165 Ordering Physician: Jim Waldrop MD Attending/Referring Phys: Echocardiologist Valerie Kamara RDCS Procedure CPT: Indications: WITH BUBBLE STUDY; Possible CVA Cardiac Hx: Technical Quality: Fair, Pt confused Contrast 1: Total Dose (mL): Contrast 2: Total Dose (mL): MEASUREMENTS (Male / Female) Normal Values 2D ECHO LV Diastolic Diameter PLAX 3.8 cm 4.2 - 5.9 / 3.9 - 5.3 cm LV Systolic Diameter PLAX 2.7 cm IVS Diastolic Thickness 1.2 cm 0.6 - 1.0 / 0.6 - 0.9 cm LVPW Diastolic Thickness 1.1 cm 0.6 - 1.0 / 0.6 - 0.9 cm LV Relative Wall Thickness 0.6 RV Internal Dim ED PLAX 1.6 cm LA Systolic Diameter LX 3.6 cm 3.0 - 4.0 / 2.7 - 3.8 cm LV Diastolic Volume MOD BP 38.3 cm??? 67 - 155 / 56 - 104 cm??? LV Systolic Volume MOD BP 11.7 cm??? 22 - 58 / 19 - 49 cm??? LV Ejection Fraction MOD BP 69.4 % >= 55 % LV Cardiac Index MOD BP 846.7 cm???/min???m??? LV Diastolic Volume MOD 4C 49.0 cm??? LV Systolic Volume MOD 4C 12.3 cm??? LV Ejection Fraction MOD 4C 74.9 % LV Cardiac Index MOD 4C 1171.3 cm???/min???m??? LV Diastolic Length 4C 6.1 cm LV Systolic Length 4C 4.2 cm LV Diastolic Volume MOD 2C 29.2 cm??? LV Systolic Volume MOD 2C 11.0 cm??? LV Ejection Fraction MOD 2C 62.4 % LV Cardiac Index MOD 2C 581.4 cm???/min???m??? LV Diastolic Length 2C 5.9 cm LV Systolic Length 2C 4.4 cm LA Volume 85.5 cm??? 18 - 58 / 22 - 52 cm??? LA Volume Index 45.4 cm???/m??? 16 - 28 cm???/m??? M-MODE Aortic Root Diameter MM 2.9 cm LA Systolic Diameter MM 3.1 cm LA Ao Ratio MM 1.1 AV Cusp Separation MM 1.9 cm DOPPLER AI Peak Velocity 385.6 cm/s AI Peak Gradient 59.5 mmHg AI Pressure Half Time 466.1 ms MV Area PHT 3.0 cm??? Mitral E Point Velocity 107.4 cm/s Mitral A Point Velocity 64.3 cm/s Mitral E to A Ratio 1.7 MV Deceleration Time 250.6 ms TR Peak Velocity 273.1 cm/s TR Peak Gradient 29.8 mmHg Right Ventricular Systolic Press 33.4 mmHg FINDINGS Left Ventricle Left ventricular ejection fraction is estimated at 60-65 %. Mildly increased septal wall thickness. Mildly increased posterior wall thickness. Normal left ventricular systolic function with no obvious regional wall motion abnormalities. Left ventricular cavity size normal. Right Ventricle Normal right ventricular size and function. Right ventricular systolic pressure within normal limits. Right Atrium Severe right atrial dilatation. Left Atrium Severely increased left atrial volume. Mitral Valve Structurally normal mitral valve. Mild mitral regurgitation. No mitral stenosis. Aortic Valve Trileaflet aortic valve. Moderate aortic regurgitation. No aortic stenosis. Tricuspid Valve Structurally normal tricuspid valve. Mild tricuspid regurgitation. No tricuspid stenosis. Pulmonic Valve Structurally normal pulmonic valve. Trace pulmonic regurgitation. No pulmonic stenosis. Pericardium No pericardial or pleural effusion. Aorta Normal size aortic root and proximal ascending aorta. CONCLUSIONS LVEF 60% Mild concentric LVH No obvious regional wall motion abnormality Severe biatrial dilatation Mild central mitral regurgitation Moderate central aortic regurgitation Previewed by: Dr Valeriy Han (Electronically Signed) Final Date: 31 January 2025 13:43
--- NOTE | 2025-01-31 13:48 | P.PN ---
Subjective Progress Note Date: 01/31/25 Patient was initially seen by Dr. Dagoberto Bay, and then followed up by Dr. Castellanos. Please refer to their notes for details. I spoke to patient's daughter who was present at the bedside. She states that patient was fine afternoon, although she was slightly shaky, nervous and anxious. On Friday, on the day of admission, she was found unresponsive. She has recently moved to [facility] on 01/26/2025. This happened because patient suffered from a fall on 01/18/2025 and she cracked 3 ribs and broke her scapula. Therefore she was transferred to the rehab facility. She has been more confused lately. Patient does have sundowners and dementia. However prior to last Friday, she was more coherent, with voice distress, and engaged in conversation. However now she is mumbling, putting things that are not there, hallucinating. She admitted "yes" for headache. Objective - Vital Signs Vital signs: Vital Signs Temp 98.7 F 01/31/25 09:00 Pulse 67 01/31/25 11:23 Resp 16 01/31/25 11:23 BP 143/62 01/31/25 11:23 Pulse Ox 98 01/31/25 11:23 FiO2 Intake & Output 01/30/25 01/31/25 01/31/25 18:59 06:59 18:59 Intake Total 10 Output Total 700 200 300 Balance -700 -190 -300 Weight 70.5 kg Intake: IV 10 Invasive Line 3 10 Output: Urine 700 200 300 Other: Voiding Method Indwelling Catheter Indwelling Catheter Indwelling Catheter # Bowel Movements 0 - Exam On examination, patient is encephalopathic, laying in the bed, in no distress. She is somewhat obtunded. Does not follow directions. She does move all 4 extremities equally. Her face is symmetric. She mumbles. She does admit to having headache. Her neck is slightly stiff. Patient appears slightly thin built. No obvious seizure-like activity. - Labs CBC & Chem 7: 01/30/25 08:53 01/31/25 04:40 Labs: Abnormal Lab Results - Last 24 Hours (Table) 01/31/25 Range/Units 04:40 Sodium 132 L (137-145) mmol/L Carbon Dioxide 20 L (22-30) mmol/L BUN 20 H (7-17) mg/dL Assessment and Plan Assessment: 1. 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 The likely etiology of her seizure is due to her Alzheimer's dementia. Also hyponatremia can increase risk for seizure. Hyponatremia is improved today. 2. Sodium has improved to 130 3. History of Alzheimer's dementia at baseline patient is oriented x 1 and that to herself only. 4. History of falls Plan: 1. MRI of the brain revealed no evidence of intracranial mass or acute/subacute infarct. Increasing nonspecific white matter changes from prior MRI, likely rel ated to small vessel ischemic disease. Demyelinating disease, chronic migraines, vasculitis, Lyme disease or other considerations. I personally reviewed MRI and agree with the findings. However on my review, there is likely bright signal in the very medial part of the right temporal lobe, although not classical pattern for herpes encephalitis. No abnormal DWI signal noted in that region. 2. We will increase Keppra to 750 mg twice daily. Patient started on Keppra 500 mg twice daily in this admission. 3. Seizure precautions seizure pads.. 4. Patient is on Ativan, as needed breakthrough seizure 5. Preliminary EEG was negative for any seizure but showed sharply contoured activity over the right parietal region 6. Patient started on aspirin 81 mg daily as well as Lipitor 40 mg nightly by the primary team 7. Continue neurochecks 8. PT OT and GRAVITY PROSPECTOR are consulted 9. Repeat EEG performed today revealed background slowing, suggestive of moderate encephalopathy. Also revealed frequent right temporal parietal sharp waves, suggestive of underlying cortical irritability. 10. Patient does not have high temperature, or leukocytosis. However with altered mental status, headache, possible seizure, abnormal EEG, will check lumbar puncture to rule out herpes encephalitis. 11. Start acyclovir IV empirically. I discussed with patient's daughter, and she agreed. 12. Cannot perform LP today because patient has received heparin 5000 units subcu this morning. We will hold heparin tonight to perform LP tomorrow.
--- NOTE | 2025-01-31 21:21 | EEG ---
ELECTROENCEPHALOGRAM REPORT PREAMBLE: This is an 85-year-old female, who has a history of Alzheimer's dementia, and had a seizure like activity. CURRENT MEDICATIONS: 1. Keppra. 2. Pepcid. 3. Synthroid. 5. Ativan. 6. Corgard. 7. Zoloft. EEG FINDINGS: This is a 21-channel digital EEG recorded with video component, utilizing 10/20 international system with referential and bipolar montages. Background consists of moderately well-developed and regulated, mixed frequencies of low-voltage 6 Hz theta intermixed with some low amplitude, some alpha activity. Background is posterior dominant, and seems to be slightly reactive to eye opening and closing. Frequent right posterior temporal, sharp appearing waves were seen during the study. Some drowsiness and stage 2 sleep were seen with presence of sleep spindles. No electrographic seizure was recorded. IMPRESSION: This is an abnormal EEG due to: 1. Background slowing suggestive of [id number] encephalopathy. 2. Presence of frequent sharp waves over the right parietal temporal region, suggestive of underlying cortical irritability and tendency for seizure. No electrographic seizure was recorded. MMODL / IJN: [id number] / MARA
[2025-01-31] MEDS: MELATONIN 3 MG TABLET PO SCH (22:36)
[2025-02-01 07:02] LABS: African American GFR (CKD) >90 (>60 ml/min/1.73 sqM); Anion Gap 12 mmol/L; Blood Urea Nitrogen 12 mg/dL (7-17); Carbon Dioxide 16 mmol/L (22-30); Chloride 106 mmol/L (98-107); Glucose 72 mg/dL (74-99); Non-African American GFR(CKD) 86 (>60 ml/min/1.73 sqM); Potassium 3.8 mmol/L (3.5-5.1); Sodium 134 mmol/L (137-145)
[2025-02-01] MEDS: DILTIAZEM DRIP BOLUS FROM BAG 1 MG SOLN IV ONE (11:14)
[2025-02-01] MEDS: DILTIAZEM 125 MG in SODIUM CHLORIDE 0.9% 100 ML IV SCH (11:14)
[2025-02-01] MEDS: carvediloL 6.25 MG TAB PO SCH (11:17)
--- NOTE | 2025-02-01 11:39 | P.PN ---
Subjective Progress Note Date: 02/01/25 History of present illness; 85-year-old female with a PMH of hypertension, hyperlipidemia, CAD s/p stenting (follows with Dr. Franco), hypothyroidism, early Alzheimer's disease (follows with Dr. Marcelino), diabetes mellitus, anxiety/depression. She presents to the emergency department after being found unresponsive this morning in her bed at [facility]. Apparently, this morning she was on the phone with her children, at that time she seemed a bit agitated and confused however they were not discussed with her. They were then contacted later that morning with the report that she was found unresponsive in her room at [facility]. EMS apparently noted what they deemed to be seizure-like activity and she received 2.5 of Versed en route to the hospital. Upon arrival to the ED she was noted to be unresponsive and appeared to be obtunded. Upon seeing her at bedside, she remains minimally responsive to command, however is able to recite her name, was able to squeeze my hand utilizing her right hand did show some movement in all 4 extremities, albeit requiring multiple prompts in order to do so. On repeat evaluation approximately 1 hour later, she was stopped, alert and oriented talking to family at the bedside and interacting/responding to questions. 01/29 - She is seen and examined at bedside this morning, remaining in the ED. late last night she returned to a similar presentation to how she arrived, being less alert and oriented as well as limitations in interacting. Overnight, she woke up at 1 point and was noted to be very confused, speaking nonsensically, and more agitated to the point where she was given Ativan which helped settle her down. Upon being seen this morning, she responds to deep sternal rub with grunting, however does not follow commands and speech or physical movement. 01/30 - She is seen and examined at bedside this morning. Patient seen and examined at bedside. Overnight she did have agitation. No bowel movements, poor oral intake. Urinating well. She also had episode of atrial fibrillation with RVR, now in sinus. 01/31 - She was seen and examined at bedside this morning, apparently overnight she became agitated and was given Ativan. She has no acute complaints at this time, remaining seemingly obtunded when examined this morning. She has intermittent episodes of being able to tolerate oral intake. Diving advanced to pured diet with supervision, as she passed her bedside swallow study, we will continue to reassess as needed. 02/01 - She is seen and examined at bedside this morning. She had no acute events overnight, and has no acute complaints this morning. Awake and more agitated, however unable to appropriately respond or follow commands when seen this morning. Neurology plans to perform a lumbar puncture this morning. Additionally, noted to be in A-fib with RVR this morning. REVIEW OF SYSTEMS: Pertinent positives and negatives noted in HPI. Physical Exam: General: nontoxic, no distress, appears at stated age; poor dentition Derm: warm, dry, intact Head: atraumatic, normocephalic, symmetric Eyes: EOMI, anicteric sclera Mouth: no lip lesion, mucus membranes moist Cardiovascular: S1 S2 reg, no murmur, rubs, or gallops Lungs: CTA bilateral, no rales, no accessory muscle use Abdominal: soft, non-tender to palpataion, no appreciable organomegaly Extremities: no gross muscle atrophy, mild edema noted in the bilateral lower extremities Neuro: A&O x 0 this morning, unable to assess physical ability Psych: well appearing, appropriate affect Data Received Today: Labs: Sodium 134, potassium 3.8, BUN 12, creatinine 0.56, calcium 9.0 Imagining: -Echocardiogram read and reviewed showed EF of 60 to 65% with evidence of severe right atrial dilation and severely increased left atrial filling with evidence of mild mitral, aortic and tricuspid regurgitation -Brain MRI showed no evidence of intracranial mass or acute/subacute infarct; in creasing nonspecific white matter changes from the prior MRI, likely related to small vessel ischemic disease; demyelinating disease, chronic migraines, vasculitis, Lyme disease or other considerations -EEG showed mild to moderate encephalopathy, with the presence of frequent sharp waves over the right parietal temporal region suggestive of underlying cortical irritability Assessment and plan 85-year-old female with a PMH of hypertension, hyperlipidemia, CAD s/p stenting (follows with Dr. Franco), hypothyroidism, early Alzheimer's disease (follows with Dr. Marcelino), diabetes mellitus, anxiety/depression. She presents to the emergency department after being found unresponsive this morning in her bed at [facility]. 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, with bright signal evident at the medial part of the right temporal lobe on repeat brain MRI -Brain MRI read reviewed -Echocardiogram read and reviewed, showed biatrial enlargement -EEG read reviewed -LP to be completed today -Keppra increased to 1,000 mg every 12 hours -As per neurology, empirically started on IV acyclovir -Neurochecks -Cardiac monitoring -Neurology following -For acute episodes of agitation/sundowning please avoid the use of Ativan and/or Zyprexa, consider Haldol as a substitute #New onset A-fib with RVR, another run this morning, now in sinus -Started on Coreg 6.25 mg twice daily -Echocardiogram read and reviewed, showed biatrial enlargement -TSH normal -Patient to be considered for anticoagulation, however per family, risk may outweigh benefit -Continue telemetry monitoring #Hyponatremia, hypovolemic, resolving -Sodium 134 this morning -Continue with NS at 130 cc/h -Continue to monitor sodium -Continue to hold Lasix #Hypertension -Resume home lisinopril decreased to 40 mg once daily -Discontinue nadolol, started on Coreg as above -Hydralazine 5 mg every 6 hours as needed for BP > 180/120 -Hold home Norvasc secondary to lower extremity edema and Lasix Chronic conditions: #Anxiety/depression #CAD s/p stenting GI prophylaxis: Famotidine 20 mg twice daily DVT prophylaxis: Heparin 5000 units SQ every 12 hours Code status: No code F: NS 130 cc/h E: Replete as needed N: Regular diet A: Ambulatory Anticipated discharge place: Pending clinical course Anticipated discharge time: Pending clinical course Dictation was produced using [employer] dictation software. please excuse any grammatical, word or spelling errors. Ryan Waldrop MD PGY-1 IM I have seen and evaluated the patient today. Discussed with the resident and agree with the residents finding and plan as documented in the resident's note. Changes highlighted in blue font. Objective - Vital Signs Vital signs: Vital Signs Temp 98.7 F 02/01/25 04:00 Pulse 114 H 02/01/25 04:00 Resp 18 02/01/25 04:00 BP 154/67 02/01/25 04:00 Pulse Ox 100 02/01/25 04:00 FiO2 Intake & Output 01/31/25 02/01/25 02/01/25 18:59 06:59 18:59 Intake Total 10 Output Total 700 500 Balance -700 -490 Weight 68 kg Intake: IV 10 Invasive Line 4 10 Output: Urine 700 500 Straight 400 Other: Voiding Method Indwelling Catheter External Catheter - Labs CBC & Chem 7: 01/30/25 08:53 02/01/25 06:06 Labs: Abnormal Lab Results - Last 24 Hours (Table) 02/01/25 Range/Units 06:06 Sodium 134 L (137-145) mmol/L Carbon Dioxide 16 L (22-30) mmol/L Glucose 72 L (74-99) mg/dL
[2025-02-01 19:08] LABS: Glucose,CSF 49 mg/dL (40-70); Total Protein,CSF 101 mg/dL (12-60)
[2025-02-01 20:27] LABS: Appearance,CSF Clear; CSF Tube Number 4; CSF Tube Volume 1.5
[2025-02-01 20:28] LABS: Nucleated Cells, CSF 3 u/L (0-5); Red Blood Cell,CSF 2 u/L (0-10)
[2025-02-02 00:11] LABS: Glucose,Whole Blood 134 mg/dL (70-110)
[2025-02-02] MEDS: ACYCLOVIR SODIUM 700 MG in SODIUM CHLORIDE 0.9% 100 ML IVPB SCH (06:00)
--- NOTE | 2025-02-02 07:27 | P.PN ---
Subjective Progress Note Date: 02/01/25 02/01/2025: Patient was seen for a follow-up. Patient is now improved at all. Patient mumbles, denies any headache. Not able to recognize her daughter, calling her "Ami". Patient continues to be severely encephalopathic. 01/31/2025: Patient was initially seen by Dr. Dagoberto Bay, and then followed up by Dr. Castellanos. Please refer to their notes for details. I spoke to patient's daughter who was present at the bedside. She states that patient was fine afternoon, although she was slightly shaky, nervous and anxious. On Friday, on the day of admission, she was found unresponsive. She has recently moved to [facility] [place]. This happened because patient suffered from a fall on 01/18/2025 and she cracked 3 ribs and broke her scapula. Therefore she was transferred to the rehab facility. She has been more confused lately. Patient does have sundowners and dementia. However prior to last Friday, she was more coherent, with voice distress, and engaged in conversation. However now she is mumbling, putting things that are not there, hallucinating. She admitted "yes" for headache. Objective - Vital Signs Vital signs: Vital Signs Temp 98.3 F 02/01/25 11:20 Pulse 107 H 02/01/25 11:20 Resp 17 02/01/25 11:20 BP 135/71 02/01/25 11:20 Pulse Ox 96 02/01/25 11:20 FiO2 Intake & Output 01/31/25 02/01/25 02/01/25 18:59 06:59 18:59 Intake Total 10 30 Output Total 700 500 Balance -700 -490 30 Weight 68 kg Intake: IV 10 30 Invasive Line 4 10 20 Invasive Line 5 10 Output: Urine 700 500 Straight 400 Other: Voiding Method Indwelling Catheter External Catheter External Catheter # Voids 2 # Bowel Movements 1 - Exam On examination, patient is encephalopathic, laying in the bed, in no distress. She is somewhat obtunded. Does not follow directions. She does move all 4 extremities equally. Her face is symmetric. She mumbles. She does admit to having headache. Patient not able to recognize her daughter, calling her "Ami" Her neck is slightly stiff. Patient appears slightly thin built. No obvious seizure-like activity. - Labs CBC & Chem 7: 01/30/25 08:53 02/01/25 06:06 Labs: Abnormal Lab Results - Last 24 Hours (Table) 02/01/25 Range/Units 06:06 Sodium 134 L (137-145) mmol/L Carbon Dioxide 16 L (22-30) mmol/L Glucose 72 L (74-99) mg/dL Assessment and Plan Assessment: 1. 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 The likely etiology of her seizure is due to her Alzheimer's dementia. Also hyponatremia can increase risk for seizure. Hyponatremia is improved today. 2. Sodium has improved to 134 3. History of Alzheimer's dementia at baseline patient is oriented x 1 and that to herself only. 4. History of falls 5. Abnormal EEG Plan: 1. MRI of the brain revealed no evidence of intracranial mass or acute/subacute infarct. Increasing nonspecific white matter changes from prior MRI, likely related to small vessel ischemic disease. Demyelinating disease, chronic migraines, vasculitis, Lyme disease or other considerations. I personally reviewed MRI and agree with the findings. However on my review, there is likely bright signal in the very medial part of the right temporal lobe, although not classical pattern for herpes encephalitis. No abnormal DWI signal noted in that region. 2. Patient on higher dose of Keppra 1000 mg twice a day. Patient started on K eppra 500 mg twice daily in this admission. 3. Seizure precautions seizure pads.. 4. Patient is on Ativan, as needed breakthrough seizure 5. Initial EEG was negative for any seizure but showed sharply contoured activity over the right parietal region 6. Patient started on aspirin 81 mg daily as well as Lipitor 40 mg nightly by the primary team 7. Continue neurochecks 8. PT OT and TYPEWRITER ALIGNER are consulted 9. Repeat EEG 01/31/2025 revealed background slowing, suggestive of moderate encephalopathy. Also revealed frequent right temporal parietal sharp waves, suggestive of underlying cortical irritability. 10. Patient does not have high temperature, or leukocytosis. However with altered mental status, headache, possible seizure, abnormal EEG, will check lumbar puncture to rule out herpes encephalitis. 11. Start acyclovir IV empirically. I discussed with patient's daughter, and she agreed. 12. Patient's daughter initially declined for lumbar puncture. After she discussed with her brother, did decided to proceed with a lumbar puncture. All possible risks and benefits of procedure were informed to the patient's daughter.
[2025-02-02 08:10] LABS: African American GFR (CKD) 30 (>60 ml/min/1.73 sqM); Anion Gap 9 mmol/L; Blood Urea Nitrogen 16 mg/dL (7-17); Calcium 8.2 mg/dL (8.4-10.2); Carbon Dioxide 17 mmol/L (22-30); Chloride 106 mmol/L (98-107); Glucose 103 mg/dL (74-99); Magnesium 1.6 mg/dL (1.6-2.3); Non-African American GFR(CKD) 26 (>60 ml/min/1.73 sqM); Potassium 3.9 mmol/L (3.5-5.1); Sodium 132 mmol/L (137-145)
--- NOTE | 2025-02-02 11:16 | P.PN ---
Subjective Progress Note Date: 02/02/25 History of present illness; 85-year-old female with a PMH of hypertension, hyperlipidemia, CAD s/p stenting (follows with Dr. Franco), hypothyroidism, early Alzheimer's disease (follows with Dr. Marcelino), diabetes mellitus, anxiety/depression. She presents to the emergency department after being found unresponsive this morning in her bed at [facility]. Apparently, this morning she was on the phone with her children, at that time she seemed a bit agitated and confused however they were not discussed with her. They were then contacted later that morning with the report that she was found unresponsive in her room at [facility]. EMS apparently noted what they deemed to be seizure-like activity and she received 2.5 of Versed en route to the hospital. Upon arrival to the ED she was noted to be unresponsive and appeared to be obtunded. Upon seeing her at bedside, she remains minimally responsive to command, however is able to recite her name, was able to squeeze my hand utilizing her right hand did show some movement in all 4 extremities, albeit requiring multiple prompts in order to do so. On repeat evaluation approximately 1 hour later, she was stopped, alert and oriented talking to family at the bedside and interacting/responding to questions. 01/29 - She is seen and examined at bedside this morning, remaining in the ED. late last night she returned to a similar presentation to how she arrived, being less alert and oriented as well as limitations in interacting. Overnight, she woke up at 1 point and was noted to be very confused, speaking nonsensically, and more agitated to the point where she was given Ativan which helped settle her down. Upon being seen this morning, she responds to deep sternal rub with grunting, however does not follow commands and speech or physical movement. 01/30 - She is seen and examined at bedside this morning. Patient seen and examined at bedside. Overnight she did have agitation. No bowel movements, poor oral intake. Urinating well. She also had episode of atrial fibrillation with RVR, now in sinus. 01/31 - She was seen and examined at bedside this morning, apparently overnight she became agitated and was given Ativan. She has no acute complaints at this time, remaining seemingly obtunded when examined this morning. She has intermittent episodes of being able to tolerate oral intake. Diving advanced to pured diet with supervision, as she passed her bedside swallow study, we will continue to reassess as needed. 02/01 - She is seen and examined at bedside this morning. She had no acute events overnight, and has no acute complaints this morning. Awake and more agitated, however unable to appropriately respond or follow commands when seen this morning. Neurology plans to perform a lumbar puncture this morning. Additionally, noted to be in A-fib with RVR this morning. 02/02 - She is seen and examined at bedside this morning. She had no acute events overnight, and has no acute complaints this morning. Remaining encephalopathic. Plan is for continuous EEG to be completed today. REVIEW OF SYSTEMS: Pertinent positives and negatives noted in HPI. Physical Exam: General: nontoxic, no distress, appears at stated age; poor dentition Derm: warm, dry, intact Head: atraumatic, normocephalic, symmetric Eyes: EOMI, anicteric sclera Mouth: no lip lesion, mucus membranes moist Cardiovascular: S1 S2 reg, no murmur, rubs, or gallops Lungs: CTA bilateral, no rales, no accessory muscle use Abdominal: soft, non-tender to palpataion, no appreciable organomegaly Extremities: no gross muscle atrophy, mild edema noted in the bilateral lower extremities Neuro: A&O x 0 this morning, unable to assess physical ability Psych: well appearing, appropriate affect Data Received Today: Labs: Sodium 132, potassium 3.9, bicarb 17, BUN 16, creatinine 1.75, calcium 8.2, magnesium 1.6, CSF total protein elevated at 101 Imagining: -Echocardiogram read and reviewed showed EF of 60 to 65% with evidence of severe right atrial dilation and severely increased left atrial filling with evidence of mild mitral, aortic and tricuspid regurgitation -Brain MRI showed no evidence of intracranial mass or acute/subacute infarct; increasing nonspecific white matter changes from the prior MRI, likely related to small vessel ischemic disease; demyelinating disease, chronic migraines, vasculitis, Lyme disease or other considerations -EEG showed mild to moderate encephalopathy, with the presence of frequent sharp waves over the right parietal temporal region suggestive of underlying cortical irritability Assessment and plan 85-year-old female with a PMH of hypertension, hyperlipidemia, CAD s/p stenting (follows with Dr. Franco), hypothyroidism, early Alzheimer's disease (follows with Dr. Marcelino), diabetes mellitus, anxiety/depression. She presents to the emergency department after being found unresponsive this morning in her bed at [facility]. 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 Doubt viral encephalitis. Awaiting further reccs from nephro. -Keppra increased to 1,000 mg every 12 hours -As per neurology, empirically started on IV acyclovir -Neurochecks -Cardiac monitoring -Neurology following; continuous EEG to be performed today -For acute episodes of agitation/sundowning please avoid the use of Ativan and/or Zyprexa, consider Haldol as a substitute #New onset A-fib with RVR, another run on 02/01/25, now in sinus -Started on Coreg 6.25 mg twice daily -Echocardiogram read and reviewed, showed biatrial enlargement -TSH normal -Patient to be considered for anticoagulation, however per family, risk may outweigh benefit -Continue telemetry monitoring #Non-oliguric PETRA, possibly secondary to retention vs episodes of low BP -Creatinine this morning 1.75, BUN 16 -Bladder scan to be completed next -Consider insertion of Welch catheter pending the results of the bladder scan - previously had Welch catheter on this admission, and 1 episode of straight catheterization following the removal of the Welch catheter -bladder scan was 220. BP is on the low side so will give a bolus of fluids -Renal ultrasound ordered, currently pending -Avoid nephrotoxic agents -consult nephrology #Hyponatremia, hypovolemic, resolving -Sodium 132 this morning -Continue with NS at 130 cc/h -Continue to monitor sodium -Continue to hold Lasix #Hypertension -Resume home lisinopril decreased to 40 mg once daily -Discontinue nadolol, started on Coreg as above -Hydralazine 5 mg every 6 hours as needed for BP > 180/120 -Hold home Norvasc secondary to lower extremity edema and Lasix Chronic conditions: #Anxiety/depression #CAD s/p stenting GI prophylaxis: Famotidine 20 mg twice daily DVT prophylaxis: Heparin 5000 units SQ every 12 hours Code status: No code F: NS 130 cc/h E: Replete as needed N: Regular diet A: Ambulatory Anticipated discharge place: Pending clinical course Anticipated discharge time: Pending clinical course Dictation was produced using [employer] dictation software. please excuse any grammatical, word or spelling errors. Ryan Waldrop MD PGY-1 IM Addending attestation I have seen and evaluated the patient today. Discussed with the resident and agree with the residents finding and plan as documented in the resident's note. Changes highlighted in blue font. Objective - Vital Signs Vital signs: Vital Signs Temp 98 F 02/01/25 20:00 Pulse 99 02/02/25 04:00 Resp 16 02/02/25 04:00 BP 139/83 02/02/25 04:00 Pulse Ox 97 02/02/25 04:00 FiO2 Intake & Output 02/01/25 02/02/25 02/02/25 18:59 06:59 18:59 Intake Total 30 40 Output Total 500 300 Balance -470 -260 Intake: IV 30 40 Invasive Line 4 20 20 Invasive Line 5 10 20 Output: Urine 500 300 Other: Voiding Method External Catheter External Catheter # Voids 2 # Bowel Movements 1 1 - Labs CBC & Chem 7: 02/02/25 11:15 02/02/25 05:36 Labs: Abnormal Lab Results - Last 24 Hours (Table) 02/01/25 02/02/25 Range/Units 17:40 00:00 POC Glucose (mg/dL) 134 H (70-110) mg/dL CSF Total Protein 101 H (12-60) mg/dL Microbiology - Last 24 Hours (Table) 02/01/25 17:40 CSF Gram Stain - Preliminary Cerebral Spinal Fluid
[2025-02-02 11:36] LABS: Basophils # (A) 0.04 10*3/uL (0.00-0.10); Basophils % (A) 0.4 %; Eosinophils # (A) 0.05 10*3/uL (0.04-0.35); Eosinophils % (A) 0.5 %; HCT 35.9 % (37.2-46.3); HGB 12.1 g/dL (12.0-15.0); Lymphocytes # (A) 1.02 10*3/uL (0.90-5.00); Lymphocytes % (A) 9.8 %; MCH 29.7 pg (27.0-32.0); MCHC 33.7 g/dL (32.0-37.0); Mean Platelet Volume 9.7 fL (9.5-12.2); Monocytes # (A) 1.07 10*3/uL (0.20-1.00); Monocytes % (A) 10.3 %; Neutrophils # (A) 8.14 10*3/uL (1.80-7.70); Neutrophils % (A) 78.5 %; Platelet Count 279 10*3/uL (140-440); RBC 4.08 10*6/uL (4.10-5.20); RDW 14.7 % (11.5-14.5); WBC 10.37 10*3/uL (4.50-10.00)
[2025-02-02] MEDS: SODIUM CHLORIDE 0.9% 1,000 ML IV ONE (12:49)
--- NOTE | 2025-02-02 13:20 | US ---
EXAMINATION TYPE: US kidneys/renal and bladder DATE OF EXAM: 02/02/2025 COMPARISON: CT abdomen pelvis 12/07/2022, abdominal ultrasound 05/08/2021 CLINICAL INDICATION: Female, 85 years old with history of darby; Portable exam. Poor historian. TECHNIQUE: Grayscale imaging of the bilateral kidneys and urinary bladder: FINDINGS: EXAM MEASUREMENTS: Right Kidney: 10.3 x 4.3 x 3.7 cm Left Kidney: 10.5 x 4.4 x 4.7 cm Right Kidney: No hydronephrosis or masses seen Left Kidney: No hydronephrosis or masses seen, limited visualization Bladder: distended, anechoic Bilateral Jets not seen There is no evidence for hydronephrosis at this point in time. No nephrolithiasis is seen. No abisai s are identified. Corticomedullary differentiation is maintained bilaterally. The urinary bladder is anechoic. Multiple simple appearing hepatic cysts redemonstrated. IMPRESSION: 1. No hydronephrosis or nephrolithiasis. 2. Multiple hepatic cysts redemonstrated. [facility], , 02/02/2025 1:18 PM
[2025-02-02 13:35] LABS: African American GFR (CKD) 23 (>60 ml/min/1.73 sqM); Non-African American GFR(CKD) 20 (>60 ml/min/1.73 sqM)
--- NOTE | 2025-02-02 14:27 | EEG ---
ELECTROENCEPHALOGRAM REPORT PREAMBLE: This is an 85-year-old female with altered mental status and previously abnormal EEG. EEG FINDINGS: This is a 21-channel digital EEG recorded with video component, utilizing 10/20 international system with referential montages. This is a prolonged study. The recording start time is 11:14 a.m. on 02/02/2025 and recording end time is 12:15 p.m. on 02/02/2025. The background consists of moderately well-developed, but poorly regulated, mixed frequencies of 4 to 5 hertz theta, intermixed with some 3 hertz delta and some sporadic periods of suppression as well. Sporadic right temporal sharp waves were seen. The background does not seem to be reactive to eye opening or closing. Some stage 2 sleep was also seen with presence of sleep spindles intermittently during the study. No electrographic seizure was recorded. Hyperventilation and photic stimulation were not performed. IMPRESSION: This is an abnormal EEG due to: 1. Background slowing of moderate to severe degree. This is suggestive of generalized cerebral dysfunction as can be seen with toxic metabolic encephalopathy or related to diffuse structural brain abnormality. Clinical correlation is recommended. 2. Sporadic right temporal sharp appearing waves, which may suggest underlying cortical irritability. No electrographic seizure was recorded. 3. When compared to the EEG from 01/31/2025, the background appears to be more slower, but the right temporal sharp waves frequency has much decreased. MMODL / IJN: [id number] /
[2025-02-02] MEDS: Lacosamide IV (ages 17+ yrs) 200 MG/20 ML ML IVP SCH (15:31)
--- NOTE | 2025-02-02 15:35 | XR ---
EXAMINATION TYPE: XR chest 1V portable DATE OF EXAM: 02/02/2025 3:24 PM COMPARISON: Chest radiographs from 01/28/2025 TECHNIQUE: XR chest 1V portable Portable AP radiograph of the chest. CLINICAL INDICATION:Female, 85 years old with history of cough, ro aspiration; FINDINGS: Lungs/Pleura: Similar small left pleural effusion with adjacent airspace opacities. Hyperinflation. Pulmonary vascularity: Unremarkable. Heart/mediastinum: Cardiomediastinal silhouette is enlarged and stable. Musculoskeletal: No acute osseous pathology. High riding right humeral head suggesting chronic rotato r cuff tear. IMPRESSION: 1. Similar small left pleural effusion with adjacent airspace opacities which may represent atelecta sis versus infiltrates. Possibly related to aspiration. 2. COPD changes. [facility], , 02/02/2025 3:33 PM
[2025-02-02] MEDS: levETIRAcetam IV 500 MG/5 ML VIAL IVP SCH (20:42)
--- NOTE | 2025-02-02 22:44 | P.CONS ---
History of Present Illness - Reason for Consult Consult date: 02/02/25 Mental status changes leukocytosis question infection Requesting physician: Silvestre Yates - Chief Complaint Unresponsiveness x few days - History of Present Illness Patient is a 85-year-old female with a past medical history significant for Dementia, Diabetes Mellitus, GERD/Reflux, Hypertension, Osteoarthritis (OA), Thyroid Disorder has been brought to the hospital 5 days ago for evaluation of mental status changes after the patient was found on the ground with a left gaze and right-sided weakness and was noted to have seizure like activity with the patient received 2.5 mg of Versed by EMS patient subsequently has been brought to the hospital and has been evaluated and treated by primary and neurology services patient did not have any fever during this h ospital stay borderline hypotension but no need for pressor support and not hypoxic no need for supplemental oxygen patient did have a normal white count on admission slightly elevated at 10.37 today with a left shift patient did have a normal creatinine liver isms mildly elevated she did have a LP completed on 02/01/2025 did show some protein of 101 glucose and white count has been normal viral PCR on the CSF is negative patient did have abdominal bladder ultrasound no hydronephrosis nephrolithiasis chest x-ray left effusion and adjacent airspace opacity which may present atelectasis versus infiltrate infectious disease was consulted because of mental status changes and concern for infection all of information has been obtained from review the chart as the patient was currently unresponsive could not provide any history nursing staff did not mention any vomiting or diarrhea Review of Systems Positive point and negatives has been mentioned in the HPI, complete review of systems was performed and all other systems are negative Past Medical History Past Medical History: Dementia, Diabetes Mellitus, GERD/Reflux, Hypertension, Osteoarthritis (OA), Thyroid Disorder Additional Past Medical History / Comment(s): HX ANEMIA, HIATAL HERNIA, STATES "SORE SPOT" IN STOMACH AND OCCASIONAL VOMITING., ARTHRITIS IN KNEES - USES CANE PRN. hx palpitations, SOB, "calcificaton in veins in heart", abdominal pain and bloating, diet contol "pre diabetic", urinary leakage, alopecia, History of Any Multi-Drug Resistant Organisms: None Reported Past Surgical History: Heart Catheterization With Stent, Hysterectomy Additional Past Surgical History / Comment(s): CHRISSY CATARACTS, BLADDER SUSPENSION, Past Anesthesia/Blood Transfusion Reactions: No Reported Reaction Additional Past Anesthesia/Blood Transfusion Reaction / Comm: DIFF IV STARTS Date of Last Stent Placement:: 11/20/2019 Past Psychological History: Anxiety, Depression Smoking Status: Unknown if ever smoked Past Alcohol Use History: Rare Past Drug Use History: Unable to Obtain - Past Family History Mother Family Medical History: Cancer Additional Family Medical History / Comment(s): PANCREATIC CANCER Medications and Allergies Home Medications Medication Instructions Recorded Confirmed Type Enalapril [Vasotec] 20 mg PO BID@08,199908/02/19 01/28/25 History Furosemide [Lasix] 20 mg PO DAILY@79908/02/19 01/28/25 History Levothyroxine Sodium 100 mcg PO MOTUWETHFRSA@79908/02/19 01/28/25 History Aspirin 81 mg PO DAILY@79905/12/23 01/28/25 History Acetaminophen Tab [Tylenol] 650 mg PO Q4H PRN 01/28/25 01/28/25 History Atorvastatin [Lipitor] 40 mg PO HS@199901/28/25 01/28/25 History Fluticasone Nasal [place] [Flonase 1 spray EA NOSTRIL BID@08,199901/28/25 01/28/25 History Nasal [place]] Hydrocortisone Oint 1 applic TOPICAL BID@799,199901/28/25 01/28/25 History [Hydrocortisone 2.5% Oint] I-Myranda Lutein Tab-Healthy Eyes 1 tab PO DAILY PRN 01/28/25 01/28/25 History Levothyroxine Sodium 50 mcg PO HOWARD@79901/28/25 01/28/25 History Sertraline [Zoloft] 50 mg PO DAILY@79901/28/25 01/28/25 History amLODIPine [Norvasc] 5 mg PO DAILY@79901/28/25 01/28/25 History nadoloL [Corgard] 20 mg PO DAILY@79901/28/25 01/28/25 History Allergies Allergy/AdvReac Type Severity Reaction Status Date / Time amoxicillin [From Prevpac] Allergy Unknown Rash/Hives Verified 01/28/25 14:41 clarithromycin [From Prevpac] Allergy Unknown Rash/Hives Verified 01/28/25 14:41 hydrocodone [From Lortab] Allergy Unknown RED FACE Verified 01/28/25 14:41 AND SKIN YELLOW lansoprazole [From [facility]] Allergy Unknown Rash/Hives Verified 01/28/25 14:41 morphine Allergy Unknown Nausea & Verified 01/28/25 14:41 Vomiting Sulfa (Sulfonamide Allergy Unknown Unknown Verified 01/28/25 14:41 Antibiotics) NSAIDS (Non-Steroidal AdvReac Vomiting Verified 01/28/25 14:41 Anti-Inflamma Physical Exam Vitals: Vital Signs Temp Pulse Resp BP Pulse Ox 02/02/25 15:25 97.3 F L 96 17 112/70 98 02/02/25 12:00 98.1 F 96 17 96/54 94 L 02/02/25 07:50 97.7 F 66 18 118/69 98 02/02/25 04:00 99 16 139/83 97 02/01/25 23:20 103 H 16 98/52 94 L 02/01/25 20:00 98 F 89 16 113/71 98 02/01/25 17:10 98.6 F 97 17 103/69 97 Intake and Output 02/02/25 02/02/25 02/02/25 06:59 14:59 22:59 Intake Total 20 30 Output Total 300 Balance -280 30 Intake: IV 20 30 Invasive Line 4 10 20 Invasive Line 5 10 10 Output: Urine 300 Other: Voiding Method External Catheter Diaper # Bowel Movements 1 GENERAL DESCRIPTION: Elderly female lying in bed, no distress. No tachypnea or accessory muscle of respiration use. HEENT: Shows Pallor , no scleral icterus. Oral mucous membrane is dry. NECK: Trachea central, no thyromegaly. LUNGS: Unlabored breathing. Decreased breath sound at the base HEART: S1, S2, regular rate and rhythm. No loud murmur ABDOMEN: Soft, no tenderness , EXTREMITIES: No edema of feet. SKIN: No rash, no masses palpable. NEUROLOGICAL: The patient is sleepy lethargic orientation could not determine Results CBC & Chem 7: 02/02/25 11:15 02/02/25 12:54 Labs: Abnormal Lab Results - Last 24 Hours (Table) 02/01/25 02/02/25 02/02/25 Range/Units 17:40 00:00 05:36 WBC (4.50-10.00) 10*3/uL RBC (4.10-5.20) 10*6/uL Hct (37.2-46.3) % Immature Gran # (0.00-0.04) 10*3/uL Neutrophils # (1.80-7.70) 10*3/uL Monocytes # (0.20-1.00) 10*3/uL Sodium 132 L (137-145) mmol/L Carbon Dioxide 17 L (22-30) mmol/L Creatinine 1.75 H (0.52-1.04) mg/dL Glucose 103 H (74-99) mg/dL POC Glucose (mg/dL) 134 H (70-110) mg/dL Calcium 8.2 L (8.4-10.2) mg/dL CSF Total Protein 101 H (12-60) mg/dL 02/02/25 02/02/25 Range/Units 11:15 12:54 WBC 10.37 H (4.50-10.00) 10*3/uL RBC 4.08 L (4.10-5.20) 10*6/uL Hct 35.9 L (37.2-46.3) % Immature Gran # 0.05 H (0.00-0.04) 10*3/uL Neutrophils # 8.14 H (1.80-7.70) 10*3/uL Monocytes # 1.07 H (0.20-1.00) 10*3/uL Sodium (137-145) mmol/L Carbon Dioxide (22-30) mmol/L Creatinine 2.24 H (0.52-1.04) mg/dL Glucose (74-99) mg/dL POC Glucose (mg/dL) (70-110) mg/dL Calcium (8.4-10.2) mg/dL CSF Total Protein (12-60) mg/dL Microbiology - Last 24 Hours (Table) 02/01/25 17:40 CSF Gram Stain - Preliminary Cerebral Spinal Fluid Assessment and Plan (1) Allergy to multiple antibiotics Current Visit: Yes Status: Acute Code(s): Z88.1 - ALLERGY STATUS TO OTHER ANTIBIOTIC AGENTS SNOMED Code(s): 040193925 (2) Acute encephalopathy Current Visit: Yes Status: Acute Code(s): G93.40 - ENCEPHALOPATHY, UNSPECIFIED SNOMED Code(s): 38576990 Plan: 1patient presented to hospital with an episode of unresponsiveness that has been worked up by neurology team including LP that was not suggestive of encephalitis or meningitis she has received acyclovir and noticed to have slight worsening of the kidney function could be toxic encephalopathy underlying infectious etiology less likely as the patient not running any fever but not entirely excluded 2-patient with multiple antibiotic ALLERGIES that would limit the number of antibiotic safe to use 3-will obtain blood culture CRP procalcitonin repeated CBC with a.m. lab if any further worsening of the white count no fever will empirically add antibiotics t o cover for possible pneumonia of aspiration etiology We will follow on clinical condition and cultures to further adjust medication if needed Thank you for this consultation we will follow the patient along with you Dictation was produced using [employer] dictation software. please excuse any grammatical, word or spelling errors. Time with Patient: Greater than 30
[2025-02-03 05:59] LABS: Basophils # (A) 0.04 10*3/uL (0.00-0.10); Basophils % (A) 0.5 %; Eosinophils # (A) 0.18 10*3/uL (0.04-0.35); Eosinophils % (A) 2.1 %; HCT 34.4 % (37.2-46.3); HGB 11.7 g/dL (12.0-15.0); Lymphocytes % (A) 9.2 %; MCH 29.6 pg (27.0-32.0); MCV 87.1 fL (80.0-97.0); Mean Platelet Volume 9.8 fL (9.5-12.2); Monocytes # (A) 0.75 10*3/uL (0.20-1.00); Monocytes % (A) 8.6 %; Neutrophils # (A) 6.88 10*3/uL (1.80-7.70); Neutrophils % (A) 78.9 %; Platelet Count 313 10*3/uL (140-440); RBC 3.95 10*6/uL (4.10-5.20); RDW 14.8 % (11.5-14.5); WBC 8.71 10*3/uL (4.50-10.00)
[2025-02-03] MEDS ORDERED: ACYCLOVIR SODIUM 700 MG in SODIUM CHLORIDE 0.9% 100 ML IVPB SCH (06:00)
[2025-02-03 06:45] LABS: African American GFR (CKD) 15 (>60 ml/min/1.73 sqM); Anion Gap 12 mmol/L; Blood Urea Nitrogen 27 mg/dL (7-17); C Reactive Protein 5.4 mg/dL (<1.0); Calcium 8.3 mg/dL (8.4-10.2); Carbon Dioxide 11 mmol/L (22-30); Chloride 113 mmol/L (98-107); Glucose 97 mg/dL (74-99); Magnesium 1.6 mg/dL (1.6-2.3); Non-African American GFR(CKD) 13 (>60 ml/min/1.73 sqM); Phosphorus 5.5 mg/dL (2.5-4.5); Potassium 3.7 mmol/L (3.5-5.1); Sodium 136 mmol/L (137-145)
--- NOTE | 2025-02-03 08:06 | P.PN ---
Subjective Progress Note Date: 02/02/25 02/02/2025: Patient was seen for a follow-up. Patient's daughter was present by the bedside. Patient's daughter states that she had an episode in which she suddenly started screaming, scared of something, and it lasted for about couple minutes. Patient is not improved at all. She continues to be severely encephalopathic. No seizure-like activity otherwise haven't been noticed. No improvement. 02/01/2025: Patient was seen for a follow-up. Patient is now improved at all. Patient mumbles, denies any headache. Not able to recognize her daughter, calling her "Ami". Patient continues to be severely encephalopathic. 01/31/2025: Patient was initially seen by Dr. Dagoberto Bay, and then followed up by Dr. Castellanos. Please refer to their notes for details. I spoke to patient's daughter who was present at the bedside. She states that patient was fine afternoon, although she was slightly shaky, nervous and anxious. On Friday, on the day of admission, she was found unresponsive. She has recently moved to [facility] on 01/26/2025. This happened because patient suffered from a fall on 01/18/2025 and she cracked 3 ribs and broke her scapula. Therefore she was transferred to the rehab facility. She has been more confused lately. Patient does have sundowners and dementia. However prior to last Friday, she was more coherent, with voice distress, and engaged in conversation. However now she is mumbling, putting things that are not there, hallucinating. She admitted "yes" for headache. Objective - Vital Signs Vital signs: Vital Signs Temp 98.1 F 02/02/25 12:00 Pulse 96 02/02/25 12:00 Resp 17 02/02/25 12:00 BP 96/54 02/02/25 12:00 Pulse Ox 94 L 02/02/25 12:00 FiO2 Intake & Output 02/01/25 02/02/25 02/02/25 18:59 06:59 18:59 Intake Total 30 40 Output Total 500 300 Balance -470 -260 Intake: IV 30 40 Invasive Line 4 20 20 Invasive Line 5 10 20 Output: Urine 500 300 Other: Voiding Method External Catheter External Catheter Diaper # Voids 2 # Bowel Movements 1 1 - Exam On examination, patient is encephalopathic, laying in the bed, in no distress. She is somewhat obtunded. Does not follow directions. She does move all 4 extremities equally. Her face is symmetric. She mumbles. She denies headache. Her neck is slightly stiff. Patient appears slightly thin built. No obvious seizure-like activity. - Labs CBC & Chem 7: 02/03/25 05:35 02/03/25 05:35 Labs: Abnormal Lab Results - Last 24 Hours (Table) 02/01/25 02/02/25 02/02/25 Range/Units 17:40 00:00 05:36 WBC (4.50-10.00) 10*3/uL RBC (4.10-5.20) 10*6/uL Hct (37.2-46.3) % Immature Gran # (0.00-0.04) 10*3/uL Neutrophils # (1.80-7.70) 10*3/uL Monocytes # (0.20-1.00) 10*3/uL Sodium 132 L (137-145) mmol/L Carbon Dioxide 17 L (22-30) mmol/L Creatinine 1.75 H (0.52-1.04) mg/dL Glucose 103 H (74-99) mg/dL POC Glucose (mg/dL) 134 H (70-110) mg/dL Calcium 8.2 L (8.4-10.2) mg/dL CSF Total Protein 101 H (12-60) mg/dL 02/02/25 02/02/25 Range/Units 11:15 12:54 WBC 10.37 H (4.50-10.00) 10*3/uL RBC 4.08 L (4.10-5.20) 10*6/uL Hct 35.9 L (37.2-46.3) % Immature Gran # 0.05 H (0.00-0.04) 10*3/uL Neutrophils # 8.14 H (1.80-7.70) 10*3/uL Monocytes # 1.07 H (0.20-1.00) 10*3/uL Sodium (137-145) mmol/L Carbon Dioxide (22-30) mmol/L Creatinine 2.24 H (0.52-1.04) mg/dL Glucose (74-99) mg/dL POC Glucose (mg/dL) (70-110) mg/dL Calcium (8.4-10.2) mg/dL CSF Total Protein (12-60) mg/dL Microbiology - Last 24 Hours (Table) 02/01/25 17:40 CSF Gram Stain - Preliminary Cerebral Spinal Fluid Assessment and Plan Assessment: 1. 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 The likely etiology of her seizure is due to her Alzheimer's dementia. Also hyponatremia can increase risk for seizure. 2. Sodium has improved to 134 3. History of Alzheimer's dementia at baseline patient is oriented x 1 and that to herself only. 4. History of falls 5. Abnormal EEG Plan: 1. MRI of the brain revealed no evidence of intracranial mass or acute/subacute infarct. Increasing nonspecific white matter changes from prior MRI, likely related to small vessel ischemic disease. Demyelinating disease, chronic migraines, vasculitis, Lyme disease or other considerations. I personally reviewed MRI and agree with the findings. However on my review, there is likely bright signal in the very medial part of the right temporal lobe, although not classical pattern for herpes encephalitis. No abnormal DWI signal noted in that region. 2. Patient's renal functions have got worse. We will decrease Keppra from 1000 twice a day down to 750 mg twice a day. Keppra started in this admission. Check Keppra level. 3. Prolonged EEG performed today was abnormal due to background slowing of moderate to severe degree. Sporadic right temporal sharp-appearing waves, which may suggest underlying cortical irritability. No electro graphic seizure was recorded. When compared to the EEG from 01/31/2025, the background appears to be more slower, but the right temporal sharp waves frequency has remarkably reduced. 4. Start Vimpat 100 mg twice a day for seizure tendency. 5. Initial EEG on 01/28/2025 was negative for any seizure but showed sharply contoured activity over the right parietal region 6. Patient started on aspirin 81 mg daily as well as Lipitor 40 mg nightly by the primary team 7. Continue neurochecks 8. PT OT and FI[employer] SC[employer] CLERK are consulted 9. Repeat EEG 01/31/2025 revealed background slowing, suggestive of moderate encephalopathy. Also revealed frequent right temporal parietal sharp waves, suggestive of underlying cortical irritability. 10. Cerebrospinal fluid revealed 2 RBC, 3 WBCs, glucose 49, total CSF protein 101/60. CSF negative for herpes virus and comprehensive viral panel. We will stop acyclovir. 11. Discussed with patient's daughter in detail. She understands the patient's health is gradually declining. She does sense that patient may be at the end of life, if she does not improve in the next couple days. 12. We will consult infectious disease for possible infection, as patient has developed leukocytosis today with WBC 10.37. 13. Discussed with Dr. Carlisle.
[2025-02-03 08:11] VITALS: RESP 14; TEMP 97.7
[2025-02-03 10:13] VITALS: BP 126/57; PULSE 65
--- NOTE | 2025-02-03 12:08 | P.NPCON ---
History of Present Illness - Reason for Consult acute renal failure - History of Present Illness Patient is an 85-year-old female who was admitted to the hospital with mental status changes and seizure-like movements. Patient has underlying history of dementia, hypertension and type 2 diabetes. She has been evaluated by neurology. Imaging of the brain has not shown any evidence of acute events. Mentation has progressively worsened over the last few days. Serum creatinine was 0.5 on 02/01/2025 and progressively increased to 1.75 and it is 3.1 today. Patient has also been more acidotic. She has been voiding. Ultrasound of the kidneys does not show any significant obstructive uropathy. Few low blood pressure readings noted on 02/01 and 02/02/2025. Daughter is present at bedside and I discussed possible need for renal replacement therapy and at this time they would like to avoid any aggressive care and are considering hospice options. Past Medical History Past Medical History: Dementia, Diabetes Mellitus, GERD/Reflux, Hypertension, Osteoarthritis (OA), Thyroid Disorder Additional Past Medical History / Comment(s): HX ANEMIA, HIATAL HERNIA, STATES "SORE SPOT" IN STOMACH AND OCCASIONAL VOMITING., ARTHRITIS IN KNEES - USES CANE PRN. hx palpitations, SOB, "calcificaton in veins in heart", abdominal pain and bloating, diet contol "pre diabetic", urinary leakage, alopecia, History of Any Multi-Drug Resistant Organisms: None Reported Past Surgical History: Heart Catheterization With Stent, Hysterectomy Additional Past Surgical History / Comment(s): CHRISSY CATARACTS, BLADDER SUSPENSION, Past Anesthesia/Blood Transfusion Reactions: No Reported Reaction Additional Past Anesthesia/Blood Transfusion Reaction / Comment(s): DIFF IV STARTS Date of Last Stent Placement:: 11/20/2019 Past Psychological History: Anxiety, Depression Smoking Status: Unknown if ever smoked Past Alcohol Use History: Rare Past Drug Use History: Unable to Obtain - Past Family History Mother Family Medical History: Cancer Additional Family Medical History / Comment(s): PANCREATIC CANCER Medications and Allergies Home Medications Medication Instructions Recorded Confirmed Type Enalapril [Vasotec] 20 mg PO BID@0800,199908/02/19 01/28/25 History Furosemide [Lasix] 20 mg PO DAILY@0800 08/02/19 01/28/25 History Levothyroxine Sodium 100 mcg PO MOTUWETHFRSA@0800 08/02/19 01/28/25 History Aspirin 81 mg PO DAILY@79905/12/23 01/28/25 History Acetaminophen Tab [Tylenol] 650 mg PO Q4H PRN 01/28/25 01/28/25 History Atorvastatin [Lipitor] 40 mg PO HS@199901/28/25 01/28/25 History Fluticasone Nasal [place] [Flonase 1 spray EA NOSTRIL BID@01/28/25 0 01/28/25 History Nasal [place]] Hydrocortisone Oint 1 applic TOPICAL BID@799,199901/28/25 01/28/25 History [Hydrocortisone 2.5% Oint] I-Myranda Lutein Tab-Healthy Eyes 1 tab PO DAILY PRN 01/28/25 01/28/25 History Levothyroxine Sodium 50 mcg PO HOWARD@79901/28/25 01/28/25 History Sertraline [Zoloft] 50 mg PO DAILY@0801/28/25 01/28/25 History amLODIPine [Norvasc] 5 mg PO DAILY@79901/28/25 01/28/25 History nadoloL [Corgard] 20 mg PO DAILY@0801/28/25 01/28/25 History Allergies Allergy/AdvReac Type Severity Reaction Status Date / Time amoxicillin [From Prevpac] Allergy Unknown Rash/Hives Verified 01/28/25 14:41 clarithromycin [From Prevpac] Allergy Unknown Rash/Hives Verified 01/28/25 14:41 hydrocodone [From Lortab] Allergy Unknown RED FACE Verified 01/28/25 14:41 AND SKIN YELLOW lansoprazole [From Prevpac] Allergy Unknown Rash/Hives Verified 01/28/25 14:41 morphine Allergy Unknown Nausea & Verified 01/28/25 14:41 Vomiting Sulfa (Sulfonamide Allergy Unknown Unknown Verified 01/28/25 14:41 Antibiotics) NSAIDS (Non-Steroidal AdvReac Vomiting Verified 01/28/25 14:41 Anti-Inflamma Physical Exam Vitals: Vital Signs Temp Pulse Resp BP BP Pulse Ox 02/03/25 10:05 119/62 02/03/25 09:03 65 126/57 02/03/25 07:32 97.7 F 89 14 115/82 96 02/03/25 04:00 98 16 106/56 95 02/02/25 23:07 95 16 109/61 97 02/02/25 20:00 97.4 F L 98 16 119/71 95 02/02/25 15:25 97.3 F L 96 17 112/70 98 02/02/25 12:00 98.1 F 96 17 96/54 94 L Intake and Output 02/02/25 02/03/25 02/03/25 22:59 06:59 14:59 Intake Total 30 20 10 Balance 30 20 10 Intake: IV 30 20 10 Invasive Line 4 10 10 10 Invasive Line 6 20 10 Oral 0 Other: Voiding Method Diaper Diaper Diaper # Voids 2 2 # Bowel Movements 4 1 Weight 79.5 kg Patient is sleeping, moans to verbal and painful stimuli but does not communicate. Examination of the heart S1 and S2 Examination of the lungs bilateral breath sounds are heard Abdomen is soft nontender Examination lower extremity shows no significant edema Results - Lab Results Most recent lab results Calcium 8.3 mg/dL (8.4-10.2) L 02/03/25 05:35 Phosphorus 5.5 mg/dL (2.5-4.5) H 02/03/25 05:35 Magnesium 1.6 mg/dL (1.6-2.3) 02/03/25 05:35 02/03/25 05:35 02/03/25 05:35 Assessment and Plan Assessment: 1. Acute kidney injury, ATN, nonoliguric. Rule out urine retention. Ultrasound of the kidneys does not show any significant hydronephrosis. UA on initial admission showed 1+ protein and trace blood. No plans for renal replacement therapy. Family is considering hospice care 2. [place] metabolic acidosis secondary to acute kidney injury 3. Mental status changes being followed by neurology, mentation has been worsening. 4. New onset seizures 5. Hypovolemic hyponatremia improved with normal saline Plan: At this time family would like to consider options of hospice care. No plans for renal replacement therapy. I was going to add IV bicarb, however patient has poor IV access and therefore considering plans for hospice care I will hold off on it. Thank you for the consultation.
--- NOTE | 2025-02-03 13:24 | P.DS ---
Providers Date of admission: 01/28/25 14:35 Attending physician: Ernesto Negrete Consults: 01/28/25 18:00 Consult Physician Urgent Consulting Provider: Dagoberto Bay Consult Reason/Comments: AMS Do you want consulting provider notified?: Yes 02/02/25 13:09 Consult Physician Routine Consulting Provider: Alona Díaz Consult Reason/Comments: PETRA Do you want consulting provider notified?: Yes 02/02/25 14:48 Consult Physician Routine Consulting Provider: Alonzo Serrano Consult Reason/Comments: AMS, new onset leukocytosis ?Infection Do you want consulting provider notified?: Yes Primary care physician: Latia Wiley MD Hospital Course: Discharge diagnoses; #Renal failure #Nonoliguric PETRA secondary to ATN #Non-anion gap metabolic acidosis secondary to PETRA #Acute onset encephalopathy, likely metabolic #Suspected seizure #History of Alzheimer's dementia #New onset A-fib with RVR, now in sinus #Hyponatremia, hypovolemic, resolved #Hypertension Hospital course; 5-year-old female with a PMH of hypertension, hyperlipidemia, CAD s/p stenting (follows with Dr. Franco), hypothyroidism, early Alzheimer's disease (follows with Dr. Marcelino), diabetes mellitus, anxiety/depression. She presents to the emergency department after being found unresponsive this morning in her bed at [facility]. Apparently, this morning she was on the phone with her children, at that time she seemed a bit agitated and confused however they were not discussed with her. They were then contacted later that morning with the report that she was found unresponsive in her room at [facility]. EMS apparently noted what they deemed to be seizure-like activity and she received 2.5 of Versed en route to the hospital. Upon arrival to the ED she was noted to be unresponsive and appeared to be obtunded. She has remained intermittently obtunded and having episodes of agitation and confusion. She was followed by neurology and later nephrology during her stay here. Neurology ordered e xtensive testing including brain CT, CT angiography of the head/neck, EEG x2, brain MRI, and later a continuous EEG. In the EEGs showed signs suggestive of generalized cerebral dysfunction related to toxic metabolic encephalopathy, and some evidence of possible cortical irritability and tendency for seizure. She was initiated on antiseizure medications, and was briefly treated for possible viral cause of her encephalitis, which was later ruled out. Upon arrival to the hospital her kidney function remained well within normal limits, and stable, until yesterday when there was a sharp decline in kidney function which further worsened today. Discussed with the family, the overall prognosis, and at that time the discussion was had for the possibility of hospice care to keep her as comfortable as possible. Physical Exam: General: nontoxic, no distress, appears at stated age Derm: warm, dry, intact Head: atraumatic, normocephalic, symmetric Eyes: EOMI, anicteric sclera Mouth: no lip lesion, mucus membranes moist Cardiovascular: S1 S2 reg, no murmur, rubs, or gallops Lungs: CTA bilateral, no rales, no accessory muscle use Abdominal: soft, non-tender to palpataion, no appreciable organomegaly Extremities: no gross muscle atrophy, mild edema noted in the bilateral lower extremities Neuro: A&O x 0 this morning, unable to assess physical ability Psych: well appearing, appropriate affect Dictation was produced using Qvolve dictation software. please excuse any grammatical, word or spelling errors. Ryan Waldrop MD PGY-1 IM Addending attestation I have seen and evaluated the patient today. Discussed with the resident and agree with the residents finding and plan as documented in the resident's note. Changes highlighted in blue font. Patient Condition at Discharge: Poor Plan - Discharge Summary New Discharge Prescriptions: New carvediloL [Coreg] 6.25 mg PO BID-W/MEALS tab Famotidine [Pepcid] 20 mg PO Q48H tab Calcium Carbonate [Tums] 1,000 mg PO Q4HR PRN tab PRN Reason: Dyspepsia levETIRAcetam [Keppra] 750 mg PO Q12HR #60 tab Continue Levothyroxine Sodium 100 mcg PO MOTUWETHFRSA@0800 Aspirin 81 mg PO DAILY@0800 I-Myranda Lutein Tab-Healthy Eyes 1 tab PO DAILY PRN PRN Reason: Supplement Levothyroxine Sodium 50 mcg PO HOWARD@0800 Hydrocortisone Oint [Hydrocortisone 2.5% Oint] 1 applic TOPICAL BID@0800,2000 Acetaminophen Tab [Tylenol] 650 mg PO Q4H PRN PRN Reason: Pain nadoloL [Corgard] 20 mg PO DAILY@0800 Sertraline [Zoloft] 50 mg PO DAILY@08 Fluticasone Nasal Johnson [Flonase Nasal Johnson] 1 spray EA NOSTRIL BID@ Atorvastatin [Lipitor] 40 mg PO HS@1999 Discontinued Furosemide [Lasix] 20 mg PO DAILY@0800 Enalapril [Vasotec] 20 mg PO BID@799,1999 amLODIPine [Norvasc] 5 mg PO DAILY@0800 Discharge Medication List Levothyroxine Sodium 100 mcg PO MOTUWETHFRSA@0808/02/19 [History] Aspirin 81 mg PO DAILY@0805/12/23 [History] Acetaminophen Tab [Tylenol] 650 mg PO Q4H PRN 01/28/25 [History] Atorvastatin [Lipitor] 40 mg PO HS@199901/28/25 [History] Fluticasone Nasal Johnson [Flonase Nasal Johnson] 1 spray EA NOSTRIL BID@799,199901/28/25 [History] Hydrocortisone Oint [Hydrocortisone 2.5% Oint] 1 applic TOPICAL BID@01/28/25 [History] I-Myranda Lutein Tab-Healthy Eyes 1 tab PO DAILY PRN 01/28/25 [History] Levothyroxine Sodium 50 mcg PO HOWARD@79901/28/25 [History] Sertraline [Zoloft] 50 mg PO DAILY@79901/28/25 [History] nadoloL [Corgard] 20 mg PO DAILY@0801/28/25 [History] Calcium Carbonate [Tums] 1,000 mg PO Q4HR PRN tab 02/03/25 [Rx] Famotidine [Pepcid] 20 mg PO Q48H tab 02/03/25 [Rx] carvediloL [Coreg] 6.25 mg PO BID-W/MEALS tab 02/03/25 [Rx] levETIRAcetam [Keppra] 750 mg PO Q12HR #60 tab 02/03/25 [Rx] Follow up Appointment(s)/Referral(s): Hospice,[facility] [REFERRING] - 1 Week Latia Wiley MD [Primary Care Provider] - 1-2 days Discharge Disposition: DISCH TO [facility]
[2025-02-04] MEDS ORDERED: FAMOTIDINE 20 MG TAB PO SCH (09:00)
--- NOTE | 2025-02-04 09:31 | P.PN ---
Subjective Progress Note Date: 02/03/25 02/03/2025: Patient was seen for follow-up. Patient's daughter and her were present at the bedside. Patient has turn for the worse. Her renal functions have further worsened, with BUN 27, creatinine 3.12. Patient is more obtunded. She is coughing at times. She continues to be afebrile. Her white cells have come down to 8.71. Keppra level is 72.0. 02/02/2025: Patient was seen for a follow-up. Patient's daughter was present by the bedside. Patient's daughter states that she had an episode in which she suddenly started screaming, scared of something, and it lasted for about couple minutes. Patient is not improved at all. She continues to be severely encep halopathic. No seizure-like activity otherwise haven't been noticed. No improvement. 02/01/2025: Patient was seen for a follow-up. Patient is now improved at all. Patient mumbles, denies any headache. Not able to recognize her daughter, calling her "Ami". Patient continues to be severely encephalopathic. 01/31/2025: Patient was initially seen by Dr. Dagoberto Bay, and then followed up by Dr. Castellanos. Please refer to their notes for details. I spoke to patient's daughter who was present at the bedside. She states that patient was fine afternoon, although she was slightly shaky, nervous and anxious. On Friday, on the day of admission, she was found unresponsive. She has recently moved to [facility] on 01/26/2025. This happened because patient suffered from a fall on 01/18/2025 and she cracked 3 ribs and broke her scapula. Therefore she was transferred to the rehab facility. She has been more confused lately. Patient does have sundowners and dementia. However prior to last Friday, she was more coherent, with voice distress, and engaged in conversation. However now she is mumbling, putting things that are not there, hallucinating. She admitted "yes" for headache. Objective - Vital Signs Vital signs: Vital Signs Temp 97.7 F 02/03/25 07:32 Pulse 65 02/03/25 09:03 Resp 14 02/03/25 07:32 BP 119/62 02/03/25 10:05 Pulse Ox 96 02/03/25 07:32 FiO2 Intake & Output 02/02/25 02/03/25 02/03/25 18:59 06:59 18:59 Intake Total 40 40 20 Balance 40 40 20 Weight 79.5 kg Intake: IV 40 40 20 Invasive Line 4 20 20 20 Invasive Line 5 10 Invasive Line 6 10 20 Oral 0 Other: Voiding Method Diaper Diaper Diaper # Voids 2 2 # Bowel Movements 4 1 - Exam On examination, patient is even more encephalopathic as compared to yesterday, laying in the bed, appears slightly short of breath, coughing. She is somewhat obtunded. Does not follow directions. No obvious seizure-like activity. - Labs CBC & Chem 7: 02/03/25 05:35 02/03/25 05:35 Labs: Abnormal Lab Results - Last 24 Hours (Table) 02/02/25 02/02/25 02/03/25 Range/Units 12:54 15:00 05:35 RBC 3.95 L (4.10-5.20) 10*6/uL Hgb 11.7 L (12.0-15.0) g/dL Hct 34.4 L (37.2-46.3) % Immature Gran # 0.06 H (0.00-0.04) 10*3/uL Lymphocytes # 0.80 L (0.90-5.00) 10*3/uL Sodium (137-145) mmol/L Chloride (98-107) mmol/L Carbon Dioxide (22-30) mmol/L BUN (7-17) mg/dL Creatinine 2.24 H (0.52-1.04) mg/dL Calcium (8.4-10.2) mg/dL Phosphorus (2.5-4.5) mg/dL C-Reactive Protein (<1.0) mg/dL Levetiracetam 72.0 H (3.0-60.0) ug/mL 02/03/25 Range/Units 05:35 RBC (4.10-5.20) 10*6/uL Hgb (12.0-15.0) g/dL Hct (37.2-46.3) % Immature Gran # (0.00-0.04) 10*3/uL Lymphocytes # (0.90-5.00) 10*3/uL Sodium 136 L (137-145) mmol/L Chloride 113 H (98-107) mmol/L Carbon Dioxide 11 L (22-30) mmol/L BUN 27 H (7-17) mg/dL Creatinine 3.12 H (0.52-1.04) mg/dL Calcium 8.3 L (8.4-10.2) mg/dL Phosphorus 5.5 H (2.5-4.5) mg/dL C-Reactive Protein 5.4 H (<1.0) mg/dL Levetiracetam (3.0-60.0) ug/mL Microbiology - Last 24 Hours (Table) 02/01/25 17:40 CSF Gram Stain - Preliminary Cerebral Spinal Fluid CSF Culture - Preliminary Assessment and Plan Assessment: 1. 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 The likely etiology of her seizure is due to her Alzheimer's dementia. Also hyponatremia can increase risk for seizure. 2. Sodium has improved to 134 3. History of Alzheimer's dementia at baseline patient is oriented x 1 and that to herself only. 4. History of falls 5. Abnormal EEG 6. Acute kidney injury, worsening Plan: 1. MRI of the brain revealed no evidence of intracranial mass or acute/subacute infarct. Increasing nonspecific white matter changes from prior MRI, likely related to small vessel ischemic disease. Demyelinating disease, chronic migraines, vasculitis, Lyme disease or other considerations. I personally reviewed MRI and agree with the findings. However on my review, there is likely bright signal in the very medial part of the right temporal lobe, although not classical pattern for herpes encephalitis. No abnormal DWI signal noted in that region. 2. Patient's renal functions have got worse. We will decrease Keppra from 1000 twice a day down to 750 mg twice a day. Keppra started in this admission. Check Keppra level. 3. Prolonged EEG performed today was abnormal due to background slowing of moderate to severe degree. Sporadic right temporal sharp-appearing waves, which may suggest underlying cortical irritability. No electro graphic seizure was recorded. When compared to the EEG from 01/31/2025, the background appears to be more slower, but the right temporal sharp waves frequency has remarkably reduced. 4. Start Vimpat 100 mg twice a day for seizure tendency. 5. Initial EEG on 01/28/2025 was negative for any seizure but showed sharply contoured activity over the right parietal region 6. Patient started on aspirin 81 mg daily as well as Lipitor 40 mg nightly by the primary team 7. Continue neurochecks 8. PT OT and MARINE ENGINE MACHINIST APPRENTICE are consulted 9. Repeat EEG 01/31/2025 revealed background slowing, suggestive of moderate encephalopathy. Also revealed frequent right temporal parietal sharp waves, mohan ggestive of underlying cortical irritability. 10. Cerebrospinal fluid revealed 2 RBC, 3 WBCs, glucose 49, total CSF protein 101/60. CSF negative for herpes virus and comprehensive viral panel. We will stop acyclovir. 11. Discussed with patient's daughter in detail. She understands the patient's health is gradually declining. She does sense that patient may be at the end of life, if she does not improve in the next couple days. 12. We will consult infectious disease for possible infection, as patient has developed leukocytosis today with WBC 10.37. 13. Patient's family have made patient hospice and she will be transferred to hospice care in the morning. We will sign off.
--- NOTE | 2025-02-04 13:30 | P.PN ---
Subjective Progress Note Date: 02/03/25 Principal diagnosis: Reason for follow-up is cephalopathy question of infection Patient is a 85-year-old female with a past medical history significant for Dementia, Diabetes Mellitus, GERD/Reflux, Hypertension, Osteoarthritis (OA), Thyroid Disorder has been brought to the hospital 6 days ago for evaluation of mental status changes, ID consulted for question of infe ction. On today's evaluation that is 02/03/2025,the patient remains to be afebrile, patient is on room air not requiring supplemental oxygen and breathing comfortably patient remains to be unresponsive no vomiting diarrhea or any other changes reported by the nursing staff. Patient white count normalized to 8.71, creatinine is 3.12 Pro-Dipak 0.32 CRP is 5.4 blood culture so far negative Objective - Vital Signs Vital signs: Vital Signs Temp 97.7 F 02/03/25 07:32 Pulse 65 02/03/25 09:03 Resp 14 02/03/25 07:32 BP 119/62 02/03/25 10:05 Pulse Ox 96 02/03/25 07:32 FiO2 Intake & Output 02/02/25 02/03/25 02/03/25 18:59 06:59 18:59 Intake Total 40 40 10 Balance 40 40 10 Weight 79.5 kg Intake: IV 40 40 10 Invasive Line 4 20 20 10 Invasive Line 5 10 Invasive Line 6 10 20 Oral 0 Other: Voiding Method Diaper Diaper Diaper # Voids 2 2 # Bowel Movements 4 1 - Exam Elderly female lying in bed in no distress Unlabored breathing Unresponsive - Labs CBC & Chem 7: 02/03/25 05:35 02/03/25 05:35 Labs: Abnormal Lab Results - Last 24 Hours (Table) 02/02/25 02/02/25 02/03/25 Range/Units 12:54 15:00 05:35 RBC 3.95 L (4.10-5.20) 10*6/uL Hgb 11.7 L (12.0-15.0) g/dL Hct 34.4 L (37.2-46.3) % Immature Gran # 0.06 H (0.00-0.04) 10*3/uL Lymphocytes # 0.80 L (0.90-5.00) 10*3/uL Sodium (137-145) mmol/L Chloride (98-107) mmol/L Carbon Dioxide (22-30) mmol/L BUN (7-17) mg/dL Creatinine 2.24 H (0.52-1.04) mg/dL Calcium (8.4-10.2) mg/dL Phosphorus (2.5-4.5) mg/dL C-Reactive Protein (<1.0) mg/dL Levetiracetam 72.0 H (3.0-60.0) ug/mL 02/03/25 Range/Units 05:35 RBC (4.10-5.20) 10*6/uL Hgb (12.0-15.0) g/dL Hct (37.2-46.3) % Immature Gran # (0.00-0.04) 10*3/uL Lymphocytes # (0.90-5.00) 10*3/uL Sodium 136 L (137-145) mmol/L Chloride 113 H (98-107) mmol/L Carbon Dioxide 11 L (22-30) mmol/L BUN 27 H (7-17) mg/dL Creatinine 3.12 H (0.52-1.04) mg/dL Calcium 8.3 L (8.4-10.2) mg/dL Phosphorus 5.5 H (2.5-4.5) mg/dL C-Reactive Protein 5.4 H (<1.0) mg/dL Levetiracetam (3.0-60.0) ug/mL Microbiology - Last 24 Hours (Table) 02/01/25 17:40 CSF Gram Stain - Preliminary Cerebral Spinal Fluid CSF Culture - Preliminary Assessment and Plan (1) Allergy to multiple antibiotics Status: Acute Code(s): Z88.1 - SNOMED Code(s): 672301183 (2) Acute encephalopathy Status: Acute Code(s): G93.40 - ENCEPHALOPATHY, UNSPECIFIED SNOMED Code(s): 84968698 Plan: 1patient presented to hospital with an episode of unresponsiveness that has been worked up by neurology team including LP that was not suggestive of encephalitis or meningitis she has received acyclovir and noticed to have slight worsening of the kidney function could be toxic encephalopathy underlying infectious etiology less likely as the patient not running any fever but not entirely excluded 2-patient with multiple antibiotic ALLERGIES that would limit the number of antibiotic safe to use 3-patient is afebrile patient white count normalized procalcitonin is normal did have worsening of her kidney function and family is leaning towards hospice which may be appropriate and we will hold any further workup ID will sign off Dictation was produced using [employer] dictation software. please excuse any grammatical, word or spelling errors. Time with Patient: Less than 30
== END 2025-02-03 16:31 | disposition hospice, inpatient (51) | DRG 91 ==
LOC: EC 12:43 → 3SCARD 14:35
PROVIDERS: ADMIT Student in an Organized Health Care Education/Training Program; ATTEND Student in an Organized Health Care Education/Training Program
DX: G83.84 Todd's paralysis (postepileptic) (principal); G93.41 Metabolic encephalopathy; N17.0 Acute kidney failure with tubular necrosis; E87.20 Acidosis, unspecified; S22.42XA Multiple fractures of ribs, left side, initial encounter for closed fracture; E87.1 Hypo-osmolality and hyponatremia; F02.84 Dementia in other diseases classified elsewhere, unspecified severity, with anxiety; F02.83 Dementia in other diseases classified elsewhere, unspecified severity, with mood disturbance; Z51.5 Encounter for palliative care; Z66 Do not resuscitate; I48.91 Unspecified atrial fibrillation; E11.9 Type 2 diabetes mellitus without complications; G30.0 Alzheimer's disease with early onset; R56.9 Unspecified convulsions; D72.829 Elevated white blood cell count, unspecified; E86.1 Hypovolemia; E03.9 Hypothyroidism, unspecified; I11.9 Hypertensive heart disease without heart failure; F32.A Depression, unspecified; I08.3 Combined rheumatic disorders of mitral, aortic and tricuspid valves; E78.5 Hyperlipidemia, unspecified; I25.10 Atherosclerotic heart disease of native coronary artery without angina pectoris; Z79.82 Long term (current) use of aspirin; Z79.890 Hormone replacement therapy; Z88.1 Allergy status to other antibiotic agents; Z91.81 History of falling; Z95.5 Presence of coronary angioplasty implant and graft; Z79.899 Other long term (current) drug therapy
CPT/HCPCS: 36410; 36415; 70450; 70496; 70498; 70551; 71045; 76770; 76937; 80048; 80053; 80177; 80306; 81001; 82164; 82550; 82565; 82607; 82746; 82945; 83735; 83930; 83935; 84100; 84145; 84157; 84295; 84300; 84425; 84443; 84484; 85025; 85610; 85730; 86140; 87040; 87070; 87205; 87636; 89050; 93005; 93306; 95813; 95816; 96372; 96374; 96375; 96376; 99291